=== PATIENT | female | born 1955 | race Caucasian/White ===

== ENCOUNTER 2017-05-30 09:29 | Emergency (ER) | payer OTHER, SELFPAY ==
[2017-05-30 09:32] VITALS: BP 156/84; PULSE 83; RESP 16; TEMP 36.8; O2SAT 96; BMI 23.3
--- NOTE | 2017-05-30 09:58 | RAD_ITS ---
STUDY: X-RAY - RIGHT HUMERUS REASON FOR EXAM: Female, 62 years old. Patient pulled while walking dog. Posterior right shoulder pain TECHNIQUE: 2 view(s) of the humerus. COMPARISON: None. FINDINGS: There is irregularity of the greater tuberosity of the humeral head with questionable nondisplaced fracture. There is cephalad migration of the humeral head which probably impinge on the rotator cuff. The acromioclavicular joint appears to be unremarkable. The humeral shaft appear unremarkable. There is no demonstrated soft tissue abnormality. RAD/Humerus min 2 Views IMPRESSION: Questionable nondisplaced fracture of the greater tuberosity of the humeral head. Shoulder views or CT scan of the shoulder are recommended. Electronically Signed: Pedro Young MD at 10:34 EST Tel , Service support ,
--- NOTE | 2017-05-30 10:06 | CT_ITS ---
STUDY: CT RIGHT SHOULDER REASON FOR EXAM: Female, 62 years old. Patient pulled while walking dog. Posterior right shoulder pain. RADIATION DOSAGE (If Supplied By Facility): CTDIvol = ( 12.34 ) mGy, DLP = ( 244.52 ) mGycm TECHNIQUE: The patient was scanned in a multi detector CT scanner. High resolution transaxial imaging was performed without the administration of intravenous contrast material. Sagittal and coronal images were reconstructed. Individualized dose optimization techniques were used for this CT. COMPARISON: None. FINDINGS: Normal glenohumeral articulation. Normal glenoid rim, neck and visualized scapula. Degenerative changes in the greater tuberosity of the humeral head. There is a nondisplaced fracture of the greater tuberosity. Normal coracoid process. Normal visualized lateral clavicle. Normal acromioclavicular articulation. There is a Type II morphology (curved), with a neutral orientation. There is a small calcification lateral to the humeral head consistent with calcific tendinitis. CT/Extremity Upper without Contra IMPRESSION: Nondisplaced fracture of the greater tuberosity of the humeral head. Calcific tendinitis of the right shoulder. Electronically Signed: Pedro Young MD at 11:05 EST Tel , Service support ,
--- NOTE | 2017-05-30 10:47 | ED.VISSUMM ---
- ER Visit Summary Date of Service: 05/30/17 Chief Complaint: Right shoulder injury History of Present Illness: The patient is a 62 F states last night around 10 PM she went to let the dog out. He was on a leash and pulled her. She fell down landing on her right shoulder and striking her head. She denies loss of consciousness. No nausea no vomiting. No arm or leg weakness or paresthesias. No speech difficulty. Patient notes pain in the right shoulder particularly with abduction. She states that below the shoulder joint her arm feels fine. Physical Examination: Afebrile vital signs are stable Gen: Well-nourished well-developed Head: Normocephalic atraumatic Eyes: Perrl EOMI ENT: TMs clear no rhinorrhea moist mucous membranes Neck: Supple no lymphadenopathy no JVD nontender CVS: Regular rate rhythm no murmurs normal S1-S2 Respiratory: No distress clear to auscultation bilaterally chest nontender Abdomen: Soft nontender nondistended normal bowel sounds no masses Back: Nontender Extremity: Patient is tender to palpation over the greater tuberosity of the right humerus. She has limited abduction. Neurovascularly she is intact distally. Skin: Normal color no rash Neuro: alert orientated ?3 CN II-XII intact normal strength sensation reflexes gait cerebellar Psych: Normal affect normal mood Test Results: X-rays demonstrate a probable nondisplaced greater tuberosity fracture. CT the shoulder was obtained which confirms the suspicion. Emergency Department Course and Treatment: She will be placed in a sling. I will write pain medication. She is seeing [facility] in the past and wishes to follow-up with them. I will place her images on a disc for their review. Impression: 1. Right humerus fracture This note was generated with [employer] dictation software. It may contain incorrect words, spelling, and punctuation that were not noted in review of the chart prior to signing ED Disposition - Plan for ED Patient: Disposition: Home or Assisted Living Chief Complaint: Upper Extremity Injury Instructions: ED Fx Shoulder Prescriptions: Hydrocodone Bitart/Apap 5-325 [[place] 5/325] 1 - 2 tab PO Q6H PRN PRN 4 Days #20 tab PRN Reason: Pain Referrals: Modesto Jeffries MD [Primary Care Provider] - Additional Instructions: Follow-up with [facility] orthopedics as discussed. Please take your x-rays with you.
--- NOTE | 2017-05-30 10:50 | ED.DCSUM_ITS ---
- ER Visit Summary Date of Service: 05/30/17 Chief Complaint: Right shoulder injury History of Present Illness: The patient is a 62 F states last night around 10 PM she went to let the dog out. He was on a leash and pulled her. She fell down landing on her right shoulder and striking her head. She denies loss of consciousness. No nausea no vomiting. No arm or leg weakness or paresthesias. No speech difficulty. Patient notes pain in the right shoulder particularly with abduction. She states that below the shoulder joint her arm feels fine. Physical Examination: Afebrile vital signs are stable Gen: Well-nourished well-developed Head: Normocephalic atraumatic Eyes: Perrl EOMI ENT: TMs clear no rhinorrhea moist mucous membranes Neck: Supple no lymphadenopathy no JVD nontender CVS: Regular rate rhythm no murmurs normal S1-S2 Respiratory: No distress clear to auscultation bilaterally chest nontender Abdomen: Soft nontender nondistended normal bowel sounds no masses Back: Nontender Extremity: Patient is tender to palpation over the greater tuberosity of the right humerus. She has limited abduction. Neurovascularly she is intact distally. Skin: Normal color no rash Neuro: alert orientated ?3 CN II-XII intact normal strength sensation reflexes gait cerebellar Psych: Normal affect normal mood Test Results: X-rays demonstrate a probable nondisplaced greater tuberosity fracture. CT the shoulder was obtained which confirms the suspicion. Emergency Department Course and Treatment: She will be placed in a sling. I will write pain medication. She is seeing [facility] in the past and wishes to follow-up with them. I will place her images on a disc for their review. Impression: 1. Right humerus fracture This note was generated with [employer] dictation software. It may contain incorrect words, spelling, and punctuation that were not noted in review of the chart prior to signing ED Disposition - Plan for ED Patient: Disposition: Home or Assisted Living Chief Complaint: Upper Extremity Injury Instructions: ED Fx Shoulder Prescriptions: Hydrocodone Bitart/Apap 5-325 [[place] 5/325] 1 - 2 tab PO Q6H PRN PRN 4 Days #20 tab PRN Reason: Pain Referrals: Modesto Jeffries MD [Primary Care Provider] - Additional Instructions: Follow-up with [facility] orthopedics as discussed. Please take your x- rays with you.
[2017-05-30 11:38] VITALS: PULSE 85; RESP 14; O2SAT 98
== END 2017-05-30 11:39 | disposition home or self-care (01) ==
PROVIDERS: Emergency Provider Emergency Medicine; Family Provider Family Medicine; PCP Family Medicine
DX: S42.301A Unspecified fracture of shaft of humerus, right arm, initial encounter for closed fracture (principal); W19.XXXA Unspecified fall, initial encounter; Y93.K1 Activity, walking an animal; Y92.9 Unspecified place or not applicable; F32.9 Major depressive disorder, single episode, unspecified; Z79.899 Other long term (current) drug therapy
CPT/HCPCS: 73060; 73200; 99282

== ENCOUNTER → 2017-07-08 15:33 | Outpatient (CLI) | payer OTHER, SELFPAY ==
--- NOTE | 2017-07-08 15:35 | BD_ITS ---
STUDY: DUAL ENERGY X-RAY ABSORPTIOMETRY / DXA REASON FOR EXAM: Female, 62 years old. The patient is postmenopausal. TECHNIQUE: Bone Mineral Density (BMD) measurements of lumbar spine and bilateral hips were obtained. COMPARISON: Comparison is made with prior study dated November 10, 2007. FINDINGS: Lumbar Spine (L1-L4): g/cm2 (0.947) / T-score (-1.9) / Z-score (-0.6) Findings are suggestive of osteopenia with a moderate fracture risk. Left Femur Total: g/cm2 (0.813) / T-score (-1.5) / Z-score (-0.5) Left Femoral Neck: g/cm2 (0.901) / T-score (-1.0) / Z-score (0.3) Right Femur Total: g/cm2 (0.793) / T-score (-1.7) / Z-score (-0.7) Right Femoral Neck: g/cm2 (0.810) / T-score (-1.6) / Z-score (-0.3) The T-Scores on the most recent prior examination were: Lumbar Spine (L1-L4): There has been worsening of bone density since the previous examination. Left Femur Total: which represents a worsening of 10.4%. Right Femur Total: . BD/Dexa Bone Density Study IMPRESSION: The patient is considered osteopenic as outlined below according to World Abelardo Organization (WHO) criteria with a moderate fracture risk. There has been worsening of bone density since the previous examination. Reference Information: The T-score is the number of standard deviations above or below the standard which is normal for young adults at their peak bone mineral density. The World Health Organization (WHO) interprets the T-scores as follows: Above -1 Normal bone density Between -1 and -2.5 Osteopenia Equal to / or below -2.5 Osteoporosis As a practical clinical guideline, osteopenia may be graded as follows: Mild -1 through -1.5 Moderate -1.6 through -2.0 Severe -2.1 through -2.4 The Z-score is the number of standard deviations above or below age-matched controls. A Z-score of less than -1.5 would be considered abnormal. References: 1. NIH Osteoporosis and Related Bone Diseases http://www.osteo.org 2. International Society for Clinical Densitometry http://www.iscd.org 3. National Osteoporosis Foundation http://www.nof.org Electronically Signed: Bernardo Leonard MD at 14:00 EDT Tel [phone], Service support ,
== END ==
PROVIDERS: Family Provider Family Medicine; PCP Family Medicine; Visit Provider Family Medicine
DX: Z78.0 Asymptomatic menopausal state (principal)
CPT/HCPCS: 77080

== ENCOUNTER 2017-07-13 20:05 | Emergency (ER) | payer OTHER, SELFPAY ==
[2017-07-13 20:06] VITALS: BP 149/95; PULSE 87; RESP 16; TEMP 36.8; O2SAT 95; BMI 23.6
--- NOTE | 2017-07-13 20:51 | RAD_ITS ---
STUDY: X-RAY - RIGHT SHOULDER REASON FOR EXAM: Female, 62 years old. Pain, injury TECHNIQUE: 4 view(s) of the shoulder. COMPARISON: 05/30/2017 FINDINGS: There is nondisplaced fracture at the proximal humerus with evidence of healing compared to prior examination. The glenohumeral joint is intact. Normal glenohumeral articulation. Normal acromioclavicular joint. Normal acromion. The soft tissue structures are unremarkable. Normal visualized pulmonary apex. RAD/Shoulder min 2 Views IMPRESSION: Healing nondisplaced fracture, proximal humerus Electronically Signed: Lio Pulliam MD at 21:33 EDT Tel , Service support ,
[2017-07-13] MEDS: HYDROcodone Bitartrate/Apap 5/325 Tablet PO (20:59)
--- NOTE | 2017-07-13 21:10 | RAD_ITS ---
STUDY: X-RAY - RIGHT HAND REASON FOR EXAM: Female, 62 years old. Injury, pain TECHNIQUE: 3 view(s) of the hand. COMPARISON: None. FINDINGS: There is osteoarthritis at the basal joint of the thumb. Normal radiocarpal articulation. Normal distal radioulnar joint. Normal visualized carpal bones. Normal carpal articulations Normal carpometacarpal articulation of the thumb. Normal second through fifth carpometacarpal joints. Normal metacarpi. Normal metacarpophalangeal joints of the second through fifth fingers. Normal proximal and distal interphalangeal joints of the second through fifth fingers. Normal phalanges of the second through fifth fingers. The soft tissue structures are unremarkable. RAD/Hand Min 3 Views IMPRESSION: No fracture Electronically Signed: Lio Pulliam MD at 21:26 EDT Tel , Service support ,
--- NOTE | 2017-07-13 22:00 | ED.DCSUM_ITS ---
- ER Visit Summary Date of Service: 07/13/17 Chief Complaint: Right upper extremity injury History of Present Illness: The patient is a 62 F who has a right shoulder fracture sustained approximately 6 weeks ago. Patient has been in a sling. Tonight she was out with her dog when she got pulled by the lesion fell onto her right shoulder. Complaining of worsening right shoulder pain and shooting pain in her right hand. She did not lose consciousness. Physical Examination: Vital signs unremarkable. Patient sitting upright in bed. She is uncomfortable but no acute distress. Head neck examination reveals a very small abrasion to the nasal bridge. There is no bony tenderness. No focal C-spine tenderness. Heart is regular rate and rhythm. Lung sounds are clear. Abdomen is soft nontender. Right upper extremity examination reveals no tenderness of the clavicle. She has diffuse tenderness around the right humeral head. There is no evidence of dislocation. There is no tenderness of the elbow. She does have diffuse tenderness of the right hand without deformity. Pain is worse over the index and middle finger phalanges and metacarpals. She has good cap refill and sensation distally. Test Results: Right hand x-rays reveal no fracture. Right shoulder x-ray reveals a healing nondisplaced fracture the proximal humerus. Emergency Department Course and Treatment: Patient was given [place] here for pain. On repeat evaluation she is resting much more comfortably. Test results were discussed with patient and at bedside. She will remain in her sling and follow-up with her orthopedist at [facility]. She really has pain medication at home that she can use. Treatment Plan: [] Disposition: Discharge Impression: Right shoulder contusion with healing proximal humerus fracture This note was generated with [employer] dictation software. It may contain incorrect words, spelling, and punctuation that were not noted in review of the chart prior to signing ED Disposition - Plan for ED Patient: Disposition: Home or Assisted Living Chief Complaint: Upper Extremity Injury Instructions: ED Contusion Upper Ext Referrals: Modesto Jeffries MD [Primary Care Provider] -
[2017-07-13 22:07] VITALS: BP 162/80; PULSE 62; RESP 16; O2SAT 95
== END 2017-07-13 22:08 | disposition home or self-care (01) ==
PROVIDERS: Emergency Provider Emergency Medicine; Family Provider Family Medicine; PCP Family Medicine
DX: S40.011A Contusion of right shoulder, initial encounter (principal); W19.XXXA Unspecified fall, initial encounter; S42.201A Unspecified fracture of upper end of right humerus, initial encounter for closed fracture; X58.XXXA Exposure to other specified factors, initial encounter; S00.31XA Abrasion of nose, initial encounter; Y93.9 Activity, unspecified; Y92.9 Unspecified place or not applicable; F41.9 Anxiety disorder, unspecified; F32.9 Major depressive disorder, single episode, unspecified; Z90.710 Acquired absence of both cervix and uterus; Z79.899 Other long term (current) drug therapy; Z72.0 Tobacco use
CPT/HCPCS: 73030; 73130; 99283

== ENCOUNTER 2017-08-11 16:30 | Outpatient (RCR) | payer OTHER, SELFPAY ==
--- NOTE | 2017-07-13 13:35 | HP.PTEVAL ---
Patient's Visit Information MRAI EDEN is a 62 year old F referred to Physical Therapy by DR.RSTACH Evelina with a diagnosis of RIGHT SHOULDER NON-DISPLACED FX OF GREATER TUBEROSITY OF HUMERUS.. Date of Evaluation: 07/13/17 Physical Therapist: Aurelia Valencia - Visit Plan Frequency: 2-3x /Week Duration: 4-6 Weeks Plan: POSTURE CORRECTION/STRENGTHENING, INSTRUCTION IN APPROPRIATE BODY MECHANICS AND ACTIVITY MODIFICATIONS. [place] UE ROM, STRETCHING AND STRENGTHENING STARTING WITH PASSIVE ROM FOR 2 WEEKS THEN BEGIN AROM. HEP INSTRUCTION. - Subjective Subjective: Diagnosis: CLOSED NON-DISPLACED FX OF GREATER TUBEROSITY OF THE RIGHT HUMERUS. 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 Disability: NO. Present symptoms: RIGHT SHOULDER AND UPPER ARM PAIN. NO PAIN, NUMBNESS OR TINGLING BELOW THE ELBOW. Present since: 05/30/17. Pain Scale: WORST 9/10, LEAST 0/10. Currently: 0/10. Commenced as a result of: FALL. Symptoms at onset: RIGHT SHOULDER/ARM. Worse: TRYING TO REACH. Better: RESTING IT. Disturbed sleep: YES. Previous history/Previous treatment: UNREMARKABLE. HISTORY OF NECK ARTHRITIS. Dizziness: NO. Tinnitis: CHRONIC. Nausea: NO. Difficulty Swollowing: NO. Gait: NORMAL. Accidents: FX LEFT WRIST LAST YEAR - ORIF. FROM FALL. Unexplained weight loss: NO. Imaging: YES - ED AND THEN AT [facility]. PATIENT REPORTS SHE BROKE HER ARM IN 3 PLACES. NO MRI. PMH: DEPRESSION. NO CANCER. NO CVA. NOT DIABETIC. NO HEART DZ. Recent major surgery: 2017 ORIF LEFT WRIST. OTHER: PATIENT REPORTS THAT SHE ADMITS SHE HAS BEEN USING HER RIGHT ARM OUT OF THE SLING. PATIENT IS RIGHT HAND DOMINANT. - Objective Sitting Posture: POOR. Other Observations: INDEP GAIT INTO PT WITH NO GROSS DEVIATIONS NOTED. PATIENT IS ABLE TO INDEP'LY DON AND DOFF SLING. Motor deficit: LEFT UE WFL. RIGHT NT. Sensory deficit: INTACT. ROM deficit: PATIENT IS VERY GUARDED AND PAINFUL WITH PROM TESTING TODAY. IN SUPINE, RIGHT SHOULDER PROM INTO FLEX = 65 DEG, ABD 45 DEG, IR = 30 DEG, ER = 10 DEG. ROTATION TESTED WITH 40 DEG ABD. RIGHT ELBOW, FOREARM, WRIST AND HAND AROM IS FULL AND DOES NOT PROVOKE RIGHT SHOULDER PAIN. Cervical Mvmt Loss: Flex: NIL. Pro: NIL. Ext: MOD. Ret: RD. RSB: MOD. LSB: MOD. R Rot: MOD. L Rot: MOD. PATIENT HAS C/O STIFFNESS WITH CERVICAL ROM TESTING ALL PLANES AND REPORTS IT HAS BEEN THIS WAY FOR YEARS. Postural strength: POOR. TREATMENT: INSTRUCTED PATIENT IN CW AND CCW PASSIVE PENDULUM EX X [address] HOME INSTRUCTION TO CONTINUE PENDULEM EX 3 TIMES A DAY ALONG WITH AROM OF ELBOW, FOREARM, WRIST AND HAND. PATIENT DEMO'S GOOD TECHNIQUE WITH AND TOLERANCE TO ALL HOME EX'S. - Goals Goal 1:: DECREASE C/O RIGHT UE PAIN Goal Time Frame: 4-6 Weeks Goal 2:: IMPROVE LIFTING, REACHING, PUSHING, PULLING, ADL, WORK, RECREATIONAL AND SLEEP FUCNTION. Goal Time Frame: 4-6 Weeks Goal 3:: INDEP HEP Goal Time Frame: 4-6 Weeks - Rehabilitation Potential Rehabilitation Potential: Fair - Anticipated Interventions Patient/Client Instruction: Educate patient on: Condition, Plan of Care, Risk Factors, Benefits of Fitness Program For the Purpose of:: To improve self management Therapeutic Exercise to Include: Strength training, Body mechanics, Postural training, Passive ROM, Active ROM, Scapular Strength/Stabilization For the Purpose of:: To decrease pain, To increase ROM, To improve muscle performance and motor function, To improve ability to perform ADL's, To improve ability of physical actions for home/community/work/leisure Manual Therapy Techniques to Include: Passive ROM For the Purpose of:: To increase ROM Cryotherapy (ice pack, ice massage): Yes Thermo therapy (hot pack): Yes For the Purpose of:: To decrease pain, To decrease swelling/inflammation, To increase ROM Thank you for the opportunity to evaluate your patient. For Medicare and Medicare HMO plans, please review the plan of care and approve it. It will need to be FAXED BACK to us at [phone] for Medicare purposes. Please let me know if there are questions or concerns regarding this plan of care. Physician Signature: Date:
--- NOTE | 2017-08-09 17:34 | HP.PTREVAL_ITS ---
Iglesia Bass, , It has been my pleasure to treat MARI EDEN over the last 8 visits for RIGHT SHOULDER NON-DISPLACED FX OF GREATER TUBEROSITY OF HUMERUS.. Please see the progress note below for an update on the physical therapy plan of care! Subjective: PATIENT REPORTS SHE THINKS SHE WANTS TO CANCEL THE REST OF HER THERAPY BECAUSE SHE CAN MOVE HER ARM A LOT MORE NOW. SHE REPORTS IT IS SUMMER AND SHE IS BUSY. 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 SHE ALSO REPORTS IT GETS SORE THE DAY AFTER THERAPY. SHE STATES SHE IS HAPPY WITH HOW BAL AND JOSE TREAT HER AND SHE FEELS THEY WOULD EASE UP IF SHE WANTED THEM TO. SHE ADMITS THAT SHE DOES NOT DO HER EX'S AT HOME EVERYDAY - MAYBE EVERY OTHER DAY. SHE ALSO REPORTS SHE HAS BEEN USING HER ARM TOO AND THEN SHE FEELS GUILTY BECAUSE SHE KNOWS SHE ISN'T SUPPOSED TO BE. 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 SHE REPORTS SHE STILL GETS A CATCH IN HER SHOULDER WHEN STRETCHING IT BUT THE CATCH IS GETTING BETTER. SHE HAS A FOLLOW UP APPOINTMENT WITH HER DOCTOR 08/23/17. SHE REPORTS HE TOLD HER NOT TO LIFT WITH HER ARM YET BECAUSE HE IS AFRAID SHE MIGHT TEAR IT. STATES HE TOLD HER HE MIGHT DO A CAT SCAN NEXT VISIT. Objective/Function: UPON EXAM, PATIENT STILL HAS SIGNIFICANT DECREASED RIGHT SHOULDER PROM AND AROM. SEATED ACTIVE FLEX = 110 DEG, ABD = 70 DEG. SUPIINE PROM: FLEX 125 DEG, ABD 78 DEG, ER/IR 40/45 DEG WITH 45 DEG ABD. SHE HAS PAIN WITH ROM TESTING ALL PLANES. Plan Plan: I STRONGLY RECOMMENDED CONTINUED PT PER POC. SHE IS RELUCTANT BUT AGREED TO CONTINUE PT 1X/WEEK. WE WILL CONTINUE WITH ROM - AND NO RESISTANCE YET UNTIL OK'D BY Goals Goal 1:: DECREASE C/O RIGHT UE PAIN Goal Time Frame: 4-6 Weeks Goal Progress: Progressing Goal 2:: IMPROVE LIFTING, REACHING, PUSHING, PULLING, ADL, WORK, RECREATIONAL AND SLEEP FUCNTION. Goal Time Frame: 4-6 Weeks Goal Progress: Progressing Goal 3:: INDEP HEP Goal Time Frame: 4-6 Weeks Goal Progress: Progressing Anticipated Interventions Patient/Client Instruction: Educate patient on: Condition, Plan of Care, Risk Factors, Benefits of Fitness Program For the Purpose of:: To improve self management Therapeutic Exercise to Include: Strength training, Body mechanics, Postural training, Passive ROM, Active ROM, Scapular Strength/Stabilization For the Purpose of:: To decrease pain, To increase ROM, To improve muscle performance and motor function, To improve ability to perform ADL's, To improve ability of physical actions for home/community/work/leisure Manual Therapy Techniques to Include: Passive ROM For the Purpose of:: To increase ROM Cryotherapy (ice pack, ice massage): Yes Thermo therapy (hot pack): Yes For the Purpose of:: To decrease pain, To decrease swelling/inflammation, To increase ROM Please do not hesitate to contact me at [phone] by phone or Fax: if you have questions or concerns regarding this new plan of care! Sincerely, Aurelia Valencia
--- NOTE | 2017-09-22 17:54 | HP.PT.NRP ---
HP - Discharge Summary (1) - Patient Information MARI EDEN was seen in my office for initial evaluation on 07/13/17. The following Plan of Care was established for this patient: Initial Frequency: 2-3x /Week Initial Duration: 4-6 Weeks - Anticipated Interventions Patient/Client Instruction: Educate patient on: Condition, Plan of Care, Risk Factors, Benefits of Fitness Program For the Purpose of:: To improve self management Therapeutic Exercise to Include: Strength training, Body mechanics, Postural training, Passive ROM, Active ROM, Scapular Strength/Stabilization For the Purpose of:: To decrease pain, To increase ROM, To improve muscle performance and motor function, To improve ability to perform ADL's, To improve ability of physical actions for home/community/work/leisure Manual Therapy Techniques to Include: Passive ROM For the Purpose of:: To increase ROM Cryotherapy (ice pack, ice massage): Yes Thermo therapy (hot pack): Yes For the Purpose of:: To decrease pain, To decrease swelling/inflammation, To increase ROM This patient was last seen in our office . Pertinent comments regarding their Physical therapy will appear below: This patient has not returned to Physical Therapy and is appropriate to return to MD for further follow-up as needed. At this point I will be discontinuing this patient from physical therapy. I would be happy to see this patient again in the future if found appropriate by the physician. Thank you! Aurelia Valencia
== END 2017-08-11 19:00 | disposition home or self-care (01) ==
LOC: PT 16:30
PROVIDERS: Family Provider Family Medicine; PCP Family Medicine; Visit Provider Orthopaedic Surgery Hand Surgery
DX: S42.254D Nondisplaced fracture of greater tuberosity of right humerus, subsequent encounter for fracture with routine healing (principal)
CPT/HCPCS: 97110; 97140; 97162; 97530

== ENCOUNTER 2017-08-30 15:34 | Emergency (ER) | payer OTHER, SELFPAY ==
[2017-08-30 15:35] VITALS: BP 125/79; PULSE 81; RESP 15; TEMP 36.3; O2SAT 97; BMI 24.5
--- NOTE | 2017-08-30 15:37 | RAD_ITS ---
STUDY: X-RAY - RIGHT WRIST REASON FOR EXAM: Female, 62 years old. Trauma TECHNIQUE: 3 view(s) of the wrist were obtained. COMPARISON: None. FINDINGS: Normal visualized distal radius and ulna. Normal radiocarpal articulation. Normal distal radioulnar articulation. Normal carpal bones. Normal carpal articulations. Mild arthrosis of the carpometacarpal articulation of the thumb. Normal second through fifth carpometacarpal articulations. Normal visualized metacarpal bones. The soft tissue structures are unremarkable. RAD/Wrist min 3 Views IMPRESSION: Mild degenerative changes. No evidence for acute fracture Electronically Signed: Darci Porter MD at 17:10 EDT , Service support ,
--- NOTE | 2017-08-30 15:57 | ED.DCSUM_ITS ---
- ER Visit Summary Date of Service: 08/30/17 Chief Complaint: The right wrist secondary to fall yesterday History of Present Illness: The patient is a 62 F who is right-handed presents with injury to her right wrist. She fell onto her outstretched right upper extremity. She localizes the pain over the radius and dorsal surface of the right wrist. Movement exacerbates her pain. She denies paresthesia, anesthesia moderates. Denies prior injury. She denies any pain in her digits, elbow or shoulder. Physical Examination: Vital signs are noted. There is swelling of the wrist. There is pain abrasion over the distal radius radial side. She has pain to palpation over the extensor tendon in the first compartment. She has a positive Kristie test. There is no pain the patient the anatomical snuffbox or axial loading the thumb. Median, radial and ulnar function intact. Radial pulses palpable. There is no pain the patient of the phalanges or metacarpal bones. There is no subungual hematoma noted. Cap refill is normal. Sensation is normal. There is no pain the patient over the lateral medial epicondyle olecranon process. Test Results: Three-view x-ray was ordered per nursing staff per protocol. The x-ray was interpreted by me as negative for fracture. There is no evidence of a scapholunate dissociation. There is no volar fat pad noted. Emergency Department Course and Treatment: Anti-inflammatories since no contra indication thumb spica splint Treatment Plan: Thumb spica splint for wrist sprain extensor tendon first compartment, De Quervain tenosynovitis Disposition: Discharged to home Impression: De Quervain's tenosynovitis right wrist initial encounter This note was generated with [employer] dictation software. It may contain incorrect words, spelling, and punctuation that were not noted in review of the chart prior to signing ED Disposition - Plan for ED Patient: Disposition: Home or Assisted Living Chief Complaint: Upper Extremity Injury Instructions: ED De Quervain Tenosynovitis Prescriptions: Naproxen [Naprosyn] 500 mg PO BID #14 tab Referrals: Modesto Jeffries MD [Primary Care Provider] - 1 Week if not improving
== END 2017-08-30 16:42 | disposition home or self-care (01) ==
LOC: ED 16:33
PROVIDERS: Emergency Provider Emergency Medicine; Family Provider Family Medicine; PCP Family Medicine
DX: M65.4 Radial styloid tenosynovitis [de Quervain] (principal); Z72.0 Tobacco use
CPT/HCPCS: 73110; 99282

== ENCOUNTER → 2018-04-12 16:59 | Outpatient (CLI) | payer OTHER, SELFPAY | PROVIDERS: Family Provider Family Medicine; PCP Family Medicine; Referring Provider Otolaryngology Otolaryngology/Facial Plastic Surgery; Visit Provider Otolaryngology Otolaryngology/Facial Plastic Surgery | DX: J34.89 Other specified disorders of nose and nasal sinuses (principal) | CPT/HCPCS: 87070; 87205 ==

== ENCOUNTER 2018-04-18 07:05 | Inpatient (IN) | payer OTHER, SELFPAY ==
[2018-04-18] VITALS (22 sets, daily range): BP systolic 111–151; BP diastolic 63–85; PULSE 61–85; RESP 14–20; TEMP 36.6–37; O2SAT 97–100; BMI 24.4; BMI 24.5; BMI 24.6
--- NOTE | 2018-04-18 07:31 | EKG12_ITS ---
Test Reason : CP Blood Pressure : / mmHG Vent. Rate : 076 BPM Atrial Rate : 076 BPM P-R Int : 136 ms QRS Dur : 078 ms QT Int : 376 ms P-R-T Axes : 051 -46 050 degrees QTc Int : 423 ms Normal sinus rhythm Possible Left atrial enlargement Left anterior fascicular block Possible Lateral infarct , age undetermined Abnormal ECG Confirmed by CLEM SHEIKH, TRAY ([id number]), publishing editor WESLEY MARIANO ([id number]) on 04/19/2018 5:15:59 PM Referred By: Tray Castillo Confirmed By:TRAY CASTILLO MD
--- NOTE | 2018-04-18 07:34 | RAD_ITS ---
STUDY: X-RAY CHEST REASON FOR EXAM: Female, 62 years old. Chest pain. TECHNIQUE: Single AP portable view of the chest. COMPARISON: May 28, 2015 FINDINGS: Cardiac monitoring leads are present. The lungs are clear and hyperexpanded. There is no demonstrated pleural abnormality. There is borderline cardiomegaly. Normal mediastinum and aydin. Normal visualized pulmonary arteries. There is atherosclerotic tortuosity of the aortic arch and descending thoracic aorta. There is demineralization of the osseous structures. There are mild degenerative changes of thoracic spine. There is deformity of the posterior right-sided rib probably related to old rib fracture. There is no demonstrated abnormality of the visualized soft tissue structures of the upper abdomen. RAD/Chest 1 View (Portable) IMPRESSION: No radiographic evidence of acute cardiopulmonary disease. Electronically Signed: Jennifer Jordan MD at 8:08 EST , Service support ,
[2018-04-18] MEDS: Aspirin 81 MG TAB.CHEW 324 MG PO (07:46)
[2018-04-18] MEDS: 0.9% Normal Saline 1,000 ML 150 ML IV (07:46)
--- NOTE | 2018-04-18 07:50 | ED.VISSUMM ---
- ER Visit Summary Date of Service: 04/18/18 Chief Complaint: Chest pain History of Present Illness: The patient is a [address] Modesto Jeffries. She reports that she developed chest pain yesterday afternoon while going up and down the steps. She reports that she became lightheaded, short of breath, diaphoretic, and nauseated. She did not vomit. She describes this as a pressure. She does report is been constant since this began yesterday. However, it is much worse when she exerts herself. It is 2 out of 10 currently and 6 out of 10 with exertion. She states that it improves with rest. Patient reports that she had an episode of this in the summer when she was mowing the lawn. She has not had a evaluation for this. She reports that her last stress test was a long time ago. Physical Examination: Vitals: Stable. Afebrile. General: Well-nourished and well-developed. Head: Normocephalic atraumatic. Neck: Supple, no lymphadenopathy. No JVD. Nontender. Cardiovascular: Regular rate and rhythm. No murmurs. Respiratory: No respiratory distress. Clear to auscultation bilaterally. Abdominal: Soft, nontender, nondistended, normal bowel sounds. No guarding, rebound, or peritoneal signs. Back: Nontender. Extremities: Nontender, no edema. Skin: Normal color, no rash. Neurologic: Alert and oriented ?3. Cranial nerves II through XII are intact. Normal strength and sensation. Psych: Normal affect. Test Results: EKG is sinus at [address] changes. She does have a Q wave in lead V6 and lead II. There is no old EKG for comparison. CBC is more for a white count of 4.2, H&H 15.5 and 47.8, segmented neutrophils of 15, lymphocytes 62, monocytes of 18. Chem-7 is more for BUN of 23, creatinine 1.16, glucose 114. Troponin is 3.04. Chest x-ray shows chronic changes. Emergency Department Course and Treatment: Patient had an IV placed. She was treated with aspirin p.o. She is resting comfortably. Treatment Plan: The patient was discussed with Dr. Castillo. He has that she be given Brilinta. Hold on heparin and Lovenox at this time. He plans on doing a heart catheterization today. The patient was then discussed with Dr. Prakash. She will be admitted to the hospital for further evaluation and treatment. Disposition: Admitted in improved condition. Impression: 1. Non-ST elevation IA. 2. ARIADNA score of 2. 3. Critical care time 30 minutes. This note was generated with [employer] dictation software. It may contain incorrect words, spelling, and punctuation that were not noted in review of the chart prior to signing ED Disposition - Plan for ED Patient: Chief Complaint: Chest Pain Referrals: Modesto Jeffries MD [Primary Care Provider] -
[2018-04-18 08:04] LABS: Absolute Lymphocyte Count 2.62 X10^3/ul (0.83-4.51); Absolute Neutrophil Count 0.6 X10^3/uL (2.0-7.7); Basophil# 0.05 X10^3/uL; Basophil% 1.2 % (0-1); Eosinophil# 0.17 X10^3/uL; Hematocrit 47.8 % (37-47); Hemoglobin 15.5 g/dl (12.0-15.0); Lymphocyte # 2.62 X10^3/ul (4.0); Lymphocyte % 62.2 % (19-41); Mean Corp Hgb Conc 32.4 g/gl (32-36); Mean Corpuscular Hgb 32.1 pg (27.0-32.0); Mean Platelet Vol. 12.5 fl (6.2-12.0); Monocyte# 0.75 X10^3/uL; Monocyte% 17.8 % (0-10); Neutrophil # 0.62 X10^3/uL (2.7-7.7); Neutrophil % 14.8 % (47-70); Platelet Count 240 K/mm3 (150-450); RBC Distribution Width CV 12.8 % (11.6-14.6); RBC Distribution Width SD 46.5 fl (35.1-43.9); Red Blood Count 4.83 M/mm3 (4.2-5.4); White Blood Count 4.2 K/mm3 (4.4-11.0)
[2018-04-18 08:07] LABS: Differential Indicated SCAN CRITERIA MET; POSITIVE COUNT NO; POSITIVE DIFFERENTIAL YES; POSITIVE MORPHOLOGY NO
--- NOTE | 2018-04-18 08:08 | ED.DCSUM_ITS ---
- ER Visit Summary Date of Service: 04/18/18 Chief Complaint: Chest pain History of Present Illness: The patient is a [address] Modesto Jeffries. She reports that she developed chest pain yesterday afternoon while going up and down the steps. She reports that she became lightheaded, short of breath, d iaphoretic, and nauseated. She did not vomit. She describes this as a pressure. She does report is been constant since this began yesterday. However, it is much worse when she exerts herself. It is 2 out of 10 currently and 6 out of 10 with exertion. She states that it improves with rest. Patient reports that she had an episode of this in the summer when she was mowing the lawn. She has not had a evaluation for this. She reports that her last stress test was a long time ago. Physical Examination: Vitals: Stable. Afebrile. General: Well-nourished and well-developed. Head: Normocephalic atraumatic. Neck: Supple, no lymphadenopathy. No JVD. Nontender. Cardiovascular: Regular rate and rhythm. No murmurs. Respiratory: No respiratory distress. Clear to auscultation bilaterally. Abdominal: Soft, nontender, nondistended, normal bowel sounds. No guarding, rebound, or peritoneal signs. Back: Nontender. Extremities: Nontender, no edema. Skin: Normal color, no rash. Neurologic: Alert and oriented ?3. Cranial nerves II through XII are intact. Normal strength and sensation. Psych: Normal affect. Test Results: EKG is sinus at [address] changes. She does have a Q wave in lead V6 and lead II. There is no old EKG for comparison. CBC is more for a white count of 4.2, H&H 15.5 and 47.8, segmented neutrophils of 15, lymphocytes 62, monocytes of 18. Chem-7 is more for BUN of 23, creatinine 1.16, glucose 114. Troponin is 3.04. Chest x-ray shows chronic changes. Emergency Department Course and Treatment: Patient had an IV placed. She was treated with aspirin p.o. She is resting comfortably. Treatment Plan: The patient was discussed with Dr. Castillo. He has that she be given Brilinta. Hold on heparin and Lovenox at this time. He plans on doing a heart catheterization today. The patient was then discussed with Dr. Prakash. She will be admitted to the hospital for further evaluation and treatment. Disposition: Admitted in improved condition. Impression: 1. Non-ST elevation CT. 2. ARIADNA score of 2. 3. Critical care time 30 minutes. This note was generated with [employer] dictation software. It may contain incorrect words, spelling, and punctuation that were not noted in review of the chart prior to signing ED Disposition - Plan for ED Patient: Chief Complaint: Chest Pain Referrals: Modesto Jeffries MD [Primary Care Provider] -
[2018-04-18 08:15] LABS: Anion Gap 8 (5-15); BUN 23 mg/dL (7-18); BUN/Creat Ratio 19.8 RATIO (10-20); Calcium,Total 9.3 mg/dL (8.5-10.1); Chloride 103 mmol/L (98-107); Creatinine, Serum 1.16 mg/dL (0.55-1.02); EST Glomerular Filtration Rate 50 mL/min (>60); Est Glom Filt Rate - Afr Amer 61 mL/min (>60); Estimated Creatinine Clearance 43.42 ml/min; Glucose 114 mg/dL (74-106); Potassium 3.8 mmol/L (3.5-5.1); Sodium Level 138 mmol/L (136-145)
--- NOTE | 2018-04-18 09:08 | NURSING ---
DR CRISTIANE BARCENAS
--- NOTE | 2018-04-18 09:08 | NURSING ---
PCU NSTEMI CRISTIANE
--- NOTE | 2018-04-18 09:23 | CASEMGMT ---
According to [employer] website, the following are in-network tertiary facilities: [facility], [place], [facility], [facility], [facility], [facility], and . Rochelle CHRISTINE CM
--- NOTE | 2018-04-18 09:26 | PCM.CONS.C ---
Reason for Consult Date of Consultation: 04/18/18 Reason for Consultation: Chest tightness History of Present Illness: The patient is a 62 year old F who sees Dr. Modesto Jeffries. She reports that she developed chest pain yesterday afternoon while going up and down the steps. She reports that she became lightheaded, short of breath, diaphoretic, and nauseated. She did not vomit. She describes this as a pressure. She does report is been constant since this began yesterday. However, it is much worse when she exerts herself. It is 2 out of 10 currently and 6 out of 10 with exertion. She states that it improves with rest. She presented to the emergency room was evaluated and EKG was done which demonstrated nonspecific changes. However her troponin was noted to be abnormal. Cardiology was called for further evaluation and management. She does states that she had an episode of chest tightness last summer while she was mowing the lawn however she did not seek any medical attention. Past Medical History Allergies/Adverse Reactions: Allergies Iodinated Contrast- Oral and IV Dye [Iodinated Contrast Media - IV Dye] Adverse Reaction (Verified 04/18/18 07:06) Vomiting Home Medications: Ambulatory Orders Medication Instructions Recorded Sertraline HCl [Zoloft] 100 mg PO BID 02/09/16 busPIRone [Buspar] 10 mg PO BID 05/30/17 Sulfamethoxazole/Trimethoprim 1 tab PO BID 04/18/18 [Bactrim Ds Tablet] Lives: Spouse/ Significant Other Smoking Status: Current every day smoker Alcohol: Heavy Drugs: None Review of Systems - Review of Systems General: Denies: Fever, Night Sweats, Fatigue HEENT: Denies: Vision Change Cardiovascular: Reports: Chest Discomfort, Chest Pressure, Chest Tightness, Shortness of Breath, Shortness of Breath with Exertion, Dizziness. Denies: Orthopnea, PND, Peripheral Edema, Palpitations, Lightheadedness, Near Syncope, Syncope Respiratory: Denies: Cough, Sputum Production, Hemoptysis Gastrointestinal: Denies: Indigestion, Hematemesis, Hematochezia, Melena Genitourinary: Denies: Dysuria, Hematuria Muscoloskeletal: Denies: Myalgias Skin: Denies: Rash Neurological: Reports: Dizziness Psychiatric: Denies: Anxiety Endocrine: Denies: Unexplained Weight Loss Hematologic/ Lymphatic: Denies: Anemia Subjectve: Pleasant lady in no apparent distress Objective: Vital Signs Temp Pulse Resp BP Pulse Ox 98.6 F 72 17 111/71 97 04/18/18 08:30 04/18/18 08:30 04/18/18 08:30 04/18/18 08:30 04/18/18 08:30 Oxygen Flow Rate (L/min) 2 Oxygen Delivery Method Room Air Weight: 142 lb 6.698 oz Body Mass Index (BMI) 24.4 General: Awake, Alert, Oriented x 3 HEENT: PERRL, EOMI, Sclera Non Icteric Neck: Supple, Good ROM, No Lymph Node Enlargement Lungs: Clear to auscultation Cardiovascular: Regular Rhythm, Normal S1, Normal S2, No Murmurs, No Rubs, No Gallops Vascular: No Carotid Bruits, Normal Femoral Pulses, Normal Radial Pulses, Normal Dorsalis Pedal Pulse, Normal Posterior Tibial Pulses Abdomen: Bowel Sounds Present, Soft, Non Tender, No HSM, No Organomegaly Extremities: No Cyanosis, No Clubbing, No edema Neurological: No Focal Motor or Sensory Deficit Psych/Mental Status: Appropriate 04/18/18 07:00: WBC 4.2 L, RBC 4.83, Hgb 15.5 H, Hct 47.8 H, MCV 99.0, MCH 32.1 H, MCHC 32.4, RDW 12.8, RDW Differential 46.5 H, Plt Count 240, MPV 12.5 H, Immature Gran % (Auto) 0.000, Neut % (Auto) 14.8 L, Lymph % (Auto) 62.2 H, Bertie % (Auto) 17.8 H, Eos % (Auto) 4.0, Baso % (Auto) 1.2 H, Absolute Neuts (auto) 0.6 L, Total Counted Not Reportable 04/18/18 07:00: Sodium 138, Potassium 3.8, Chloride 103, Carbon Dioxide 27.0, Anion Gap 8, BUN 23 H, Creatinine 1.16 H, Est GFR (MDRD) Af Amer 61, Est GFR (MDRD) Non-Af 50 L, BUN/Creatinine Ratio 19.8, Glucose 114 H, Calcium 9.3, Troponin I 3.040 H* Rhythm: EKG: Normal sinus rhythm with nonspecific ST-T wave changes Assessment/Plan 1. Non-ST elevation myocardial infarction She presents with chest discomfort and is noted to have a non-ST elevation myocardial infarction. She does have risk factors with significant tobacco use. Her lipid level is unknown at this particular time. Recommendation will be to start aspirin Load with clopidogrel or ticagrelor Discussed cardiac catheterization within the next few hours. The risk benefits and alternatives have been explained to her she understands and agrees to proceed. This was also discussed with the ER physicians. Thank you for allowing me to participate in the care of your patient. Please don't hesitate to call if any issues arise
--- NOTE | 2018-04-18 09:28 | NURSING ---
DR NJ IN ROOM. TAKING PATIENT TO AUTOMATION APPLICATION ENGINEER
--- NOTE | 2018-04-18 09:30 | CON.PCM_ITS ---
Reason for Consult Date of Consultation: 04/18/18 Reason for Consultation: Chest tightness History of Present Illness: The patient is a 62 year old F who sees Dr. Modesto Jeffries. She reports that she developed chest pain yesterday afternoon while going up and down the steps. She reports that she became lightheaded, short of breath, diaphoretic, and nauseated. She did not vomit. She describes this as a pressure. She does report is been constant since this began yesterday. However, it is much worse when she exerts herself. It is 2 out of 10 currently and 6 out of 10 with exertion. She states that it improves with rest. She presented to the emergency room was evaluated and EKG was done which demonstrated nonspecific changes. However her troponin was noted to be abnormal. Cardiology was called for further evaluation and management. She does states that she had an episode of chest tightness last summer while she was mowing the lawn however she did not seek any medical attention. Past Medical History Allergies/Adverse Reactions: Allergies Iodinated Contrast- Oral and IV Dye [Iodinated Contrast Media - IV Dye] Adverse Reaction (Verified 04/18/18 07:06) Vomiting Home Medications: Ambulatory Orders Medication Instructions Recorded Sertraline HCl [Zoloft] 100 mg PO BID 02/09/16 busPIRone [Buspar] 10 mg PO BID 05/30/17 Sulfamethoxazole/Trimethoprim 1 tab PO BID 04/18/18 [Bactrim Ds Tablet] Lives: Spouse/ Significant Other Smoking Status: Current every day smoker Alcohol: Heavy Drugs: None Review of Systems - Review of Systems General: Denies: Fever, Night Sweats, Fatigue HEENT: Denies: Vision Change Cardiovascular: Reports: Chest Discomfort, Chest Pressure, Chest Tightness, Shortness of Breath, Shortness of Breath with Exertion, Dizziness. Denies: Orthopnea, PND, Peripheral Edema, Palpitations, Lightheadedness, Near Syncope, Syncope Respiratory: Denies: Cough, Sputum Production, Hemoptysis Gastrointestinal: Denies: Indigestion, Hematemesis, Hematochezia, Melena Genitourinary: Denies: Dysuria, Hematuria Muscoloskeletal: Denies: Myalgias Skin: Denies: Rash Neurological: Reports: Dizziness Psychiatric: Denies: Anxiety Endocrine: Denies: Unexplained Weight Loss Hematologic/ Lymphatic: Denies: Anemia Subjectve: Pleasant lady in no apparent distress Objective: Vital Signs Temp Pulse Resp BP Pulse Ox 98.6 F 72 17 111/71 97 04/18/18 08:30 04/18/18 08:30 04/18/18 08:30 04/18/18 08:30 04/18/18 08:30 Oxygen Flow Rate (L/min) 2 Oxygen Delivery Method Room Air Weight: 142 lb 6.698 oz Body Mass Index (BMI) 24.4 General: Awake, Alert, Oriented x 3 HEENT: PERRL, EOMI, Sclera Non Icteric Neck: Supple, Good ROM, No Lymph Node Enlargement Lungs: Clear to auscultation Cardiovascular: Regular Rhythm, Normal S1, Normal S2, No Murmurs, No Rubs, No Gallops Vascular: No Carotid Bruits, Normal Femoral Pulses, Normal Radial Pulses, Normal Dorsalis Pedal Pulse, Normal Posterior Tibial Pulses Abdomen: Bowel Sounds Present, Soft, Non Tender, No HSM, No Organomegaly Extremities: No Cyanosis, No Clubbing, No edema Neurological: No Focal Motor or Sensory Deficit Psych/Mental Status: Appropriate 04/18/18 07:00: WBC 4.2 L, RBC 4.83, Hgb 15.5 H, Hct 47.8 H, MCV 99.0, MCH 32.1 H, MCHC 32.4, RDW 12.8, RDW Differential 46.5 H, Plt Count 240, MPV 12.5 H, Immature Gran % (Auto) 0.000, Neut % (Auto) 14.8 L, Lymph % (Auto) 62.2 H, Dickenson % (Auto) 17.8 H, Eos % (Auto) 4.0, Baso % (Auto) 1.2 H, Absolute Neuts (auto) 0.6 L, Total Counted Not Reportable 04/18/18 07:00: Sodium 138, Potassium 3.8, Chloride 103, Carbon Dioxide 27.0, Anion Gap 8, BUN 23 H, Creatinine 1.16 H, Est GFR (MDRD) Af Amer 61, Est GFR (MDRD) Non-Af 50 L, BUN/Creatinine Ratio 19.8, Glucose 114 H, Calcium 9.3, Troponin I 3.040 H* Rhythm: EKG: Normal sinus rhythm with nonspecific ST-T wave changes Assessment/Plan 1. Non-ST elevation myocardial infarction * She presents with chest discomfort and is noted to have a non-ST elevation myocardial infarction. She does have risk factors with significant tobacco use. Her lipid level is unknown at this particular time. * Recommendation will be to start aspirin * Load with clopidogrel or ticagrelor * Discussed cardiac catheterization within the next few hours. The risk benefits and alternatives have been explained to her she understands and agrees to proceed. * This was also discussed with the ER physicians. * * Thank you for allowing me to participate in the care of your patient. Please don't hesitate to call if any issues arise
[2018-04-18] MEDS: TICAGRELOR 90 MG TABLET 180 MG PO (09:37)
--- NOTE | 2018-04-18 11:31 | CL.D_ITS ---
Patient Name: MARI EDEN Study Date: 04/18/2018 Performing: Eladio Castillo MD Ht: 64 inches 162.56 cm : 1955 Wt: 134 lbs 60.78 kg Age: 62 Gender: female BSA: 1.65 PROCEDURE(S) PERFORMED IB64-YKL/COR/LV CLINICAL PROFILE AND INDICATIONS Indications: ACS <= 24 hrs Heart Failure: None Stress/Imaging Stress/Image Study Performed: No CONCLUSIONS Normal coronary arteries Cardiomyopathy: Takotsubo RECOMMENDATIONS Medical therapy DESCRIPTION OF PROCEDURE The patient arrived to the procedure lab. The risks and benefits of the procedure as well as a full d escription of our services here and current unavailability of surgical backup were fully explained to the patient and/or their significant other prior to the catheterization. The Timeout was completed, verifying the correct patient and procedure. The patient's procedural site was prepped and draped in the usual fashion. Local anesthetic was given subcutaneously to right radial region with Lidocaine 2% . Using a modified Seldinger technique, arterial access was obtained via the right radial artery, a 6 Fr sheath was inserted. Left Coronary Artery selective angiography was performed in multiple views u sing a 5 Fr. 4.0 Grace catheter. Right Coronary Artery selective angiography was then performed in mu ltiple views using a 5 Fr. 3DRC (Jet) catheter. Left Ventriculography was performed in ARCEO proje ction using a 5 Fr. Pigtail catheter. LV to AO pullback pressures were then recorded.The arterial sheath was pulled and a TR Band was applied for hemostasis w/ 11ml air CORONARY ANGIOGRAPHY DOMINANCE: Right Dominant LEFT HEART ASSESSMENT Left Ventricular Ejection Fraction: by LV Gram 45 % Apical Akinesis Consistent with Takotsubo cardiomyopathy. LVEDP: 5 mmHg LEFT MAIN: Angiographically normal LEFT ANTERIOR DECENDING ARTERY: Angiographically normal CIRCUMFLEX ARTERY: Angiographically normal RIGHT CORONARY ARTERY: Angiographically normal COMPLICATIONS No Complications PROCEDURE MEDICATIONS Fentanyl 50 mcg IV Versed 1 mg IV Versed 1 mg IV Oxygen: 2 L/min via nasal cannula Benadryl 25 mg IV @ 04/18/2018 10:31:49 Heparin diluted in 23cc Heparinized saline. Patient given 10cc IA of this solution. 04/18/2018 11:02: 18 Solu-medrol 125 mg IV 04/18/2018 10:31:49 Verapamil 2.5mg, Ntg 100mcgs, 2000 units of Heparin diluted in 23cc Heparinized saline. Patient give n 10cc IA of this solution. 04/18/2018 11:02:18 SUMMARY OF HEMODYNAMIC DATA Time AIR REST ECG 10:33:05 AO 102/60 (74) SA 11:04:56 LV 118/-2, 5 11:11:19 LV 124/0, 7 11:11:25 LV 115/2, 21 11:13:02 LVp 117/0, 16 11:13:07 AOp 103/60 (78) 11:13:13 11:29:12 Signed By Eladio Castillo MD On 04/18/2018 11:30:04 Eladio Castillo MD
--- NOTE | 2018-04-18 11:50 | EKG12_ITS ---
Test Reason : Blood Pressure : / mmHG Vent. Rate : 068 BPM Atrial Rate : 068 BPM P-R Int : 120 ms QRS Dur : 074 ms QT Int : 442 ms P-R-T Axes : 050 -36 059 degrees QTc Int : 469 ms Normal sinus rhythm Left axis deviation Nonspecific T wave abnormality Abnormal ECG Confirmed by AMBROCIO SHEIKH, WIN ([id number]), society editor WESLEY MARIANO ([id number]) on 04/21/2018 4:12:53 PM Referred By: Eladio Castillo Confirmed By:WIN ALBRECHT MD
--- NOTE | 2018-04-18 12:38 | PCM.HP.STD ---
Problem List (1) Atypical chest pain Status: Acute (2) Non-STEMI (non-ST elevated myocardial infarction) Status: Acute History of Present Illness Date of Admission: 04/18/18 Chief Complaint: Atypical chest pain since yesterday The patient is a 62 year old F with no significant past medical history came to ED after she had chest pressure since yesterday evening while going up and down the stairs. She denies associated shortness of breath but was mildly diaphoretic, nauseated. Chest pressure radiated to left jaw. In ED, EKG showed nonspecific ST-T changes but troponin was elevated. Troponin 3.04 and 2.24. Continuous Process Machine Operator was called from the ER and patient was taken to Care Mgr directly. Past Medical History Allergies Iodinated Contrast- Oral and IV Dye [Iodinated Contrast Media - IV Dye] Adverse Reaction (Verified 04/18/18 07:06) Vomiting Home Medications: Ambulatory Orders Medication Instructions Recorded Sertraline HCl [Zoloft] 100 mg PO BID 02/09/16 busPIRone [Buspar] 10 mg PO BID 05/30/17 Calcium Carbonate/Vitamin D3 1 each PO DAILY 04/18/18 [Calcium 600 + Vit D Tablet] Folic Acid 0.4 mg PO DAILY@0800 04/18/18 Mv-Mn/Folic Acid/Calcium/Vit K 1 each PO DAILY 04/18/18 [Women's 50 Plus Daily Formula] Sulfamethoxazole/Trimethoprim 1 tab PO BID 04/18/18 [Bactrim Ds Tablet] Lives: Spouse/ Significant Other Smoking Status: Current every day smoker Alcohol: Heavy Drugs: None - *Family History Maternal History Items: Heart Disease - In 50s. Coronary artery disease Paternal History Items: Heart Disease Review of Systems Constitutional: Denies: Chills, Fever, Weight Change HEENT: Denies: Head Aches, Sinus Congestion, Sinus Drainage Cardiovascular: Reports: Chest Pressure, Chest Tightness, Edema - Sometimes. Denies: Palpitations Respiratory: Denies: Cough, Shortness of breath at rest, Sputum production Gastrointestinal: Denies: Abdominal Pain, Nausea, Vomiting Genitourinary: Denies: Dysuria Musculoskeletal: Denies: Joint Pain, Joint Tenderness Skin: Denies: Rash, Wounds Neurological: Denies: Numbness, Tingling, Focal weakness Psychiatric: Denies: Anxiety, Depression, Homicidal Ideations, Suicidal Ideations Hematologic/ Lymphatic: Denies: Easy Bruising, Easy Bleeding VTE Information - Inpt Only VTE Present on Admission: No VTE Pharm Prophylaxis ordered?: Yes Patient Problems: Active and Suspected Problems Atypical chest pain (Acute) Non-STEMI (non-ST elevated myocardial infarction) (Acute) - Physical Exam General: Alert, Oriented x3, Cooperative HEENT: Atraumatic, PERRLA, EOMI, Normocephalic Neck: Supple, No JVD, Negative Carotid Bruits Lungs: Clear to auscultation, Normal air movement, No rhonchi, No wheeze, No rales Cardiovascular: Regular rate, Regular Rhythm, Normal S1, Normal S2, No murmurs Abdomen: Bowel Sounds Present, Soft, Non Tender, Non-Distended Extremities: No edema, Capillary Refill Less than 3 Seconds Skin: No rashes, No breakdown Musculoskeletal: No Tenderness to Palpation of Joints or Extremities, Arthritic Changes Lymphatic: No Cervical, Supraclavicular, or Inguinal Adenopathy Neurological: Cranial nerves II-XII grossly intact, Deep Tendon Reflexes 2+/4 and Symmetrical, Neuro grossly intact, Motor Exam 5/5 strength throughout Psych/Mental Status: Normal Affect, Appropriate Vital Signs Temp Pulse Resp BP Pulse Ox 98 F 62 15 121/73 H 98 04/18/18 12:24 04/18/18 12:24 04/18/18 12:24 04/18/18 12:24 04/18/18 12:24 Oxygen Flow Rate (L/min) 2 Oxygen Delivery Method Room Air Weight: 143 lb 1.28 oz Body Mass Index (BMI) 24.5 Laboratory Tests Past 24 Hrs 04/18/18 04/18/18 04/18/18 07:00 07:00 07:00 WBC 4.2 L RBC 4.83 Hgb 15.5 H Hct 47.8 H MCV 99.0 MCH 32.1 H MCHC 32.4 RDW 12.8 RDW Differential 46.5 H Plt Count 240 MPV 12.5 H Immature Gran % (Auto) 0.000 Neut % (Auto) 14.8 L Lymph % (Auto) 62.2 H [place] % (Auto) 17.8 H Eos % (Auto) 4.0 Baso % (Auto) 1.2 H Absolute Neuts (auto) 0.6 L Absolute Lymphs (auto) 2.62 Total Counted Not Reportable Differential Comment COMMENT Sodium 138 Potassium 3.8 Chloride 103 Carbon Dioxide 27.0 Anion Gap 8 BUN 23 H Creatinine 1.16 H Estim Creat Clear Calc 43.42 Est GFR (MDRD) Af Amer 61 Est GFR (MDRD) Non-Af 50 L BUN/Creatinine Ratio 19.8 Glucose 114 H Calcium 9.3 Troponin I 3.040 H* Triglycerides Pending Cholesterol Pending LDL Cholesterol Pending VLDL Cholesterol Pending HDL Cholesterol Pending TSH Pending Assessment/Plan All Active Problems Atypical chest pain (Acute) Non-STEMI (non-ST elevated myocardial infarction) (Acute) The patient is a 62 year old F with no significant past medical history came to ED after she had chest pressure since yesterday evening while going up and down the stairs. She denies associated shortness of breath but was mildly diaphoretic, nauseated. Chest pressure radiated to left jaw. In ED, EKG showed nonspecific ST-T changes but troponin was elevated. Troponin 3.04 and 2.24. Continuous Process Machine Operator was called from the ER and patient was taken to Care Mgr directly. 1. Non-STEMI: Patient underwent cardiac cath was found to have Takotsubo cardiomyopathy. Normal coronary arteries. EF 45%. Apical akinesis. Fasting profile shows total cholesterol 246, LDL 130, HDL 86, VLDL 30. TSH 2.57. On aspirin, low-dose lisinopril and metoprolol 25 twice daily. 2. Nicotine use, cigarette smoking: On nicotine patch. Smoking cessation advised. 3. DVT prophylaxis: On heparin 500 subcutaneous twice daily Diagnosis, management plan and follow-up discussed with the patient and her present in the room This note was generated with [employer] dictation software. Every effort was made to ensure accuracy, however computerized bee breeder mistakes may persist. Code Visit Inpatient E&M: 17483 Init Hosp L3
[2018-04-18 12:51] LABS: Cholesterol 246 mg/dL (200); High Density Lipoprotein 86 mg/dL; Thyroid Stim Hormone (TSH) 2.57 uIU/mL (0.358-3.74); Triglycerides 149 mg/dL; Very Low Density Lipoprotein 30 mg/dL (5-40)
[2018-04-18 16:51] LABS: Bacteria 0 SEEN /hpf (None Seen); Mucous, Urine 0 SEEN /hpf (<or=2+); White Blood Cells 0 SEEN /hpf (0-5)
[2018-04-18 16:52] LABS: Color, Urine Yellow (Yellow); Glucose, Dipstick 250 mg/dl (Normal); Ketone-Dipstick 5 mg/dl (Negative); Leukocyte Esterase-Dipstick Negative /ul (Negative); Nitrite-Dipstick Negative (Negative); Occult Blood-Urine 10 /ul (Negative); Protein-Dipstick Negative (Negative); Specific Gravity, Urine 1.015 (1.002-1.030); Urine Bilirubin Dipstick Negative (Negative); Urine Clarity Clear (Clear); Urine Urobilinogen Normal (Normal); Urine pH 6.5 (5.0 - 8.0)
[2018-04-18 16:59] LABS: Squamous Epithelial Cells - UA 0-5 SEEN /hpf (5-10)
[2018-04-18 17:00] LABS: Red Blood Cells-Urine 0-5 SEEN /hpf (0-5)
[2018-04-18 17:01] LABS: Transitional Epithelial - Ur 0-5 SEEN /hpf (0-5)
[2018-04-18] MEDS: Heparin Injection (Vial) 5,000 UNIT/ML VIAL 5000 UNIT SC (21:03)
[2018-04-18] MEDS: Metoprolol Tartrate 25 MG Tablet PO (21:07)
[2018-04-19 03:07] VITALS: PULSE 65
[2018-04-19 04:00] VITALS: BP 122/76; PULSE 62; RESP 16; TEMP 36.6; O2SAT 95
[2018-04-19 07:16] VITALS: PULSE 61
--- NOTE | 2018-04-19 07:30 | PCM.PN.CARD ---
Subjectve: Patient seen and evaluated Objective: Vital Signs Temp Pulse Resp BP Pulse Ox 97.9 F 62 16 122/76 H 95 04/19/18 04:00 04/19/18 04:00 04/19/18 04:00 04/19/18 04:00 04/19/18 04:00 Oxygen Flow Rate (L/min) 2 Oxygen Delivery Method Room Air Weight: 143 lb 1.28 oz Body Mass Index (BMI) 24.5 Intake and Output for Last 24 Hours 04/17/18 04/18/18 04/19/18 23:59 23:59 23:59 Intake Total 1083 / 1083 60 / 60 Balance 1083 / 1083 60 / 60 General: Awake, Alert, Oriented x 3 HEENT: PERRL, EOMI, Sclera Non Icteric Neck: Supple, Good ROM, No Lymph Node Enlargement Lungs: Clear to auscultation Cardiovascular: Regular Rhythm, Normal S1, Normal S2, No Murmurs, No Rubs, No Gallops Vascular: No Carotid Bruits, Normal Femoral Pulses, Normal Radial Pulses, Normal Dorsalis Pedal Pulse, Normal Posterior Tibial Pulses Abdomen: Bowel Sounds Present, Soft, Non Tender, No HSM, No Organomegaly Extremities: No Cyanosis, No Clubbing, No edema Neurological: No Focal Motor or Sensory Deficit 04/18/18 07:00: WBC 4.2 L, RBC 4.83, Hgb 15.5 H, Hct 47.8 H, MCV 99.0, MCH 32.1 H, MCHC 32.4, RDW 12.8, RDW Differential 46.5 H, Plt Count 240, MPV 12.5 H, Immature Gran % (Auto) 0.000, Neut % (Auto) 14.8 L, Lymph % (Auto) 62.2 H, [place] % (Auto) 17.8 H, Eos % (Auto) 4.0, Baso % (Auto) 1.2 H, Absolute Neuts (auto) 0.6 L, Total Counted Not Reportable 04/18/18 07:00: Sodium 138, Potassium 3.8, Chloride 103, Carbon Dioxide 27.0, Anion Gap 8, BUN 23 H, Creatinine 1.16 H, Est GFR (MDRD) Af Amer 61, Est GFR (MDRD) Non-Af 50 L, BUN/Creatinine Ratio 19.8, Glucose 114 H, Calcium 9.3, Troponin I 3.040 H* 04/18/18 07:00: Triglycerides 149, Cholesterol 246 H, LDL Cholesterol 130, VLDL Cholesterol 30, HDL Cholesterol 86 04/18/18 13:05: Troponin I 2.240 H* 04/18/18 16:45: Urine Color Yellow, Urine Clarity Clear, Urine pH 6.5, Ur Specific [place] 1.015, Urine Protein Negative, Urine Glucose (UA) 250 H, Urine Ketones 5 H, Urine Occult Blood 10 H, Urine Nitrite Negative, Urine Bilirubin Negative, Urine Urobilinogen Normal, Ur Leukocyte Esterase Negative, Urine RBC 0-5 SEEN, Urine WBC 0 SEEN Rhythm: EKG: ECHO: Stress Test: Cardiac Cath: PCI: CT Surgery: Holter monitor: EPS: PPM: CXR: Chest CT Scan: Medical Necessity - Tobacco Use Smoking Status: Current every day smoker Assessment/Plan 1. Takutsobo cardiomyopathy She presents with chest discomfort and is noted to have a non-ST elevation myocardial infarction. She does have risk factors with significant tobacco use. Her lipid level is unknown at this particular time. She underwent a cardiac catheterization yesterday which demonstrated essentially normal coronary arteries with evidence of apical ballooning syndrome. No apparent precipitating stress factors noted other than some lingering concerns about the of her daughter. We will start beta-hany as well as BISI inhibitor Due to the concerns of the akinetic apex I would recommend Eliquis 2.5 mg twice a day until follow-up echo in 2 months or so. The above has been discussed with the patient's family Stable to be discharged later today Thank you for allowing me to participate in the care of your patient. Please don't hesitate to call if any issues arise
--- NOTE | 2018-04-19 07:32 | ECHOD_ITS ---
Reason For Study: S/P AK Procedure This was a 2D Doppler, Color Flow transthoracic echocardiogram. No IV access for Definity or Bubble Study. Exam performed portable in patient room. Left Ventricle Normal LV size. Left ventricular systolic function is lower limits of normal. The estimated ejection fraction is 50 %. No evidence for diastolic dysfunction. [place] : Akinetic. Right Ventricle Normal RV size. Normal systolic function. Atria Normal left atrium. Normal right atrium. Mitral Valve Mild diffuse mitral valve thickening. Mild (1+) eccentric mitral valve insufficiency. Tricuspid Valve Normal tricuspid valve. Mild (1+) tricuspid valve insufficiency. Pulmonary artery systolic pressure is 38 mmHg. Aortic Valve Normal aortic valve. Trisinus/trileaflet aortic valve. Pulmonic Valve Normal pulmonic valve. Great Vessels Normal aortic root. The pulmonary artery is normal size. Normal inferior vena cava. Pericardium/Pleural No pericardial effusion. MMode/2D Measurements & Calculations LVIDd: 4.0 cm IVSd: 1.2 cm Ao root diam: 3.2 cm LVIDs: 2.3 cm LVPWd: 1.2 cm LA dimension: 3.8 cm RVDd: 3.3 cm FS: 43.6 % LAV(MOD-bp): 56.0 ml LVAd ap4: 29.3 cm2 SV(MOD-sp4): 47.2 ml LAV(MOD-bp) Indexed: 34.0 ml/m2 EDV(MOD-sp4): 82.9 ml LAV(MOD-sp2): 54.5 ml EDV(sp4-el): 85.6 ml LAV(MOD-sp4): 54.6 ml LVAs ap4: 17.7 cm2 ESV(MOD-sp4): 35.7 ml ESV(sp4-el): 35.1 ml EF(MOD-sp4): 56.9 % EF(sp4-el): 59.0 % SV(sp4-el): 50.4 ml LA A4 area: 18.6 cm2 RA A4 area: 14.0 cm2 Time Measurements MV dec time: 0.19 sec Doppler Measurements & Calculations MV E max debby: 96.0 cm/sec MV V2 max: 111.3 cm/sec MV P1/2t max debby: 110.4 cm/sec MV A max debby: 73.3 cm/sec MV max P.0 mmHg MV P1/2t: 73.8 msec MV E/A: 1.3 MV V2 mean: 51.1 cm/sec MV mean P.3 mmHg MV dec slope: 438.3 cm/sec2 MV V2 VTI: 34.1 cm MVA(P1/2t): 3.0 cm2 Ao V2 max: 156.5 cm/sec LV V1 max: 107.8 cm/sec MR max debby: 510.8 cm/sec Ao max P.8 mmHg LV V1 max P.6 mmHg MR max P.4 mmHg Ao V2 mean: 106.3 cm/sec LV V1 mean P.6 mmHg MR mean debby: 391.7 cm/sec Ao mean P.1 mmHg LV V1 mean: 75.3 cm/sec MR mean P.8 mmHg Ao V2 VTI: 33.2 cm LV V1 VTI: 28.5 cm MR VTI: 180.9 cm PA V2 max: 71.0 cm/sec TR max debby: 291.3 cm/sec TR max P.0 mmHg Interpretation Summary Normal LV size. Left ventricular systolic function is lower limits of normal. The estimated ejection fraction is 50 %. No evidence for diastolic dysfunction. [place] : Akinetic. Mild (1+) tricuspid valve insufficiency. Above consistent with takutsobo cardiomyopathy Ordering Physician: Eladio Castillo Referring Physician: Eladio Castillo Performed By: Refugio Quiroz RCS
--- NOTE | 2018-04-19 07:33 | PN.CARD_ITS ---
Subjectve: Patient seen and evaluated Objective: Vital Signs Temp Pulse Resp BP Pulse Ox 97.9 F 62 16 122/76 H 95 04/19/18 04:00 04/19/18 04:00 04/19/18 04:00 04/19/18 04:00 04/19/18 04:00 Oxygen Flow Rate (L/min) 2 Oxygen Delivery Method Room Air Weight: 143 lb 1.28 oz Body Mass Index (BMI) 24.5 Intake and Output for Last 24 Hours 04/17/18 04/18/18 04/19/18 23:59 23:59 23:59 Intake Total 1083 / 1083 60 / 60 Balance 1083 / 1083 60 / 60 General: Awake, Alert, Oriented x 3 HEENT: PERRL, EOMI, Sclera Non Icteric Neck: Supple, Good ROM, No Lymph Node Enlargement Lungs: Clear to auscultation Cardiovascular: Regular Rhythm, Normal S1, Normal S2, No Murmurs, No Rubs, No Gallops Vascular: No Carotid Bruits, Normal Femoral Pulses, Normal Radial Pulses, Normal Dorsalis Pedal Pulse, Normal Posterior Tibial Pulses Abdomen: Bowel Sounds Present, Soft, Non Tender, No HSM, No Organomegaly Extremities: No Cyanosis, No Clubbing, No edema Neurological: No Focal Motor or Sensory Deficit 04/18/18 07:00: WBC 4.2 L, RBC 4.83, Hgb 15.5 H, Hct 47.8 H, MCV 99.0, MCH 32.1 H, MCHC 32.4, RDW 12.8, RDW Differential 46.5 H, Plt Count 240, MPV 12.5 H, Immature Gran % (Auto) 0.000, Neut % (Auto) 14.8 L, Lymph % (Auto) 62.2 H, [place] % (Auto) 17.8 H, Eos % (Auto) 4.0, Baso % (Auto) 1.2 H, Absolute Neuts (auto) 0.6 L, Total Counted Not Reportable 04/18/18 07:00: Sodium 138, Potassium 3.8, Chloride 103, Carbon Dioxide 27.0, Anion Gap 8, BUN 23 H, Creatinine 1.16 H, Est GFR (MDRD) Af Amer 61, Est GFR (MDRD) Non-Af 50 L, BUN/Creatinine Ratio 19.8, Glucose 114 H, Calcium 9.3, Troponin I 3.040 H* 04/18/18 07:00: Triglycerides 149, Cholesterol 246 H, LDL Cholesterol 130, VLDL Cholesterol 30, HDL Cholesterol 86 04/18/18 13:05: Troponin I 2.240 H* 04/18/18 16:45: Urine Color Yellow, Urine Clarity Clear, Urine pH 6.5, Ur Specific [place] 1.015, Urine Protein Negative, Urine Glucose (UA) 250 H, Urine Ketones 5 H, Urine Occult Blood 10 H, Urine Nitrite Negative, Urine Bilirubin Negative, Urine Urobilinogen Normal, Ur Leukocyte Esterase Negative, Urine RBC 0-5 SEEN, Urine WBC 0 SEEN Rhythm: EKG: ECHO: Stress Test: Cardiac Cath: PCI: CT Surgery: Holter monitor: EPS: PPM: CXR: Chest CT Scan: Medical Necessity - Tobacco Use Smoking Status: Current every day smoker Assessment/Plan 1. Takutsobo cardiomyopathy * She presents with chest discomfort and is noted to have a non-ST elevation myocardial infarction. She does have risk factors with significant tobacco use. Her lipid level is unknown at this particular time. * She underwent a cardiac catheterization yesterday which demonstrated essentially normal coronary arteries with evidence of apical ballooning syndrome. No apparent precipitating stress factors noted other than some lingering concerns about the of her daughter. We will start beta-hany as well as BISI inhibitor Due to the concerns of the akinetic apex I would recommend Eliquis 2.5 mg twice a day until follow-up echo in 2 months or so. The above has been discussed with the patient's family Stable to be discharged later today * Thank you for allowing me to participate in the care of your patient. Please don't hesitate to call if any issues arise
--- NOTE | 2018-04-19 07:41 | PCM.DC ---
- Discharge Diagnoses Current Active Problems: Current Active and Chronic Problems Atypical chest pain (Acute) Non-STEMI (non-ST elevated myocardial infarction) (Acute) You will use the following diet at home:: Cardiac Discharge Activity: Return to Normal Activity, May Not Drive - for 1 week Weight Bearing Status: Weight bearing as tolerated Call your doctor if you observe: Fever of 101 or Higher, Inability to urinate, Shortness of breath, Dizziness, Swelling in the ankles, Chest pain, Increased palpitations (irregular heartbeat), Calf discomfort Additional Instructions: Advised follow-up 2D echo in 2 months, to be ordered by PCP/seating upholsterer Allergies/Adverse Reactions: Allergies Iodinated Contrast- Oral and IV Dye [Iodinated Contrast Media - IV Dye] Adverse Reaction (Verified 04/18/18 07:06) Vomiting Medications to take at Discharge Sertraline HCl [Zoloft] 100 mg PO BID 02/09/16 busPIRone [Buspar] 10 mg PO BID 05/30/17 Calcium Carbonate/Vitamin D3 [Calcium 600 + Vit D Tablet] 1 each PO DAILY 04/18/18 Folic Acid 0.4 mg PO DAILY@0800 04/18/18 Mv-Mn/Folic Acid/Calcium/Vit K [Women's 50 Plus Daily Formula] 1 each PO DAILY 04/18/18 Apixaban [Eliquis] 2.5 mg PO BID #60 tablet 04/19/18 Lisinopril [Zestril] 2.5 mg PO DAILY #30 tablet 04/19/18 Metoprolol Tartrate [Lopressor (beta hany)] 25 mg PO BID #60 tablet 04/19/18 The following prescriptions were given: Lisinopril [Zestril] 2.5 mg PO DAILY #30 tablet Apixaban [Eliquis] 2.5 mg PO BID #60 tablet Metoprolol Tartrate [Lopressor (beta hany)] 25 mg PO BID #60 tablet Primary Care Physician: Modesto Jeffries MD [Primary Care Provider] - Please follow up with your Primary Care Physician in: in 1-2 week Test Results: Test results from this visit will be discussed in further detail at your follow-up appointment, if applicable. Please Follow Up With: Eladio Castillo MD When: in 4-6 weeks
--- NOTE | 2018-04-19 07:42 | DS.PCM_ITS ---
Discharge Date and Diagnosis Date of Admission: 04/18/18 Date of Discharge: 04/19/18 - Primary Discharge Diagnosis Active and Suspected Problems Atypical chest pain (Acute) Non-STEMI (non-ST elevated myocardial infarction) (Acute) Hospital Course and Treatment Imaging Results: 04/19/18 07:32 Echo Complete [ECHO] Routine Summary of Care Provided: [] The patient is a 62 year old F with no significant past medical history was admitted to PCU after she had chest pressure since yesterday evening while going up and down the stairs. She denies associated shortness of breath but was mildly diaphoretic, nauseated. Chest pressure radiated to left jaw. In ED, EKG showed nonspecific ST-T changes but troponin was elevated. Troponin 3.04 and 2.24. Senior Data Mining Analyst was called from the ER and patient was taken to Project Management Specialist directly. 1. Non-STEMI: Patient underwent cardiac cath was found to have Takotsubo cardiomyopathy/apical ballooning syndrome. Normal coronary arteries. EF 45%. Apical akinesis. Fasting profile shows total cholesterol 246, LDL 130, HDL 86, VLDL 30. TSH 2.57. On aspirin, low-dose lisinopril and metoprolol 25 twice daily. Patient also started on low-dose Eliquis 2.5 mg twice daily for apical akinesis, for the prophylaxis for ventricular thrombosis. Repeat echo after 2-month. Follow with Dr. varela. 2. Nicotine use, cigarette smoking: On nicotine patch. Smoking cessation advised. 3. DVT prophylaxis: On heparin 500 subcutaneous twice daily Discharge medication reconciliation done. Discharge follow-up instructions completed. Discharge process discussed with the patient and her near the bedside. Prescription sent to the pharmacy. Discharge medicines discussed with the patient. Total time spent, exact 35 minutes on discharge meds reconciliation, examination, review of imaging and blood test and discussion with the patient on follow-up instructions. This note was generated with [employer] dictation software. Every effort was made to ensure accuracy, however computerized home health rn mistakes may persist. All the patient was admitted with non-STEMI as inpatient she had sooner recovery than expected and discharged. Subjective: Seen and examined. Patient does not have chest pressure/shortness of breath. Comfortable. Right radial cardiac cath access site; no hematoma - Physical Exam General: Alert, Oriented x3, Cooperative HEENT: Atraumatic, PERRLA, EOMI, Normocephalic Neck: Supple, No JVD, Negative Carotid Bruits Lungs: Clear to auscultation, Normal air movement, No rhonchi, No wheeze, No rales Cardiovascular: Regular rate, Regular Rhythm, Normal S1, Normal S2, No murmurs Abdomen: Bowel Sounds Present, Soft, Non Tender, Non-Distended Extremities: No edema, Capillary Refill Less than 3 Seconds Skin: No rashes, No breakdown Musculoskeletal: No Tenderness to Palpation of Joints or Extremities Neurological: Cranial nerves II-XII grossly intact Psych/Mental Status: Normal Affect, Appropriate Vital Signs Temp Pulse Resp BP Pulse Ox 97.9 F 62 16 122/76 H 95 04/19/18 04:00 04/19/18 04:00 04/19/18 04:00 04/19/18 04:00 04/19/18 04:00 Oxygen Flow Rate (L/min) 2 Oxygen Delivery Method Room Air Weight: 143 lb 1.28 oz Body Mass Index (BMI) 24.5 Intake and Output for Last 24 Hours 04/17/18 04/18/18 04/19/18 23:59 23:59 23:59 Intake Total 1083 / 1083 60 / 60 Balance 1083 / 1083 60 / 60 Laboratory Tests Past 24 Hrs 04/18/18 04/18/18 04/18/18 07:00 07:00 07:00 WBC 4.2 L RBC 4.83 Hgb 15.5 H Hct 47.8 H MCV 99.0 MCH 32.1 H MCHC 32.4 RDW 12.8 RDW Differential 46.5 H Plt Count 240 MPV 12.5 H Immature Gran % (Auto) 0.000 Neut % (Auto) 14.8 L Lymph % (Auto) 62.2 H [place] % (Auto) 17.8 H Eos % (Auto) 4.0 Baso % (Auto) 1.2 H Absolute Neuts (auto) 0.6 L Absolute Lymphs (auto) 2.62 Total Counted Not Reportable Differential Comment COMMENT Sodium 138 Potassium 3.8 Chloride 103 Carbon Dioxide 27.0 Anion Gap 8 BUN 23 H Creatinine 1.16 H Estim Creat Clear Calc 43.42 Est GFR (MDRD) Af Amer 61 Est GFR (MDRD) Non-Af 50 L BUN/Creatinine Ratio 19.8 Glucose 114 H Calcium 9.3 Troponin I 3.040 H* Triglycerides 149 Cholesterol 246 H LDL Cholesterol 130 VLDL Cholesterol 30 HDL Cholesterol 86 TSH 2.57 Urine Color Urine Clarity Urine pH Ur Specific [place] Urine Protein Urine Glucose (UA) Urine Ketones Urine Occult Blood Urine Nitrite Urine Bilirubin Urine Urobilinogen Ur Leukocyte Esterase Urine RBC Urine WBC Ur Squamous Epith Cells Ur Transition Epith Cell Urine Bacteria Urine Mucus 04/18/18 04/18/18 13:05 16:45 WBC RBC Hgb Hct MCV MCH MCHC RDW RDW Differential Plt Count MPV Immature Gran % (Auto) Neut % (Auto) Lymph % (Auto) [place] % (Auto) Eos % (Auto) Baso % (Auto) Absolute Neuts (auto) Absolute Lymphs (auto) Total Counted Differential Comment Sodium Potassium Chloride Carbon Dioxide Anion Gap BUN Creatinine Estim Creat Clear Calc Est GFR (MDRD) Af Amer Est GFR (MDRD) Non-Af BUN/Creatinine Ratio Glucose Calcium Troponin I 2.240 H* Triglycerides Cholesterol LDL Cholesterol VLDL Cholesterol HDL Cholesterol TSH Urine Color Yellow Urine Clarity Clear Urine pH 6.5 Ur Specific [place] 1.015 Urine Protein Negative Urine Glucose (UA) 250 H Urine Ketones 5 H Urine Occult Blood 10 H Urine Nitrite Negative Urine Bilirubin Negative Urine Urobilinogen Normal Ur Leukocyte Esterase Negative Urine RBC 0-5 SEEN Urine WBC 0 SEEN Ur Squamous Epith Cells 0-5 SEEN Ur Transition Epith Cell 0-5 SEEN Urine Bacteria 0 SEEN Urine Mucus 0 SEEN Discharge Activity: Return to Normal Activity, May Not Drive - for 1 week Home Medications: Medications to take at Discharge Sertraline HCl [Zoloft] 100 mg PO BID 02/09/16 busPIRone [Buspar] 10 mg PO BID 05/30/17 Calcium Carbonate/Vitamin D3 [Calcium 600 + Vit D Tablet] 1 each PO DAILY 04/18/18 Folic Acid 0.4 mg PO DAILY@0800 04/18/18 Mv-Mn/Folic Acid/Calcium/Vit K [Women's 50 Plus Daily Formula] 1 each PO DAILY 04/18/18 Apixaban [Eliquis] 2.5 mg PO BID #60 tablet 04/19/18 Lisinopril [Zestril] 2.5 mg PO DAILY #30 tablet 04/19/18 Metoprolol Tartrate [Lopressor (beta kaylin)] 25 mg PO BID #60 tablet 04/19/18 Following Prescrptions Were Given to Patient: Lisinopril [Zestril] 2.5 mg PO DAILY #30 tablet Apixaban [Eliquis] 2.5 mg PO BID #60 tablet Metoprolol Tartrate [Lopressor (beta kaylin)] 25 mg PO BID #60 tablet Primary Care Physician: Modesto Jeffries MD [Primary Care Provider] - Please follow up with your Primary Care Physician in: in 1-2 week Please Follow Up With: Eladio Varela MD When: in 4-6 weeks Medical Necessity - Tobacco Use Smoking Status: Current every day smoker Meaningful Use Info Meaningful Use Diagnoses (Choose all that apply): AMI - AMI Aspirin given w/in 24hrs of arrival?: Yes ASA at discharge?: Yes Statins at discharge?: No Reason statins not ordered:: Drug Interaction - FLP wnl. Not indicated. Discussed with air traffic coordinator [place]/ARB at discharge?: Yes Beta [place]lin at discharge?: Yes Done w/ Acute GA measure.: Yes Code Visit Inpatient E&M: 12083 Disch Hosp
[2018-04-19 08:09] VITALS: BP 116/73; PULSE 60; RESP 15; TEMP 36.9; O2SAT 97
--- NOTE | 2018-04-19 09:00 | CASEMGMT ---
EMMETT POLO assessment: Face to Face with patient for initial transition planning/care coordination assessment. RN MELANI introduced self and role at [facility], pt voices understanding and consents to assessment at this time. Pt is sitting up in bed in no distress at this time. Pt is A/O x4 at this time and answers all questions appropriately at this time. Pt's is at bedside during assessment. Care providers, pharmacy, and demographics verified at this time. PCP: Nesha Specialists: BLAINE Adams Preferred Pharmacy: [facility] Dk Insurance: [employer] Prescription Benefit: [employer]na Living Will/HPOA: Pt states does not have LW/HPOA and declines info at this time. LNOK: Isaías Maximino, Living Arrangements: Pt states lives with in 1 story home and states no concerns at home at this time. Pt states is independent with ADL's. Transportation: Pt states drives self and states no transportation concerns at this time. DME/HHC: Pt states does not currently have any DME and states no need for any at this time. Pt states no hx of HHC or SNF in the past. Pt states no concerns with going home at time of discharge. 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 Pt states smokes a pack/day and drinks several vodka drinks daily. Pt declines smoking cessation and declines to speak with SW for ETOH abuse at this time. Pt state no further questions/concerns/needs at this time. Pt will be sent home on Eliquis and med e-scribed to [facility] previously. Call to [facility] at this time and per tech, med is covered but co-pay is $132.86. Tech states that [employer] does prefer 90day scripts. This EMMETT POLO informed pt of co-pay and provided with with [email or web address] $10 co-pay card with instructions at this time. Pt/ voice understanding. Pt/ also updated on [employer] and 90 day script preference for f/u appt with Dr. Castillo, voice understanding. CM to follow for any further discharge planning/needs. Advised pt/ to ask for CM if any further questions/concerns/needs arise, voices understanding. Plan: [place] EMMTET POLO
[2018-04-19] MEDS: Lisinopril 2.5 MG Tablet PO (10:13)
[2018-04-19] MEDS: APIXABAN 2.5 MG TABLET PO (10:14)
[2018-04-19 10:15] VITALS: PULSE 60
[2018-04-19] MEDS: Metoprolol Tartrate 25 MG Tablet PO (10:15)
--- NOTE | 2018-04-19 10:18 | PHA.DC.MC ---
Pharmacy Service has performed discharge medication reconciliation and counseling for this patient. The patient's discharge medication list was reviewed for discrepancies and discrepancies were resolved. The patient was counseled on the following discharge medications and changes in medications for homegoing were reviewed. Apixaban [Eliquis] 2.5 mg PO BID #60 tablet 04/19/18 Lisinopril [Zestril] 2.5 mg PO DAILY #30 tablet 04/19/18 Metoprolol Tartrate [Lopressor (beta hany)] 25 mg PO BID #60 tablet 04/19/18 The Reason for Use, instructions for use, and potential side effects were reviewed for all new medications. The patient's questions regarding all of their medications were answered. The patient demonstrated some understanding but would benefit from further education and reinforcement. Home Medications Sertraline HCl [Zoloft] 100 mg PO BID 02/09/16 busPIRone [Buspar] 10 mg PO BID 05/30/17 Calcium Carbonate/Vitamin D3 [Calcium 600 + Vit D Tablet] 1 each PO DAILY 04/18/18 Folic Acid 0.4 mg PO DAILY@0800 04/18/18 Mv-Mn/Folic Acid/Calcium/Vit K [Women's 50 Plus Daily Formula] 1 each PO DAILY 04/18/18 Apixaban [Eliquis] 2.5 mg PO BID #60 tablet 04/19/18 Lisinopril [Zestril] 2.5 mg PO DAILY #30 tablet 04/19/18 Metoprolol Tartrate [Lopressor (beta hany)] 25 mg PO BID #60 tablet 04/19/18
== END 2018-04-19 10:32 | disposition home or self-care (01) | DRG 281 ==
LOC: ED 10:09 → PCU 12:01
PROVIDERS: Admitting Provider Internal Medicine; Emergency Provider Emergency Medicine; Family Provider Family Medicine; PCP Family Medicine; Referring Provider Internal Medicine Cardiovascular Disease; Visit Provider Internal Medicine
DX: I21.4 Non-ST elevation (NSTEMI) myocardial infarction (principal); I51.81 Takotsubo syndrome; F17.210 Nicotine dependence, cigarettes, uncomplicated
CPT/HCPCS: 36415; 71045; 80048; 80061; 81001; 84443; 84484; 85025; 87086; 93005; 93306; 93458; 99152; 99153; 99284; J7030; Q9967; A4216; C1769; C1894

== ENCOUNTER 2018-04-25 09:27 | Emergency (ER) | payer OTHER, SELFPAY ==
[2018-04-18 12:04] VITALS: BMI 24.5
[2018-04-25 09:29] VITALS: BP 117/68; PULSE 74; RESP 14; TEMP 35.9; O2SAT 99; BMI 24.2
--- NOTE | 2018-04-25 09:44 | ED.DCSUM_ITS ---
- ER Visit Summary Date of Service: 04/25/18 Chief Complaint: Small allergic reaction History of Present Illness: The patient is a 62 F, heart rate 118 who thinks she may have an allergic reaction. She was started on lisinopril, Eliquis and metoprolol 1 week ago. She had a heart catheterization done by Dr. Castillo at that time. She states that 3 days ago she developed a rash on her arms and trunk. She feels like her face is swollen and her skin is burning. No fevers. No trouble breathing. She took nothing for this at home. She has no history of this in the past. Physical Examination: Vital signs reviewed. HEENT exam reveals mild swelling around the eyes. She has no oral lesions. No tongue swelling. Uvula is midline without swelling. Heart is regular rate and rhythm. Lungs are clear bilaterally. Abdomen soft and nontender. There is a mild rash of the right arm. Her neurologic exam is normal. Test Results: None performed Emergency Department Course and Treatment: It is definitely possible that the patient has allergic reaction to 1 of these medications. However, I do not feel it is prudent that she stop them at this point. I will treat her with short course of steroids. She will follow-up with Dr. Castillo if her symptoms persist. Treatment Plan: [] Disposition: Discharge Impression: Allergic reaction medication This note was generated with [employer] dictation software. It may contain incorrect words, spelling, and punctuation that were not noted in review of the chart prior to signing ED Disposition - Plan for ED Patient: Chief Complaint: Allergic Reaction Referrals: Modesto Jeffries MD [Primary Care Provider] -
--- NOTE | 2018-04-25 09:44 | ED.DEP ---
ED Disposition - Plan for ED Patient: Disposition: Home or Assisted Living Chief Complaint: Allergic Reaction Instructions: ED Drug React Allergic Prescriptions: Prednisone [Deltasone] 40 mg PO DAILY #10 tab Referrals: Modesto Jeffries MD [Primary Care Provider] -
--- NOTE | 2018-04-25 09:54 | NURSING ---
PCU ACUTE HYPOXIC RESP FAILURE PAINTSIL
--- OUTSIDE RECORDS SUMMARY | 2018-06-27 19:49 | XMS RPT_ITS ---
:1955 Author Organization [employer] Address [address] [place] [address] Phone Care Team Providers Name Role Phone Shelia SHEIKH, Iglesia Lala Unavailable Reason for Visit Reason For Visit Description Start Date Follow-up by complaint Preliminary reason for visit data, not yet signed by the author as of right shoulder pain Preliminary reason for visit data, not yet signed by the author as of Chief Complaint Chief Complaint Description Start Date right shoulder pain Preliminary chief complaint data, not yet signed by the author as of Instructions Instruction Description Start Date CompletedPlease follow-up with Primary Care Physician or Jewel Waxer for treatment or adjustment of medication regarding elevated blood pressure. Plan of Care Type Date Detail Appointment 03:30 PM Iglesia Bass MD, [address] [facility], [address], [place], [address], Patient education \cps-sql1\CPS_PtEducation\htn. pdf Medications Medication Instructions Start Stop Generic Name NDC Provider Date Date BUSPIRONE HCL 10mg twice a day / BUSPIRONE HCL 34397048585 Iglesia Lala TABS 26 TABS Shelia SHEIKH ZOLOFT 100 MG One daily / SERTRALINE 22487086915 Iglesia Lala TABS 30 HCL Shelia SHEIKH MULTIVITAL MULTIPLE [id number] Amanda Kelly TABS 30 VITAMINS-MINE PERMIT COORDINATOR RALS CALCIUM TABS / CALCIUM TABS [id number] Amanda Kelly 30 PERMIT COORDINATOR Conditions or Problems Problem Name Problem Onset Status Entry Provider Comment Standard Annotate Code Date Date Description Closed 152097152 Active Iglesia Lala Closed nondisplaced (SNOMED 05/31 05/31 Stachowicz fracture fracture of CT) proximal greater humerus, tuberosity of greater right tuberosity humerus, initial encounter Ganglion cyst 033284823 Active Iglesia Lala Ganglion of of volar ([facility]ED 11/26 11/[facility] left wrist Carpal tunnel G56.02 Active Iglesia Lala 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, upper limb ) left upper limb Closed 43201650 Active Iglesia Lala Closed Traumatic; fracture of (SNOMED 04/14 04/14 [employer] fracture of comminuted distal end of CT) distal end of left radius radius with routine healing Primary 08025914 Active Barrington Chadwick Degenerative osteoarthriti (SNOMED 05/20 05/20 Reji SHEIKH joint disease s of left CT) of hand hand Mucous cyst 88969788 Active Barrington Chadwick Ganglion of of joint (SNOMED 05/20 05/[address]) Allergies, Adverse Reactions, Alerts Allergy Name Reaction Start Date Severity Status Provider Description SHELLFISH Critical Active Amanda Kelly PERMIT COORDINATOR IODINE Critical Active Amanda Kelly PERMIT COORDINATOR Social History No information available. Vital Signs Date Name Value Unit Description BMI (Body Mass 22.57 kg/m2 Body Mass Index Index) [Ratio] Preliminary vital sign data, not yet signed by the author as of BP Diastolic 91 mm[Hg] blood pressure, diastolic Preliminary vital sign data, not yet signed by the author as of BP Systolic 156 mm[Hg] blood pressure, systolic Preliminary vital sign data, not yet signed by the author as of Heart Rate 88 /min pulse rate E&M Preliminary vital sign data, not yet signed by the author as of Height 64 [in_us] height E&M Preliminary vital sign data, not yet signed by the author as of Height 163 cm height in centimeters E&M Preliminary vital sign data, not yet signed by the author as of Weight Measured 131 [lb_av] weight E&M Preliminary vital sign data, not yet signed by the author as of Weight Measured 60 kg weight in kilograms E&M Preliminary vital sign data, not yet signed by the author as of Results Date Name Value Unit Range Flag Description Office Visit: Follow-up by complaint, Rm: 2 MEDS REVIEW Done Documentation of current medications (procedure) Preliminary observation data, not yet signed by the author as of XRAY HX of the left xray history shoulder on 06/07/2017 at [facility] Preliminary observation data, not yet signed by the author as of Preliminary observation data, not yet signed by the author as of Clinical Summary: HMSPatientID P account number Procedures Code Procedure Name Date Entry Date CPT-82862 XR SHOULDER 4 VWS-RT G8731 Pain assessment documented as negative - follow-up not required G8427 Current medications documented 4004F-8P Tobacco screening or cessation counseling not performed - unknown reason G8420 BMI documented within normal parameters - no follow-up plan is required 5015F Fracture management ongoing care communicated [facility]-[id number] Patient Encounter Medications Administered No information available. Immunizations No information available. Advance Directives There may be information available, but it has not been provided by the sender. Assessments There may be information available, but it has not been provided by the sender. Review of Systems There may be information available, but it has not been provided by the sender. Family History There may be information available, but it has not been provided by the sender. History of Past Illness There may be information available, but it has not been provided by the sender. History of Present Illness There may be information available, but it has not been provided by the sender.
--- OUTSIDE RECORDS SUMMARY | 2018-06-27 19:50 | XMS RPT_ITS ---
:1955 Author Organization [employer] Address [address] [place] [address] Phone Care Team Providers Name Role Phone [...] CompletedPlease follow-up with Primary Care Physician or Radio Time Buyer for treatment or adjustment of medication regarding elevated blood pressure. Plan of Care Type Date Detail Appointment 03:15 PM Iglesia Bass MD, [address] [facility], [address], [place], [address], Patient education \cps-sql1\CPS_PtEducation\htn. pdf Medications Medication Instructions Start Stop Generic Name NDC Provider Date Date BUSPIRONE HCL 10mg twice a day / BUSPIRONE HCL 96041056683 Iglesia Lala TABS 26 TABS Shelia SHEIKH ZOLOFT 100 MG One daily / SERTRALINE 55296799723 Iglesia Lala TABS 30 HCL Shelia SHEIKH MULTIVITAL MULTIPLE 18416205210 Amanda Kelly TABS 30 VITAMINS-MINE PROGRAM DIRECTOR RALS CALCIUM TABS / CALCIUM TABS 70910188810 Amanda Kelly 30 PROGRAM DIRECTOR Conditions or Problems Problem Name Problem Onset Status Entry Provider Comment Standard Annotate Code Date Date Description Closed 261896986 Active Iglesia Lala Closed nondisplaced (SNOMED 05/31 05/31 Stachowicz fracture fracture of CT) proximal greater humerus, tuberosity of greater right tuberosity humerus, initial encounter Ganglion cyst 638519555 Active Iglesia Lala Ganglion of of volar (SNOMED 11/26 [facility] left wrist Carpal tunnel G56.02 Active Iglesia Lala 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, upper limb ) left upper limb Closed 61923169 Active Iglesia Lala Closed Traumatic; fracture of (SNOMED 04/14 04/14 [employer] fracture of comminuted distal end of CT) distal end of left radius radius with routine healing Primary 50128496 Active Barrington Chadwick Degenerative osteoarthriti (SNOMED 05/20 05/20 Reji SHEIKH joint disease s of left CT) of hand hand Mucous cyst 03131737 Active Barrington Chadwick Ganglion of of joint (SNOMED 05/20 05/[address]) Allergies, Adverse Reactions, Alerts Allergy Name Reaction Start Date Severity Status Provider Description SHELLFISH Critical Active Amanda Kelly PROGRAM DIRECTOR IODINE Critical Active Amanda Kelly PROGRAM DIRECTOR Social History No information available. Vital Signs Date Name Value Unit Description BMI (Body Mass 22.57 kg/m2 Body Mass Index Index) [Ratio] Preliminary vital sign data, not yet signed by the author as of BP Diastolic 89 mm[Hg] blood pressure, diastolic Preliminary vital sign data, not yet signed by the author as of BP Diastolic 77 mm[Hg] blood pressure, diastolic, second observation Preliminary vital sign data, not yet signed by the author as of BP Systolic 162 mm[Hg] blood pressure, systolic Preliminary vital sign data, not yet signed by the author as of BP Systolic 159 mm[Hg] blood pressure, systolic, second observation Preliminary vital sign data, not yet signed by the author as of Heart Rate 68 /min pulse rate E&M Preliminary vital sign [...] Description Office Visit: Follow-up by complaint, Rm: 2, right shoulder MEDS REVIEW Done Documentation of current medications (procedure) Preliminary observation data, not yet signed by the author as of Preliminary observation data, not yet signed by the author as of XRAY HX of the shoulder on xray history 06/16/2017 at [facility] [place] Preliminary observation data, not yet signed by the author as of Clinical Summary: HMSPatientID GOP account number Procedures Code Procedure Name Date Entry Date CPT-56026 XR SHOULDER 4 VWS-RT CPT-19492 Physical Therapy G8731 Pain assessment documented as negative - follow-up not required G8427 Current medications documented 4004F-8P Tobacco screening or cessation counseling not performed - unknown reason G8420 BMI documented within normal parameters - no follow-up plan is required G8950 Blood pressure outside of normal parameters - follow-up documented 5015F Fracture management ongoing care communicated [facility]-[id number] Patient Encounter Medications Administered No information available. [...]
--- OUTSIDE RECORDS SUMMARY | 2018-06-27 19:50 | XMS RPT_ITS ---
:1955 Author Organization [email or web address] Address [address] [place] [address] Phone Care Team Providers Name Role Phone [...] as of Instructions Instruction Description Start Date Completed Plan of Care Type Date Detail Appointment 07:30 AM Iglesia Bass MD, [address], [address], Patient education \cps-sql1\CPS_PtEducation\htn. pdf Medications Medication Instructions Start Stop Generic Name ND Provider Date Date VITAMIN D3 1 tablet daily / CHOLECALCIFEROL 20219800095 Iglesia Lala [address] Shelia NEELY MD ZOLOFT 100 MG One tablet / SERTRALINE HCL 53152908617 Iglesia Lala TABS twice daily 30 Shelia SHEIKH CALCIUM TABS 1 tablet daily / CALCIUM TABS Iglesia Z 30 Shelia SHEIKH MULTIVITAL 1 tablet daily / MULTIPLE 42186233992 Iglesia Z ORAL TABLET 30 VITAMINS-MINERALS Shelia SHEIKH BUSPIRONE HCL 10mg twice a / BUSPIRONE HCL 80412957145 Iglesia Z TABS day 26 TABS Shelia SHEIKH Conditions or Problems Problem Name Problem Onset Status Entry Provider Comment Standard Annotate Code Date Date Description Rotator cuff 875483313 Active Iglesia Lala Rotator cuff impingement (SNOMED 08/23 08/[address]lia [address] of [address]) syndrome right shoulder Closed 274350067 Active Iglesia Lala Closed nondisplaced (SNOMED 05/31 05/31 [place] fracture fracture of CT) proximal greater humerus, tuberosity of greater right tuberosity humerus, initial encounter Ganglion cyst 281108925 Active Iglesia Lala Ganglion of of volar (SNOMED 11/26 11/26 [place] wrist aspect of CT) left wrist Carpal tunnel G56.02 Active Iglesia Lala Carpal tunnel syndrome left (ICD-10-CM Stachotommy syndrome, 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 Closed 74508796 Active Iglesia Lala Closed Traumatic; fracture of (SNOMED 04/14 04/14 Shelia fracture of comminuted distal end of CT) distal end of left radius radius with routine healing Primary 20624042 Active Barrington Chadwick Degenerative osteoarthriti (SNOMED 05/20 05/20 Reji SHEIKH joint disease s of left CT) of hand hand Mucous cyst 23122945 Active Barrington Chadwick Ganglion of of joint (SNOMED 05/20 05/[address]) Allergies, Adverse Reactions, Alerts Allergy Name Reaction Start Date Severity Status Provider Description SHELLFISH Critical Active Amanda Kelly ROW BOSS HOEING IODINE Critical Active Amanda Kelly ROW BOSS HOEING Social History No information available. Vital Signs Date Name Value Unit Description BMI (Body Mass 22.57 kg/m2 Body Mass Index Index) [Ratio] Preliminary vital sign data, not yet signed by the author as of BP Diastolic 84 mm[Hg] blood pressure, diastolic Preliminary vital sign data, not yet signed by the author as of BP Diastolic 77 mm[Hg] blood pressure, diastolic, second observation Preliminary vital sign data, not yet signed by the author as of BP Systolic 150 mm[Hg] blood pressure, systolic Preliminary vital sign data, not yet signed by the author as of BP Systolic 153 mm[Hg] blood pressure, systolic, second observation Preliminary vital sign data, not yet signed by the author as of Heart Rate 76 /min pulse rate E&M Preliminary vital sign [...] Description Office Visit: Follow-up by complaint, Rm: 5 MEDS REVIEW Done Documentation of current medications (procedure) Preliminary observation data, not yet signed by the author as of XRAY HX of the right xray history shoulder on 08/23/2017 at [facility] Preliminary observation data, not yet signed by the author as of Preliminary observation data, not yet signed by the author as of Clinical Summary: HMSPatientID SOP account number Procedures Code Procedure Name Date Entry Date G8730 Pain assessment documented as positive - follow-up documented G8427 Current medications documented 4004F-8P Tobacco screening or cessation counseling not performed - unknown reason G8420 BMI documented within normal parameters - no follow-up plan is required G8952 Blood pressure outside of normal parameters - follow-up not documented [facility]-[id number] Patient Encounter Medications Administered No information available. [...]
--- OUTSIDE RECORDS SUMMARY | 2018-06-27 19:50 | XMS RPT_ITS ---
:1955 Author Organization [employer] Address [address] [place] [address] Phone Care Team Providers Name Role Phone [...] Plan of Care Type Date Detail Appointment 08:00 AM Iglesia Bass MD, [address], [address], Medications Medication Instructions Start Stop Generic Name NDC Provider Date Date VITAMIN D3 1 tablet daily / CHOLECALCIFEROL 68199516155 Iglesia Lala [address] Shelia NEELY MD ZOLOFT 100 MG One tablet / SERTRALINE HCL 26212877961 Iglesia Lala TABS twice daily 30 Shelia SHEIKH CALCIUM TABS 1 tablet daily / CALCIUM TABS Iglesia Z 30 Shelia SHEIKH MULTIVITAL 1 tablet daily / MULTIPLE 46044569223 Iglesia Z TABS 30 VITAMINS-MINERALS Shelia SHEIKH BUSPIRONE HCL 10mg twice a / BUSPIRONE HCL 82529696346 Iglesia Lala TABS day 26 TABS Shelia SHEIKH Conditions or Problems Problem Name Problem Onset Status Entry Provider Comment Standard Annotate Code Date Date Description Closed 320386923 Active Iglesia Lala Closed nondisplaced (SNOMED 05/31 05/31 Stachowicz fracture fracture of CT) proximal greater humerus, tuberosity of greater right tuberosity humerus, initial encounter Ganglion cyst 420260413 Active Iglesia Lala Ganglion of of volar (SNOMED 11/26 11/26 [place]icz wrist aspect of CT) left wrist Carpal tunnel G56.02 Active Iglesia Lala 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, upper limb ) left upper limb Closed 76830296 Active Iglesia Lala Closed Traumatic; fracture of (SNOMED 04/14 04/14 [employer] fracture of comminuted distal end of CT) distal end of left radius radius with routine healing Primary 44779738 Active Barrington Chadwick Degenerative osteoarthriti (SNOMED 05/20 05/20 Reji SHEIKH joint disease s of left CT) of hand hand Mucous cyst 05331871 Active Barrington Chadwick Ganglion of of joint (SNOMED 05/20 05/[address]) Allergies, Adverse Reactions, Alerts Allergy Name Reaction Start Date Severity Status Provider Description SHELLFISH Critical Active Amanda Kelly AIRFIELD MANAGER IODINE Critical Active Amanda Kelly AIRFIELD MANAGER Social History Concept Description Observation Name Observation Value Units Start Date 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 Preliminary social history data, not yet signed by the author as of Vital Signs Date Name Value Unit Description BMI (Body Mass 22.57 kg/m2 Body Mass Index Index) [Ratio] Preliminary vital sign data, not yet signed by the author as of BP Diastolic 110 mm[Hg] blood pressure, diastolic Preliminary vital sign data, not yet signed by the author as of BP Diastolic 93 mm[Hg] blood pressure, diastolic, second observation Preliminary vital sign data, not yet signed by the author as of BP Systolic 176 mm[Hg] blood pressure, systolic Preliminary vital sign data, not yet signed by the author as of BP Systolic 177 mm[Hg] blood pressure, systolic, second observation Preliminary vital sign data, not yet signed by the author as of Heart Rate 73 /min pulse rate E&M Preliminary vital sign [...] Range Flag Description Office Visit: Follow-up by Iftikhar antunez: MEDS REVIEW Done Documentation of current medications (procedure) Preliminary observation data, not yet signed by the author as of Preliminary observation data, not yet signed by the author as of Clinical Summary: HMSPatientID SOP account number Procedures Code Procedure Name Date Entry Date CPT-27715 XR SHOULDER 4 VWS-RT CPT-42111 Physical Therapy G8731 Pain assessment documented as negative - follow-up not required G8427 Current medications documented 4004F-8P Tobacco screening or cessation counseling not performed - unknown reason G8420 BMI documented within normal parameters - no follow-up plan is required G8952 Blood pressure outside of normal parameters - follow-up not documented 5015F Fracture management ongoing care communicated [facility]-[id number] Patient Encounter Medications Administered No information available. [...]
--- OUTSIDE RECORDS SUMMARY | 2018-06-27 19:50 | XMS RPT_ITS ---
:1955 Author Organization [facility] Address [address] [place] [address] Phone Care Team Providers Name Role Phone Shelia SHEIKH, Iglesia Lala Unavailable Reason for Visit Reason For Visit Description Start Date Follow-up by complaint Preliminary reason for visit data, not yet signed by the author as of right shoulder injury Preliminary reason for visit data, not yet signed by the author as of Chief Complaint Chief Complaint Description Start Date right shoulder injury Preliminary chief complaint data, not yet signed by the author as of Instructions Instruction Description Start Date Completed Plan of Care Type Date Detail Appointment 07:45 AM Iglesia Bass MD, [address] [address], [place], [address], Medications Medication Instructions Start Stop Generic Name NDC Provider Date Date VITAMIN D3 1 tablet daily / CHOLECALCIFEROL 27806518956 Iglesia Lala 3000 UN[address] 25 Shelia NEELY MD ZOLOFT 100 MG One tablet / SERTRALINE HCL [id number] Iglesia Lala TABS twice daily 30 Shelia SHEIKH CALCIUM TABS 1 tablet daily / CALCIUM TABS Iglesia Z 30 Shelia SHEIKH MULTIVITAL 1 tablet daily / MULTIPLE [id number] Iglesia Z ORAL TABLET 30 VITAMINS-MINERALS Shelia SHEIKH BUSPIRONE HCL 10mg twice a / BUSPIRONE HCL [id number] Iglesia Lala TABS day 26 TABS Shelia SHEIKH Conditions or Problems Problem Name Problem Onset Status Entry Provider Comment Standard Annotate Code Date Date Description Rotator cuff 985574217 Active Iglesia Z [facility]ator [facility] MD syndrome right shoulder Closed 583194621 Active Iglesia Z [facility] MD proximal greater humerus, tuberosity of greater right tuberosity humerus, initial encounter Ganglion cyst 510728799 Active Iglesia Z Ganglion [facility] volar [facility] MD left wrist Carpal tunnel G56.02 Active Iglesia Z 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, 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 Closed 80060297 Active Iglesia Z Closed Traumatic; [facility] comminuted distal end of CT) distal end of left radius radius with routine healing Primary 23919777 Active Barrington Chadwick Degenerative osteoarthriti (SNOMED 05/20 05/20 Reji SHEIKH joint disease s of left CT) of hand hand Mucous cyst 62819018 Active Barrington Chadwick Ganglion of of joint (SNOMED 05/20 05/[address]) Allergies, Adverse Reactions, Alerts Allergy Name Reaction Start Date Severity Status Provider Description SHELLFISH Critical Active Amanda Mendoza LPN IODINE Critical Active Amanda Mendoza LPN Social History Concept Description Observation Name Observation Value Units Start Date 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 Preliminary social history data, not yet signed by the author as of Vital Signs Date Name Value Unit Description BMI (Body Mass 22.57 kg/m2 Body Mass Index Index) [Ratio] Preliminary vital sign data, not yet signed by the author as of BP Diastolic 88 mm[Hg] blood pressure, diastolic Preliminary vital sign data, not yet signed by the author as of BP Diastolic 82 mm[Hg] blood pressure, diastolic, second observation Preliminary vital sign data, not yet signed by the author as of BP Systolic 146 mm[Hg] blood pressure, systolic Preliminary vital sign data, not yet signed by the author as of BP Systolic 139 mm[Hg] blood pressure, systolic, second observation Preliminary vital sign data, not yet signed by the author as of Heart Rate 79 /min pulse rate E&M Preliminary vital sign [...] Procedures Code Procedure Name Date Entry Date [id number] Physical Therapy G8731 Pain assessment documented as negative - follow-up not required G8427 Current medications documented [id number] Tobacco screening or cessation counseling not performed - unknown reason G8420 BMI documented within normal parameters - no follow-up plan is required G8783 Blood pressure within normal parameters - no follow-up required [id number] Patient Encounter Medications Administered No information available. [...]
--- OUTSIDE RECORDS SUMMARY | 2018-06-27 19:50 | XMS RPT_ITS ---
:1955 Author Organization [place] Support Name Relationship Address Phone KAREY, GALE Unavailable [address] + [place] [address] [employer] Unavailable [address] + [place] [address] KAREY, GALE Unavailable [address] + [place] [address] [employer] Unavailable [address] + [place] [address] KAREY, GALE Unavailable [address] + [place] [address] [employer] Unavailable [address] + [place] [address] KAREY, GALE Unavailable [address] + [place] [address] [employer] Unavailable [address] + [place] [address] KAREY, GALE Unavailable [address] + [place] [address] [employer] Unavailable [address] + [place] [address] KAREY, GALE Unavailable [address] + [place] [address] [employer] Unavailable [address] + [place] [address] KAREY, GALE Unavailable [address] + [place] [address] [employer] Unavailable [address] + [place] [address] KAREY, GALE Unavailable [address] + [place] [address] [employer] Unavailable [address] + [place] [address] [employer] [facility] [employer] Unavailable [phone] [place] [address] KAREY, GALE Unavailable [address] + [place] [address] [employer] Unavailable [phone] [place] [address] KAREY, GALE Unavailable [address] + [place] [address] [employer] Unavailable [phone] [place] [address] KAREY, L Unavailable [address] + [place] [address] [employer] Unavailable [phone] [place] [address] KAREY, L Unavailable [address] + [place] [address] Care Team Providers Name Role Phone Darci Arenas Admitting Unavailable Darci Arenas Attending Unavailable Nesha, [place] A Primary Care Unavailable Rashawn Adams Attending Unavailable Rashawn Adams Referring Unavailable [facility], [place] Primary Care Unavailable [facility], [place] Primary Care Unavailable Anna, Eladio Referring Unavailable Anna, Eladio Consulting Unavailable Dwain, Reji Admitting Unavailable Dwain, Reji Attending Unavailable Dwain, Reji Admitting Unavailable Dwain, Reji Attending Unavailable Anna, [place] Referring Unavailable [facility], [place] Primary Care Unavailable Anna, [place] Consulting Unavailable Dwain, Reji Consulting Unavailable Dwain, Reji Admitting Unavailable Anna, Eladio Attending Unavailable Anna, [place] Referring Unavailable Nesha, [place] Primary Care Unavailable Anna, [place] Consulting Unavailable Dwain, Reji Consulting Unavailable Guillermina Kerr Attending Unavailable [facility], [place] Primary Care Unavailable Preston Vail Attending Unavailable [facility], [place] Primary Care Unavailable JAYDEN JAMA Consulting Unavailable Iglesia Bass Referring Unavailable Iglesia Bass [facility]ending [facility] Unavailable [facility], [place] Primary Care Unavailable [facility], [place] Primary Care Unavailable Coreen Jones Attending Unavailable Nesha, [place] Primary Care Unavailable Elísa Ocampo Attending Unavailable Reji Prakash Admitting Unavailable Reji Prakash Attending Unavailable Eladio Varela Referring Unavailable [place] Jeffries Primary Care Unavailable Eladio Varela Consulting Unavailable Reji Prakash Consulting Unavailable [place] Jeffries Primary Care Unavailable Chu Marie Attending Unavailable PROBLEMS PROBLEMS DATE TYPE CONDITION / CODE ATTENDING STATUS SOURCE 09/23/2017 Unknown S42.254D - Stachowicz, Active [place] Nondisplaced Iglesia Z [facility] fracture of Hospital greater tuberosity Repository of right humerus, subsequent encounter for fracture with routine healing / S42.254D(ICD-10) 07/08/2017 Unknown Z78.0 - [place] Jeffries Active [place] Asymptomatic Community menopausal state / Hospital Z78.0(ICD-10) Repository 05/30/2017 Unknown S42.301A - Preston Vail Active [place] Unspecified [facility] fracture of shaft Hospital of humerus, right Repository arm, initial encounter for closed fracture / S42.301A(ICD-10) PROCEDURES PROCEDURES No Procedure Records FoundRESULTS RESULTS EMERGENCY DEPARTMENT Observed: 04/25/2018 Status: F Source: [place] SUMMARY 9:44 AM [facility] Medical Records Department [address] [place] [address] Emergency Department Summary 04/25/18 0942 MR#: [id number] Acct: [id number] Name: MARI EDEN Rep #: [id number] : 1955 62 From: Chu Marie MD PCP: [place] Jeffries MD Status: PRE ER - ER Visit Summary Date of Service: 04/25/18 Chief Complaint: Small allergic reaction History of Present Illness: The patient is a 62 F, heart rate 118 who thinks she may have an allergic reaction. She was started on lisinopril, Eliquis and metoprolol 1 week ago. She had a heart catheterization done by Dr. Varela at that time. She states that 3 days ago she developed a rash on her arms and trunk. She feels like her face is swollen and her skin is burning. No fevers. No trouble breathing. She took nothing for this at home. She has no history of this in the past. Physical Examination: Vital signs reviewed. HEENT exam reveals mild swelling around the eyes. She has no oral lesions. No tongue swelling. Uvula is midline without swelling. Heart is regular rate and rhythm. Lungs are clear bilaterally. Abdomen soft and nontender. There is a mild rash of the right arm. Her neurologic exam is normal. Test Results: None performed Emergency Department Course and Treatment: It is definitely possible that the patient has allergic reaction to 1 of these medications. However, I do not feel it is prudent that she stop them at this point. I will treat her with short course of steroids. She will follow-up with Dr. Varela if her symptoms persist. Treatment Plan: [] Disposition: Discharge Impression: Allergic reaction medication This note was generated with TaleSpringation software. It may contain incorrect words, spelling, and punctuation that were not noted in review of the chart prior to signing ED Disposition - Plan for ED Patient: Chief Complaint: Allergic Reaction Referrals: [place] Jeffries MD [Primary Care Provider] - What to do if you have Problems For any increased pain, shortness of breath, bleeding, nausea or vomiting, chest pain, or any unexpected problems, contact your Primary Care Provider. Call [facility] ([phone]) or report to the closest Emergency Room. Call 911 if necessary. 04/25/18943 <Electronically signed by Chu Marie MD> Date Chu Marie MD Cosigner Signature (If Indicated): Date CC: [place] Jeffries MD DISCHARGE INSTRUCTION Observed: 04/25/2018 Status: F Source: [place] 9:44 AM [facility] [place] Medical Records Department [address] [place] [address] Discharge Instruction 04/25/18943 MR#: [id number] Acct: [id number] Name: MARI EDEN Rep #: [id number] : 1955 62 From: Chu Marie MD PCP: [place] Jeffries MD Status: PRE ER ED Disposition - Plan for ED Patient: Disposition: Home or Assisted Living Chief Complaint: Allergic Reaction Instructions: ED Drug React Allergic Prescriptions: Prednisone [Deltasone] 40 mg PO DAILY #10 tab Referrals: [place] Jeffries MD [Primary Care Provider] - What to do if you have Problems For any increased pain, shortness of breath, bleeding, nausea or vomiting, chest pain, or any unexpected problems, contact your Primary Care Provider. Call [facility] ([phone]) or report to the closest Emergency Room. Call 911 if necessary. 04/25/18 0944 <Electronically signed by Chu Marie MD> Date Chu Marie MD Cosigner Signature (If Indicated): Date CC: [place] Jeffries MD EMERGENCY DEPARTMENT Observed: 04/22/2018 Status: F Source: [place] SUMMARY 12:13 AM [facility] Medical Records Department [address] [place] [address] Emergency Department Summary 04/18/18 0750 MR#: [id number] Acct: [id number] Name: MARI EDEN Rep #: [id number] : 1955 62 From: Prakash Mars MD PCP: [place] Jeffries MD Status: DIS IN - ER Visit Summary Date of Service: 04/18/18 Chief Complaint: Chest pain History of Present Illness: The patient is a [address] [place] Jeffries. She reports that she developed chest pain yesterday afternoon while going up and down the steps. She reports that she became lightheaded, short of breath, diaphoretic, and nauseated. She did not vomit. She describes this as a pressure. She does report is been constant since this began yesterday. However, it is much worse when she exerts herself. It is 2 out of 10 currently and 6 out of 10 with exertion. She states that it improves with rest. Patient reports that she had an episode of this in the summer when she was mowing the lawn. She has not had a evaluation for this. She reports that her last stress test was a long time ago. Physical Examination: Vitals: Stable. Afebrile. General: Well-nourished and well-developed. Head: Normocephalic atraumatic. Neck: Supple, no lymphadenopathy. No JVD. Nontender. Cardiovascular: Regular rate and rhythm. No murmurs. Respiratory: No respiratory distress. Clear to auscultation bilaterally. Abdominal: Soft, nontender, nondistended, normal bowel sounds. No guarding, rebound, or peritoneal signs. Back: Nontender. Extremities: Nontender, no edema. Skin: Normal color, no rash. Neurologic: Alert and oriented 3. Cranial nerves II through XII are intact. Normal strength and sensation. Psych: Normal affect. Test Results: EKG is sinus at [address] changes. She does have a Q wave in lead V6 and lead II. There is no old EKG for comparison. CBC is more for a white count of 4.2, H AND H 15.5 and 47.8, segmented neutrophils of 15, lymphocytes 62, monocytes of 18. Chem-7 is more for BUN of 23, creatinine 1.16, glucose 114. Troponin is 3.04. Chest x-ray shows chronic changes. Emergency Department Course and Treatment: Patient had an IV placed. She was treated with aspirin p.o. She is resting comfortably. Treatment Plan: The patient was discussed with Dr. Varela. He has that she be given Brilinta. Hold on heparin and Lovenox at this time. He plans on doing a heart catheterization today. The patient was then discussed with Dr. Prakash. She will be admitted to the hospital for further evaluation and treatment. Disposition: Admitted in improved condition. Impression: 1. Non-ST elevation DC. 2. ARIADNA score of 2. 3. Critical care time 30 minutes. This note was generated with TaleSpringation software. It may contain incorrect words, spelling, and punctuation that were not noted in review of the chart prior to signing ED Disposition - Plan for ED Patient: Chief Complaint: Chest Pain Referrals: [place] Jeffries MD [Primary Care Provider] - What to do if you have Problems For any increased pain, shortness of breath, bleeding, nausea or vomiting, chest pain, or any unexpected problems, contact your Primary Care Provider. Call [facility] ([phone]) or report to the closest Emergency Room. Call 911 if necessary. 04/22/18 0013 <Electronically signed by Prakash Mars MD> Date Prakash Mars MD Cosigner Signature (If Indicated): Date CC: [place] Jeffries MD 12 LEAD ELECTROCARDIOGRAM Observed: 04/21/2018 Status: F Source: [place] 4:13 PM [facility] Cardiovascular Services [address] [place] [id number] 12 Lead EKG 04/18/18 1332 MR#: [id number] Acct: [id number] Name: MARI EDEN Rep #: [id number] : 1955 62 From: Guido Albrecht MD Attending Dr: Reji Prakash MD Status: DIS IN Ordering Dr: Reji Prakash MD Date: 04/18/18 Location: [facility] Sex: F C Admitted: 04/18/18 Test Reason : Blood Pressure : / mmHG Vent. Rate : 068 BPM Atrial Rate : 068 BPM P-R Int : 120 ms QRS Dur : 074 ms QT Int : 442 ms P-R-T Axes : 050 -36 059 degrees QTc Int : 469 ms Normal sinus rhythm Left axis deviation Nonspecific T wave abnormality Abnormal ECG Confirmed by AMBROCIO SHEIKH, GUIDO ([id number]), publishing editor WESLEY MARIANO ([id number]) on 04/21/2018 4:12:53 PM Referred By: Eladio Varela Confirmed By:GUIDO ALBRECHT MD 04/21/18 9632 Date Guido Albrecht MD CC: Eladio Varela MD; Reji Prakash MD; [place] Jeffries MD Signed 12 LEAD ELECTROCARDIOGRAM Observed: 04/19/2018 Status: F Source: [place] 5:16 PM [facility] Cardiovascular Services [address] [place] [address] 12 Lead EKG 04/18/18 0711 MR#: [id number] Acct: [id number] Name: MARI EDEN Rep #: [id number] : 1955 62 From: Eladio Varela MD Attending Dr: Reji Prakash MD Status: DIS IN Ordering Dr: Prakash Mars MD Date: 04/18/18 Location: [facility] Sex: F C Admitted: 04/18/18 Test Reason : CP Blood Pressure : / mmHG Vent. Rate : 076 BPM Atrial Rate : 076 BPM P-R Int : 136 ms QRS Dur : 078 ms QT Int : 376 ms P-R-T Axes : 051 -46 050 degrees QTc Int : 423 ms Normal sinus rhythm Possible Left atrial enlargement Left anterior fascicular block Possible Lateral infarct , age undetermined Abnormal ECG Confirmed by ANNA SHEIKH, ELADIO ([id number]), publishing editor WESLEY MARIANO ([id number]) on 04/19/2018 5:15:59 PM Referred By: Eladio Varela Confirmed By:ELADIO VARELA MD 04/19/18 1716 Date Eladio Varela MD CC: Eladio Varela MD; Reji Prakash MD; Prakash Mars MD; [place] Jeffries MD Signed DISCHARGE SUMMARY Observed: 04/19/2018 Status: F Source: [place] 4:13 PM [facility] Medical Records Department [address] [place] [address] Discharge Summary 04/19/18 0742 MR#: [id number] Acct: [id number] Name: MARI EDEN Rep #: [id number] : 1955 62 From: eRji Prakash MD PCP: [place] Jeffries MD Status: DIS IN Y Location: [place] [address]-1 Discharge Date and Diagnosis Date of Admission: 04/18/18 Date of Discharge: 04/19/18 - Primary Discharge Diagnosis Active and Suspected Problems Atypical chest pain (Acute) Non-STEMI (non-ST elevated myocardial infarction) (Acute) Hospital Course and Treatment Imaging Results: 04/19/18 07:32 Echo Complete [ECHO] Routine Summary of Care Provided: [] The patient is a 62 year old F with no significant past medical history was admitted to PCU after she had chest pressure since yesterday evening while going up and down the stairs. She denies associated shortness of breath but was mildly diaphoretic, nauseated. Chest pressure radiated to left jaw. In ED, EKG showed nonspecific ST-T changes but troponin was elevated. Troponin 3.04 and 2.24. Entry Level Project Coordinator was called from the ER and patient was taken to Manager Cable directly. 1. Non-STEMI: Patient underwent cardiac cath was found to have Takotsubo cardiomyopathy/apical ballooning syndrome. Normal coronary arteries. EF 45%. Apical akinesis. Fasting profile shows total cholesterol 246, LDL 130, HDL 86, VLDL 30. TSH 2.57. On aspirin, low-dose lisinopril and metoprolol 25 twice daily. Patient also started on low-dose Eliquis 2.5 mg twice daily for apical akinesis, for the prophylaxis for ventricular thrombosis. Repeat echo after 2-month. Follow with Dr. varela. 2. Nicotine use, cigarette smoking: On nicotine patch. Smoking cessation advised. 3. DVT prophylaxis: On heparin 500 subcutaneous twice daily Discharge medication reconciliation done. Discharge follow- up instructions completed. Discharge process discussed with the patient and her near the bedside. Prescription sent to the pharmacy. Discharge medicines discussed with the patient. Total time spent, exact 35 minutes on discharge meds reconciliation, examination, review of imaging and blood test and discussion with the patient on follow-up instructions. This note was generated with TaleSpringation software. Every effort was made to ensure accuracy, however computerized mapping supervisor mistakes may persist. All the patient was admitted with non-STEMI as inpatient she had sooner recovery than expected and discharged. Subjective: Seen and examined. Patient does not have chest pressure/shortness of breath. Comfortable. Right radial cardiac cath access site; no hematoma - Physical Exam General: Alert, Oriented x3, Cooperative HEENT: Atraumatic, PERRLA, EOMI, Normocephalic Neck: Supple, No JVD, Negative Carotid Bruits Lungs: Clear to auscultation, Normal air movement, No rhonchi, No wheeze, No rales Cardiovascular: Regular rate, Regular Rhythm, Normal S1, Normal S2, No murmurs Abdomen: Bowel Sounds Present, Soft, Non Tender, Non-Distended Extremities: No edema, Capillary Refill Less than 3 Seconds Skin: No rashes, No breakdown Musculoskeletal: No Tenderness to Palpation of Joints or Extremities Neurological: Cranial nerves II-XII grossly intact Psych/Mental Status: Normal Affect, Appropriate Vital Signs Temp Pulse Resp BP Pulse Ox 97.9 F 62 16 122/76 H 95 04/19/18 04:00 04/19/18 04:00 04/19/18 04:00 04/19/18 04:00 04/19/18 04:00 Oxygen Flow Rate (L/min) 2 Oxygen Delivery Method Room Air Weight: 143 lb 1.28 oz Body Mass Index (BMI) 24.5 Intake and Output for Last 24 Hours Intake Total 1083 / 1083 60 / 60 Balance 1083 / 1083 60 / 60 Laboratory Tests Past 24 Hrs WBC 4.2 L RBC 4.83 Hgb 15.5 H Hct 47.8 H MCV 99.0 MCH 32.1 H MCHC 32.4 RDW 12.8 WBC RBC Hgb Hct MCV MCH MCHC RDW RDW Differential Plt Count MPV Immature Gran % (Auto) Neut % (Auto) Lymph % (Auto) Discharge Activity: Return to Normal Activity, May Not Drive - for 1 week Home Medications: Medications to take at Discharge Sertraline HCl [Zoloft] 100 mg PO BID 02/09/16 busPIRone [Buspar] 10 mg PO BID 05/30/17 Calcium Carbonate/Vitamin D3 [Calcium 600 + Vit D Tablet] 1 each PO DAILY 04/18/18 Folic Acid 0.4 mg PO DAILY@0800 04/18/18 Mv-Mn/Folic Acid/Calcium/Vit K [Women's 50 Plus Daily Formula] 1 each PO DAILY 04/18/18 Apixaban [Eliquis] 2.5 mg PO BID #60 tablet 04/19/18 Lisinopril [Zestril] 2.5 mg PO DAILY #30 tablet 04/19/18 Metoprolol Tartrate [Lopressor (beta kaylin)] 25 mg PO BID #60 tablet 04/19/18 Following Prescrptions Were Given to Patient: Lisinopril [Zestril] 2.5 mg PO DAILY #30 tablet Apixaban [Eliquis] 2.5 mg PO BID #60 tablet Metoprolol Tartrate [Lopressor (beta kaylin)] 25 mg PO BID #60 tablet Primary Care Physician: [place] Jeffries MD [Primary Care Provider] - Please follow up with your Primary Care Physician in: in 1- 2 week Please Follow Up With: Eladio Varela MD When: in 4-6 weeks Medical Necessity - Tobacco Use Smoking Status: Current every day smoker Meaningful Use Info Meaningful Use Diagnoses (Choose all that apply): AMI - AMI Aspirin given w/in 24hrs of arrival?: Yes ASA at discharge?: Yes Statins at discharge?: No Reason statins not ordered:: Drug Interaction - FLP wnl. Not indicated. Discussed with purchase price analyst Aldair/ARB at discharge?: Yes Beta Kaylin at discharge?: Yes Done w/ Acute DC measure.: Yes Code Visit Inpatient E AND M: [id number] Disch Hosp 04/19/18 1613 <Electronically signed by Reji Prakash MD> Date Reji Prakash MD Cosigner Signature (if applicable): Date CC: Reji Prakash MD; [place] Jeffries MD Signed ECHOCARDIOGRAM COMPLETE Observed: 04/19/2018 Status: F Source: [place] 12:44 PM [facility] Cardiovascular Services [address] [place] [address] Echo Complete 04/19/18 0906 MR#: [id number] Acct: [id number] Name: MARI EDEN Rep #: [id number] : 1955 62 From: Eladio Varela MD Attending Dr: Reji Prakash MD Status: DIS IN Ordering Dr: Eladio Varela MD Date: 04/19/18 Location: [facility] Sex: F C Admitted: 04/18/18 Reason For Study: S/P DC Procedure This was a 2D Doppler, Color Flow transthoracic echocardiogram. No IV access for Definity or Bubble Study. Exam performed portable in patient room. Left Ventricle Normal LV size. Left ventricular systolic function is lower limits of normal. The estimated ejection fraction is 50 %. No evidence for diastolic dysfunction. Tuttle : Akinetic. Right Ventricle Normal RV size. Normal systolic function. Atria Normal left atrium. Normal right atrium. Mitral Valve Mild diffuse mitral valve thickening. Mild (1+) eccentric mitral valve insufficiency. Tricuspid Valve Normal tricuspid valve. Mild (1+) tricuspid valve insufficiency. Pulmonary artery systolic pressure is 38 mmHg. Aortic Valve Normal aortic valve. Trisinus/trileaflet aortic valve. Pulmonic Valve Normal pulmonic valve. Great Vessels Normal aortic root. The pulmonary artery is normal size. Normal inferior vena cava. Pericardium/Pleural No pericardial effusion. MMode/2D Measurements AND Calculations LVIDd: 4.0 cm IVSd: 1.2 cm Ao root diam: 3.2 cm LVIDs: 2.3 cm LVPWd: 1.2 cm LA dimension: 3.8 cm RVDd: 3.3 cm FS: 43.6 % LAV(MOD-bp): 56.0 ml LVAd ap4: 29.3 cm2 SV(MOD-sp4): 47.2 ml LAV(MOD-bp) Indexed: 34.0 ml/m2 EDV(MOD-sp4): 82.9 ml LAV(MOD-sp2): 54.5 ml EDV(sp4-el): 85.6 ml LAV(MOD-sp4): 54.6 ml LVAs ap4: 17.7 cm2 ESV(MOD-sp4): 35.7 ml ESV(sp4-el): 35.1 ml EF(MOD-sp4): 56.9 % EF(sp4-el): 59.0 % SV(sp4-el): 50.4 ml LA A4 area: 18.6 cm2 RA A4 area: 14.0 cm2 Time Measurements MV dec time: 0.19 sec Doppler Measurements AND Calculations MV E max debby: 96.0 cm/sec MV V2 max: 111.3 cm/sec MV P1/2t max debby: 110.4 cm/sec MV A max debby: 73.3 cm/sec MV max P.0 mmHg MV P1/2t: 73.8 msec MV E/A: 1.3 MV V2 mean: 51.1 cm/sec MV mean P.3 mmHg MV dec slope: 438.3 cm/sec2 MV V2 VTI: 34.1 cm MVA(P1/2t): 3.0 cm2 Ao V2 max: 156.5 cm/sec LV V1 max: 107.8 cm/sec MR max debby: 510.8 cm/sec Ao max P.8 mmHg LV V1 max P.6 mmHg MR max P.4 mmHg Ao V2 mean: 106.3 cm/sec LV V1 mean P.6 mmHg MR mean debby: 391.7 cm/sec Ao mean P.1 mmHg LV V1 mean: 75.3 cm/sec MR mean P.8 mmHg Ao V2 VTI: 33.2 cm LV V1 VTI: 28.5 cm MR VTI: 180.9 cm PA V2 max: 71.0 cm/sec TR max debby: 291.3 cm/sec TR max P.0 mmHg Interpretation Summary Normal LV size. Left ventricular systolic function is lower limits of normal. The estimated ejection fraction is 50 %. No evidence for diastolic dysfunction. Tuttle : Akinetic. Mild (1+) tricuspid valve insufficiency. Above consistent with takutsobo cardiomyopathy Ordering Physician: Eladio Varela Referring Physician: Eladio Varela Performed By: Refugio Quiroz RCS 04/19/18 124 Date Eladio Varela MD CC: Eladio Varela MD; Reji Prakash MD; [place] Jeffries MD Date Dictated: 04/19/18905 Date Transcribed: 04/19/181242 Swimming Pool Maintenance: Signed CONSULTATION Observed: 04/19/2018 Status: F Source: [place] 10:07 AM [facility] Medical Records Department [address] [place] [address] Consultation 04/18/18925 MR#: [id number] Acct: [id number] Name: MARI EDEN Rep #: [id number] : 1955 62 From: Eladio Varela MD PCP: [place] Jeffries MD Status: ADM IN Y Location: [place] [address] Reason for Consult Date of Consultation: 04/18/18 Reason for Consultation: Chest tightness History of Present Illness: The patient is a 62 year old F who sees Dr. Modesto Jeffries. She reports that she developed chest pain yesterday afternoon while going up and down the steps. She reports that she became lightheaded, short of breath, diaphoretic, and nauseated. She did not vomit. She describes this as a pressure. She does report is been constant since this began yesterday. However, it is much worse when she exerts herself. It is 2 out of 10 currently and 6 out of 10 with exertion. She states that it improves with rest. She presented to the emergency room was evaluated and EKG was done which demonstrated nonspecific changes. However her troponin was noted to be abnormal. Cardiology was called for further evaluation and management. She does states that she had an episode of chest tightness last summer while she was mowing the lawn however she did not seek any medical attention. Past Medical History Allergies/Adverse Reactions: Allergies Iodinated Contrast- Oral and IV Dye [Iodinated Contrast Media - IV Dye] Adverse Reaction (Verified 04/18/18 07:06) Vomiting Home Medications: Ambulatory Orders Medication Instructions Recorded Lives: Spouse/ Significant Other Smoking Status: Current every day smoker Alcohol: Heavy Drugs: None Review of Systems - Review of Systems General: Denies: Fever, Night Sweats, Fatigue HEENT: Denies: Vision Change Cardiovascular: Reports: Chest Discomfort, Chest Pressure, Chest Tightness, Shortness of Breath, Shortness of Breath with Exertion, Dizziness. Denies: Orthopnea, PND, Peripheral Edema, Palpitations, Lightheadedness, Near Syncope, Syncope Respiratory: Denies: Cough, Sputum Production, Hemoptysis Gastrointestinal: Denies: Indigestion, Hematemesis, Hematochezia, Melena Genitourinary: Denies: Dysuria, Hematuria Muscoloskeletal: Denies: Myalgias Skin: Denies: Rash Neurological: Reports: Dizziness Psychiatric: Denies: Anxiety Endocrine: Denies: Unexplained Weight Loss Hematologic/ Lymphatic: Denies: Anemia Subjectve: Pleasant lady in no apparent distress Objective: Vital Signs Temp Pulse Resp BP Pulse Ox 98.6 F 72 17 111/71 97 04/18/18 08:30 04/18/18 08:30 04/18/18 08:30 04/18/18 08:30 04/18/18 08:30 Oxygen Flow Rate (L/min) 2 Oxygen Delivery Method Room Air Weight: 142 lb 6.698 oz Body Mass Index (BMI) 24.4 General: Awake, Alert, Oriented x 3 HEENT: PERRL, EOMI, Sclera Non Icteric Neck: Supple, Good ROM, No Lymph Node Enlargement Lungs: Clear to auscultation Cardiovascular: Regular Rhythm, Normal S1, Normal S2, No Murmurs, No Rubs, No Gallops Vascular: No Carotid Bruits, Normal Femoral Pulses, Normal Radial Pulses, Normal Dorsalis Pedal Pulse, Normal Posterior Tibial Pulses Abdomen: Bowel Sounds Present, Soft, Non Tender, No HSM, No Organomegaly Extremities: No Cyanosis, No Clubbing, No edema Neurological: No Focal Motor or Sensory Deficit Psych/Mental Status: Appropriate 04/18/18 07:00: WBC 4.2 L, RBC 4.83, Hgb 15.5 H, Hct 47.8 H, MCV 99.0, MCH 32.1 H, MCHC 32.4, RDW 12.8, RDW Differential 46.5 H, Plt Count 240, MPV 12.5 H, Immature Gran % (Auto) 0.000, Neut % (Auto) 14.8 L, Lymph % (Auto) 62.2 H, [place] % (Auto) 17.8 H, Eos % (Auto) 4.0, Baso % (Auto) 1.2 H, Absolute Neuts (auto) 0.6 L, Total Counted Not Reportable 04/18/18 07:00: Sodium 138, Potassium 3.8, Chloride 103, Carbon Dioxide 27.0, Anion Gap 8, BUN 23 H, Creatinine 1.16 H, Est GFR (MDRD) Af Amer 61, Est GFR (MDRD) Non-Af 50 L, BUN/Creatinine Ratio 19.8, Glucose 114 H, Calcium 9.3, Troponin I 3.040 H* Rhythm: EKG: Normal sinus rhythm with nonspecific ST-T wave changes Assessment/Plan 1. Non-ST elevation myocardial infarction * She presents with chest discomfort and is noted to have a non-ST elevation myocardial infarction. She does have risk factors with significant tobacco use. Her lipid level is unknown at this particular time. * Recommendation will be to start aspirin * Load with clopidogrel or ticagrelor * Discussed cardiac catheterization within the next few hours. The risk benefits and alternatives have been explained to her she understands and agrees to proceed. * This was also discussed with the ER physicians. * * Thank you for allowing me to participate in the care of your patient. Please don't hesitate to call if any issues arise 04/19/18 1007 <Electronically signed by Eladio Varela MD> Date Eladio Varela MD Cosigner Signature (if applicable): Date CC: Eladio Varela MD; Modesto Jeffries MD Signed DISCHARGE INSTRUCTION Observed: 04/19/2018 Status: F Source: [place] 9:57 AM [facility] Medical Records Department [address] [place] [address] Instructions for Home/Discharge Instructions 04/19/18 0741 MR#: [id number] Acct: [id number] Name: MARI EDEN Rep #: [id number] : 1955 62 From: Reji Prakash MD PCP: Modesto Jeffries MD Status: ADM IN - Discharge Diagnoses Current Active Problems: Current Active and Chronic Problems Atypical chest pain (Acute) Non-STEMI (non-ST elevated myocardial infarction) (Acute) You will use the following diet at home:: Cardiac Discharge Activity: Return to Normal Activity, May Not Drive - for 1 week Weight Bearing Status: Weight bearing as tolerated Call your doctor if you observe: Fever of 101 or Higher, Inability to urinate, Shortness of breath, Dizziness, Swelling in the ankles, Chest pain, Increased palpitations (irregular heartbeat), Calf discomfort Additional Instructions: Advised follow-up 2D echo in 2 months, to be ordered by PCP/purchase price analyst Allergies/Adverse Reactions: Allergies Iodinated Contrast- Oral and IV Dye [Iodinated Contrast Media - IV Dye] Adverse Reaction (Verified 04/18/18 07:06) Vomiting Medications to take at Discharge Sertraline HCl [Zoloft] 100 mg PO BID 02/09/16 busPIRone [Buspar] 10 mg PO BID 05/30/17 Calcium Carbonate/Vitamin D3 [Calcium 600 + Vit D Tablet] 1 each PO DAILY 04/18/18 Folic Acid 0.4 mg PO DAILY@0800 04/18/18 Mv-Mn/Folic Acid/Calcium/Vit K [Women's 50 Plus Daily Formula] 1 each PO DAILY 04/18/18 Apixaban [Eliquis] 2.5 mg PO BID #60 tablet 04/19/18 Lisinopril [Zestril] 2.5 mg PO DAILY #30 tablet 04/19/18 Metoprolol Tartrate [Lopressor (beta kaylin)] 25 mg PO BID #60 tablet 04/19/18 The following prescriptions were given: Lisinopril [Zestril] 2.5 mg PO DAILY #30 tablet Apixaban [Eliquis] 2.5 mg PO BID #60 tablet Metoprolol Tartrate [Lopressor (beta kaylin)] 25 mg PO BID #60 tablet Primary Care Physician: Modesto Jeffries MD [Primary Care Provider] - Please follow up with your Primary Care Physician in: in 1- 2 week Test Results: Test results from this visit will be discussed in further detail at your follow-up appointment, if applicable. Please Follow Up With: Eladio Varela MD When: in 4-6 weeks 04/19/18 0957 <Electronically signed by Reji Prakash MD> Date Reji Prakash MD CC: Eladio Varela MD; Modesto Jeffries MD Signed URINALYSIS, COMPLETE Collected: 04/18/2018 Status: F Source: [place] 4:45 PM [facility] Order Comment: How was Urine Obtained? HANDLING TECH TO SPECIFY TYPE CODE TESTS RESULT OUT OF REFERENCE UNITS RANGE LAB L400.3000 Yellow COLOR Normal Yellow LAB L400.3050 Clear CLARITY Normal Clear LAB L400.3200 Normal mg/dl GLUCOSE, UR High 250 LAB L400.3300 Negative mg/dL BILIRUBIN Normal URINE Negative LAB L400.3400 Negative mg/dl KETONE UR High 5 LAB L400.3465 1.002-1.030 SP.GR. Normal DIPSTX 1.015 LAB L400.3550 5.0 - 8.0 pH UR Normal 6.5 LAB L400.3600 Negative mg/dl PROT DIPSTX Normal Negative LAB L400.3700 Normal mg/dl UROBILI Normal Normal LAB L400.3750 Negative NITRITE UR Normal Negative LAB L400.3780 Negative /ul OCCULT High BLOOD-UR 10 LAB L400.3800 Negative /ul LEUK Normal ESTERASE Negative LAB L400.4050 0-5 /hpf WBC Normal 0 SEEN LAB L400.4100 0-5 /hpf RBC-UA Normal 0-5 SEEN LAB L400.4150 5-10 /hpf SQUAM EPI Normal 0-5 SEEN LAB L400.4300 None Seen /hpf BACTERIA Normal 0 SEEN LAB L400.4350 <or=2+ /hpf MUCUS, Normal URINE 0 SEEN LAB L400.4200 0-5 /hpf Normal TRANSITIONAL EP 0-5 SEEN Performed By: #### L400.0001 #### [facility] [address] [place], [address] Observed: 04/18/2018 Status: F Source: [place] CULTURE, URINE 4:45 PM [facility] Comments: if U/A positive Urine Culture Culture exhibits no growth. Performed By: #### M100.0650 #### [facility] [address] [place], [place], [address] HISTORY AND PHYSICAL Observed: 04/18/2018 Status: F Source: [place] EXAM 3:24 PM [facility] Medical Records Department [address] [place] [address] History and Physical 04/18/18 1238 MR#: [id number] Acct: [id number] Name: MARI EDEN Rep #: [id number] : 1955 62 From: Reji Prakash MD PCP: Modesto Jeffries MD Status: ADM IN Y Location: [place] [address] Problem List (1) Atypical chest pain Status: Acute (2) Non-STEMI (non-ST elevated myocardial infarction) Status: Acute History of Present Illness Date of Admission: 04/18/18 Chief Complaint: Atypical chest pain since yesterday The patient is a 62 year old F with no significant past medical history came to ED after she had chest pressure since yesterday evening while going up and down the stairs. She denies associated shortness of breath but was mildly diaphoretic, nauseated. Chest pressure radiated to left jaw. In ED, EKG showed nonspecific ST-T changes but troponin was elevated. Troponin 3.04 and 2.24. Entry Level Project Coordinator was called from the ER and patient was taken to Manager Cable directly. Past Medical History Allergies Iodinated Contrast- Oral and IV Dye [Iodinated Contrast Media - IV Dye] Adverse Reaction (Verified 04/18/18 07:06) Vomiting Home Medications: Ambulatory Orders Medication Instructions Recorded Lives: Spouse/ Significant Other Smoking Status: Current every day smoker Alcohol: Heavy Drugs: None - *Family History Maternal History Items: Heart Disease - In 50s. Coronary artery disease Paternal History Items: Heart Disease Review of Systems Constitutional: Denies: Chills, Fever, Weight Change HEENT: Denies: Head Aches, Sinus Congestion, Sinus Drainage Cardiovascular: Reports: Chest Pressure, Chest Tightness, Edema - Sometimes. Denies: Palpitations Respiratory: Denies: Cough, Shortness of breath at rest, Sputum production Gastrointestinal: Denies: Abdominal Pain, Nausea, Vomiting Genitourinary: Denies: Dysuria Musculoskeletal: Denies: Joint Pain, Joint Tenderness Skin: Denies: Rash, Wounds Neurological: Denies: Numbness, Tingling, Focal weakness Psychiatric: Denies: Anxiety, Depression, Homicidal Ideations, Suicidal Ideations Hematologic/ Lymphatic: Denies: Easy Bruising, Easy Bleeding VTE Information - Inpt Only VTE Present on Admission: No VTE Pharm Prophylaxis ordered?: Yes Patient Problems: Active and Suspected Problems Atypical chest pain (Acute) Non-STEMI (non-ST elevated myocardial infarction) (Acute) - Physical Exam General: Alert, Oriented x3, Cooperative HEENT: Atraumatic, PERRLA, EOMI, Normocephalic Neck: Supple, No JVD, Negative Carotid Bruits Lungs: Clear to auscultation, Normal air movement, No rhonchi, No wheeze, No rales Cardiovascular: Regular rate, Regular Rhythm, Normal S1, Normal S2, No murmurs Abdomen: Bowel Sounds Present, Soft, Non Tender, Non-Distended Extremities: No edema, Capillary Refill Less than 3 Seconds Skin: No rashes, No breakdown Musculoskeletal: No Tenderness to Palpation of Joints or Extremities, Arthritic Changes Lymphatic: No Cervical, Supraclavicular, or Inguinal Adenopathy Neurological: Cranial nerves II-XII grossly intact, Deep Tendon Reflexes 2+/4 and Symmetrical, Neuro grossly intact, Motor Exam 5/5 strength throughout Psych/Mental Status: Normal Affect, Appropriate Vital Signs Temp Pulse Resp BP Pulse Ox 98 F 62 15 121/73 H 98 04/18/18 12:24 04/18/18 12:24 04/18/18 12:24 04/18/18 12:24 04/18/18 12:24 Oxygen Flow Rate (L/min) 2 Oxygen Delivery Method Room Air Weight: 143 lb 1.28 oz Body Mass Index (BMI) 24.5 Laboratory Tests Past 24 Hrs Assessment/Plan All Active Problems Atypical chest pain (Acute) Non-STEMI (non-ST elevated myocardial infarction) (Acute) The patient is a 62 year old F with no significant past medical history came to ED after she had chest pressure since yesterday evening while going up and down the stairs. She denies associated shortness of breath but was mildly diaphoretic, nauseated. Chest pressure radiated to left jaw. In ED, EKG showed nonspecific ST-T changes but troponin was elevated. Troponin 3.04 and 2.24. Entry Level Project Coordinator was called from the ER and patient was taken to Manager Cable directly. 1. Non-STEMI: Patient underwent cardiac cath was found to have Takotsubo cardiomyopathy. Normal coronary arteries. EF 45%. Apical akinesis. Fasting profile shows total cholesterol 246, LDL 130, HDL 86, VLDL 30. TSH 2.57. On aspirin, low-dose lisinopril and metoprolol 25 twice daily. 2. Nicotine use, cigarette smoking: On nicotine patch. Smoking cessation advised. 3. DVT prophylaxis: On heparin 500 subcutaneous twice daily Diagnosis, management plan and follow-up discussed with the patient and her present in the room This note was generated with [employer] dictation software. Every effort was made to ensure accuracy, however computerized mapping supervisor mistakes may persist. Code Visit Inpatient Trino AND M: [id number] Init Hosp L3 04/18/18 1524 <Electronically signed by Reji Prakash MD> Date Reji Prakash MD Cosigner Signature: Date (if applicable) CC: Reji Prakash MD; Modesto Jeffries MD Signed TROPONIN-I Collected: 04/18/2018 Status: F Source: [place] 1:05 PM [facility] Order Comment: 'TROP' Serial specimen #1, #2 or #3: 2 TYPE CODE TESTS RESULT OUT OF RANGE REFERENCE UNITS LAB L501.4010 <0.045 ng/mL High alert 2.240 TROPONIN-I Result Comment: Critical Result(s) Called at: 13:35:58 04/18/2018 by: Sachi Lamas TROPONIN-I EXPECTED VALUES <0.045 Negative 0.045 - 0.590 Consistent with Cardiac Damage > OR = 0.600 Critical Value Not every elevated troponin is indicative of DC. These values should be used with clinical judgement in examining the patient's clinical picture for diagnosis. To establish a diagnosis of DC versus myocardial injury, there must be a demonstrated rise and/or fall in the troponin values, in addition to ischemic symptoms, EKG changes, new regional wall motion abnormality, and/or angiographical evidence. PLEASE NOTE: REFERENCE RANGES EDITED 17 Performed By: #### L501.4010 #### [facility] [address] [place], [address] CHEST 1 VIEW Observed: 04/18/2018 Status: F Source: [place] (PORTABLE) 7:32 AM [facility] Imaging Services [address] [place] [address] Chest 1 View (Portable) MR#: [id number] Acct: [id number] Name: MARI EDEN Rep #: [id number] : 1955 F 62 From: Jennifer Mariano MD PCP: Modesto Jeffries MD Status: REG ER Study: Chest 1 View (Portable) Date of Exam: 04/18/18 Exam# [id number] Ordering Dr: Prakash Mars MD STUDY: X-RAY CHEST REASON FOR EXAM: Female, 62 years old. Chest pain. TECHNIQUE: Single AP portable view of the chest. COMPARISON: May 28, 2015 FINDINGS: Cardiac monitoring leads are present. The lungs are clear and hyperexpanded. There is no demonstrated pleural abnormality. There is borderline cardiomegaly. Normal mediastinum and aydin. Normal visualized pulmonary arteries. There is atherosclerotic tortuosity of the aortic arch and descending thoracic aorta. There is demineralization of the osseous structures. There are mild degenerative changes of thoracic spine. There is deformity of the posterior right-sided rib probably related to old rib fracture. There is no demonstrated abnormality of the visualized soft tissue structures of the upper abdomen. RAD/Chest 1 View (Portable) IMPRESSION: No radiographic evidence of acute cardiopulmonary disease. Electronically Signed: Jennifer Mariano MD at 8:08 EST , Service support , CC: Prakash Mars MD; Modesto Jeffries MD Swimming Pool Maintenance: Signed CBC W/DIFF, AUTOMATED Collected: 04/18/2018 Status: F Source: [place] 7:00 AM [facility] TYPE CODE TESTS RESULT OUT OF RANGE REFERENCE UNITS LAB L100.1000 4.4-11.0 K/mm3 Low WBC 4.2 LAB L100.1200 4.2-5.4 M/mm3 Normal RBC 4.83 LAB L100.1300 12.0-15.0 g/dl High HGB 15.5 LAB L100.1400 37-47 % High HCT 47.8 LAB L100.1500 81-99 fL Normal MCV 99.0 LAB L100.1600 27.0-32.0 pg High MCH 32.1 LAB L100.1700 32-36 g/gl Normal MCHC 32.4 LAB L100.1810 11.6-14.6 % Normal RDW CV 12.8 LAB L100.1820 35.1-43.9 fl High RDW SD 46.5 LAB L100.1900 150-450 K/mm3 Normal PLT 240 LAB L100.2000 6.2-12.0 fl High MPV 12.5 LAB L100.2100 47-70 % Low NEUT% 14.8 LAB L100.2200 19-41 % High LY% 62.2 LAB L100.2300 0-10 % High MONO% 17.8 LAB L100.2400 0-5 % Normal EO% 4.0 LAB L100.2500 0-1 % High BASO% 1.2 LAB L100.2550 0.0-0.9 % Normal IM GRAN % 0.000 Result Comment: IG% - Immature Granulocytes (promyelocytes, myelocytes and metamyelocytes) > 1% indicates that a LEFT SHIFT is Present. LAB L100.2620 2.0-7.7 X10 3/uL Low Absolute Neut 0.6 LAB L100.2720 0.83-4.51 X10 3/ul Normal Absolute Lymph 2.62 LAB L100.4500 Normal SMEAR COMMENT COMMENT Result Comment: SLIDE SCANNED - NEUTROPENIA. Performed By: #### L100.0100 #### [facility] [address] [place], [place], [address] BASIC METABOLIC Collected: 04/18/2018 Status: F Source: [place] [facility] 7:00 AM [facility] TYPE CODE TESTS RESULT OUT OF RANGE REFERENCE UNITS LAB L501.0100 74-106 mg/dL High GLU 114 Result Comment: Fasting Glucose result from 100 to 125 mg/dL suggests IMPAIRED HOMEOSTASIS per A.D.A. criteria. Please note revised GLUCOSE reference range effective 2017. LAB L501.1000 7-18 mg/dL High BUN 23 LAB L501.1100 0.55-1.02 mg/dL High CREAT,SERUM 1.16 Result Comment: The validity of the calculated GFR AND GFRAA in patients over 70 years has not been determined. Clinical correlation is essential. LAB L501.1110 >60 mL/min Low EST GFR 50 Result Comment: Non- GFR Calc LAB L501.1115 >60 mL/min Normal EST GFR - AA 61 Result Comment: GFR Calc LAB L501.1255 ml/min Normal Estimated CRCL 43.42 LAB L501.1300 10-20 RATIO Normal BUN/CRE 19.8 LAB L501.2200 8.5-10 mg/dL Normal .1 CA 9.3 LAB L501.5300 136-14 mmol/L Normal 5 NA 138 LAB L501.5600 3.5-5. mmol/L Normal 1 K 3.8 LAB L501.5900 98-107 mmol/L Normal CL 103 LAB L501.6100 21.0-3 mmol/L Normal 2.0 CO2 27.0 LAB L501.6200 5-15 Normal GAP 8 Performed By: #### L500.2500, L501.4010 #### [facility] [address] [place], [place], [address] TROPONIN-I Collected: 04/18/2018 Status: F Source: [place] 7:00 AM [facility] TYPE CODE TESTS RESULT OUT OF RANGE REFERENCE UNITS LAB L501.4010 <0.045 ng/mL High alert 3.040 TROPONIN-I Result Comment: Critical Result(s) Called at: 08:15:16 04/18/2018 by: [employer] TROPONIN-I EXPECTED VALUES <0.045 Negative 0.045 - 0.590 Consistent with Cardiac Damage > OR = 0.600 Critical Value Not every elevated troponin is indicative of DC. These values should be used with clinical judgement in examining the patient's clinical picture for diagnosis. To establish a diagnosis of DC versus myocardial injury, there must be a demonstrated rise and/or fall in the troponin values, in addition to ischemic symptoms, EKG changes, new regional wall motion abnormality, and/or angiographical evidence. PLEASE NOTE: REFERENCE RANGES EDITED 17 Performed By: #### L500.2500, L501.4010 #### [facility] [address] [place], [address] LIPID PROFILE Collected: 04/18/2018 Status: F Source: [place] 7:00 AM [facility] TYPE CODE TESTS RESULT OUT OF RANGE REFERENCE UNITS LAB L501.4900 200 mg/dL High CHOL 246 Result Comment: <200 mg/dL Desirable 200-240 mg/dL Borderline >240 mg/dL High Risk LAB L501.5000 mg/dL Normal TRIG 149 Result Comment: The drugs N-Acetylcysteine and Metamizole may falsely depress this assay. Serum Triglycerides Reference Interval Normal <150 mg/dL Borderline high 150 - 199 mg/dL High 200 - 499 mg/dL Very High > or = 500 mg/dL LAB L501.6400 mg/dL Normal HDL 86 Result Comment: The drugs N-Acetylcysteine and Metamizole may falsely depress this assay. Reference Range HDL <40 mg/dL Low HDL Cholesterol HDL >or= 60 mg/dL High HDL Cholesterol LAB L501.6500 0-130 mg/dL Normal LDL 130 LAB L501.6600 5-40 mg/dL Normal VLDL 30 Performed By: #### L500.4100, L501.9520 #### [facility] [address] [facility] [place], [address] THYROID STIM HORMONE Collected: 04/18/2018 Status: F Source: [place] (TSH) 7:00 AM [facility] TYPE CODE TESTS RESULT OUT OF RANGE REFERENCE UNITS LAB L501.9520 0.358-3.74 uIU/mL Normal TSH 2.57 Performed By: #### L500.4100, L501.9520 #### [facility] [address] [facility] [place], [address] Observed: 04/12/2018 Status: F Source: [place]K CULTURE, NOSE 4:00 PM [facility] Gram Stain Gram Stain No organisms seen Nasoph. Cult Possible skin contamination, further Identification and sensitivity will be performed only by physician's request. No Haemophilus, Streptococcus pneumoniae, beta-hemolytic Streptococcus or Staphylococcus aureus isolated. ORGANISM 1: Coag Negative Staph Amount Growth Rare Performed By: #### M100.0900 #### [facility] [address] [place], [address] PROGRESS Observed: 12/09/2017 Status: COMPLETED Source: [place] 5:11 PM [facility] REPOSITORY HNO ID: [id number] Author: Elias Silva Service: (none) Author Type: Physician Type: Progress Notes Filed: 12/09/2017 5:28 PM Note Text: Patient presents with: Sinusitis HPI: Right nostril has been feeling crusty and sore for 2 weeks. She wonders if it is related to her new work location. Positive symptoms: starting to get right maxillary pressure for a few days, AM green discharge, Negative symptoms: Post nasal drainage, Sore throat, Earache, Rhinorrhea, Fever, Chills, OTC: vasoline, saline? nasal spray MEDICATIONS: Current Outpatient Prescriptions: sertraline (ZOLOFT) 100 mg tablet CALCIUM CARBONATE/VITAMIN D3 (CALCIUM + D ORAL) Take by mouth. multivitamin tablet Take 1 tablet by mouth once daily. FOLIC ACID 1 MG TAB Take one(1) tablet daily. benzonatate (TESSALON PERLE) 100 mg capsule Take 1-2 capsules by mouth three times daily as needed. albuterol HFA (PROAIR HFA) 90 mcg/actuation inhaler Inhale 2 Puffs as instructed every 4 hours as needed. ofloxacin (FLOXIN) 0.3 % otic solution Use 5 Drops in both ears once daily. albuterol HFA (VENTOLIN HFA) 90 mcg/actuation inhaler Inhale 2 Puffs as instructed every 4 hours as needed for Wheezing/Shortness of Breath. codeine-guaiFENesin (ROBITUSSIN AC) 10-100 mg/5 mL syrup Take 5-10 mL by mouth four times daily as needed for Cough. May cause drowsiness. ZOLOFT 25 MG TAB Take one(1) tablet daily. No current facility-administered medications for this visit. ALLERGIES: ALLERGIES Allergen Reactions - Adhesive Tape (Xenia* Itching AND rash - Clams Diarrhea also vomiting VITALS: BP 130/90 Pulse 76 Temp 36.8 ?C (98.2 ?F) (Left Tympanic) Resp 18 Wt 63.5 kg (140 lb) BMI 24.03 kg/m? PHYSICAL EXAM: GEN: Pleasant, in no acute distress. HEENT: PERRL, EOMI, conjunctiva clear Ears: canals clear, TMs without erythema, bulge, or effusion Nose: Raw distal right nasal septum, no discharge or turbinate edema Sinuses: non-tender frontal sinus, pressure over maxillary sinus Throat: moist mucous membranes, no erythema, no exudate Neck: supple, no thyromegaly, no lymphadenopathy HEART: regular rate and rhythm, no murmurs LUNGS: clear to auscultation, no wheezes or crackles, no increased WOB ASSESSMENT/PLAN: 1. Sore in nostril - ICD9: 478.19, ICD10: J34.89 - Will begin treatment with - MUPIROCIN 2 % TOPICAL OINTMENT Elias Silva MD CNOV Observed: 12/09/2017 Status: COMPLETED Source: [place] 5:00 PM [facility] REPOSITORY Office Visit (WSTR) MARI EDEN ([id number]) 1955 F Date Time Provider Department 12/09/17 5:00 PM ELIAS SILVA [facility] During your visit today, we recorded the following information about you: Temperature Pulse Respiration Blood pressure 98.2 degrees 76/minute 18/minute 130/90 Weight 63.5 kg Elias Silva MD 12/09/2017 5:28 PM Signed Patient presents with: Sinusitis HPI: Right nostril has been feeling crusty and sore for 2 weeks. She wonders if it is related to her new work location. Positive symptoms: starting to get right maxillary pressure for a few days, AM green discharge, Negative symptoms: Post nasal drainage, Sore throat, Earache, Rhinorrhea, Fever, Chills, OTC: vasoline, saline? nasal spray MEDICATIONS: Current Outpatient Prescriptions: sertraline (ZOLOFT) 100 mg tablet CALCIUM CARBONATE/VITAMIN D3 (CALCIUM + D ORAL) Take by mouth. multivitamin tablet Take 1 tablet by mouth once daily. FOLIC ACID 1 MG TAB Take one(1) tablet daily. benzonatate (TESSALON PERLE) 100 mg capsule Take 1-2 capsules by mouth three times daily as needed. albuterol HFA (PROAIR HFA) 90 mcg/actuation inhaler Inhale 2 Puffs as instructed every 4 hours as needed. ofloxacin (FLOXIN) 0.3 % otic solution Use 5 Drops in both ears once daily. albuterol HFA (VENTOLIN HFA) 90 mcg/actuation inhaler Inhale 2 Puffs as instructed every 4 hours as needed for Wheezing/Shortness of Breath. codeine-guaiFENesin (ROBITUSSIN AC) 10-100 mg/5 mL syrup Take 5-10 mL by mouth four times daily as needed for Cough. May cause drowsiness. ZOLOFT 25 MG TAB Take one(1) tablet daily. No current facility-administered medications for this visit. ALLERGIES: ALLERGIES Allergen Reactions - Adhesive Tape (Xenia* Itching AND rash - Clams Diarrhea also vomiting VITALS: BP 130/90 Pulse 76 Temp 36.8 ?C (98.2 ?F) (Left Tympanic) Resp 18 Wt 63.5 kg (140 lb) BMI 24.03 kg/m? PHYSICAL EXAM: GEN: Pleasant, in no acute distress. HEENT: PERRL, EOMI, conjunctiva clear Ears: canals clear, TMs without erythema, bulge, or effusion Nose: Raw distal right nasal septum, no discharge or turbinate edema Sinuses: non-tender frontal sinus, pressure over maxillary sinus Throat: moist mucous membranes, no erythema, no exudate Neck: supple, no thyromegaly, no lymphadenopathy HEART: regular rate and rhythm, no murmurs LUNGS: clear to auscultation, no wheezes or crackles, no increased WOB ASSESSMENT/PLAN: 1. Sore in nostril - ICD9: 478.19, ICD10: J34.89 - Will begin treatment with - MUPIROCIN 2 % TOPICAL OINTMENT Elias Silva MD Referring Provider: SELF [200] Allergies As of Date: 12/09/2017 Noted Allergy Reaction ADHESIVE TAPE (ROSINS) 03/12/2009 9 - Itching Comments: AND rash CLAMS 07/28/2005 6 - Diarrhea Comments: also vomiting Date Reviewed: 12/09/2017 Reviewed by: Catalina Emery Ma - Fully Assessed Reason for Visit: Sinusitis [127] Primary Visit Diagnosis:Sore in nostril [J34.89] Order(s):mupirocin (BACTROBAN) 2 % ointmentApply 1 application to affected area twice daily for 7 days. Location: nostrilDisp: 1 TubeRfl: 0 Prescriptions as of 12/09/2017 Sig: SERTRALINE 100 MG TABLET CALCIUM + D ORAL Take by mouth. MULTIVITAMIN TABLET Take 1 tablet by mouth once d* FOLIC ACID 1 MG TABLET Take one(1) tablet daily. MUPIROCIN 2 % TOPICAL OINTMENT Apply 1 application to affect* BENZONATATE 100 MG CAPSULE Take 1-2 capsules by mouth th* ALBUTEROL SULFATE HFA 90 MCG/* Inhale 2 Puffs as instructed * OFLOXACIN 0.3 % EAR DROPS Use 5 Drops in both ears once* ALBUTEROL SULFATE HFA 90 MCG/* Inhale 2 Puffs as instructed * CODEINE 10 MG-GUAIFENESIN 100* Take 5-10 mL by mouth four ti* ZOLOFT 25 MG TABLET Take one(1) tablet daily. 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 Prescriptions ordered this encounter Disp Refills Start End MUPIROCIN 2 % TOPICAL OINTMENT 1 Tu* 0 12/09/2017 12/16/2017 Route: TOPICAL Sig: Apply 1 application to affected area twice daily for 7 days. Location: nostril Encounter Status:Closed by ELIAS SILVA MD on 12/09/17 EMERGENCY DEPARTMENT Observed: 08/30/2017 Status: F Source: [place] SUMMARY 3:57 PM [facility] [place] [facility] Medical Records Department [address] [place] [address] Emergency Department Summary 08/30/17 1552 MR#: [id number] Acct: [id number] Name: MARI EDEN Rep #: [id number] : 1955 62 From: Elías Ocampo MD PCP: Modesto Jeffries Status: PRE ER - ER Visit Summary Date of Service: 08/30/17 Chief Complaint: The right wrist secondary to fall yesterday History of Present Illness: The patient is a 62 F who is right- handed presents with injury to her right wrist. She fell onto her outstretched right upper extremity. She localizes the pain over the radius and dorsal surface of the right wrist. Movement exacerbates her pain. She denies paresthesia, anesthesia moderates. Denies prior injury. She denies any pain in her digits, elbow or shoulder. Physical Examination: Vital signs are noted. There is swelling of the wrist. There is pain abrasion over the distal radius radial side. She has pain to palpation over the extensor tendon in the first compartment. She has a positive Kristie test. There is no pain the patient the anatomical snuffbox or axial loading the thumb. Median, radial and ulnar function intact. Radial pulses palpable. There is no pain the patient of the phalanges or metacarpal bones. There is no subungual hematoma noted. Cap refill is normal. Sensation is normal. There is no pain the patient over the lateral medial epicondyle olecranon process. Test Results: Three-view x-ray was ordered per nursing staff per protocol. The x-ray was interpreted by me as negative for fracture. There is no evidence of a scapholunate dissociation. There is no volar fat pad noted. Emergency Department Course and Treatment: Anti-inflammatories since no contra indication thumb spica splint Treatment Plan: Thumb spica splint for wrist sprain extensor tendon first compartment, De Quervain tenosynovitis Disposition: Discharged to home Impression: De Quervain's tenosynovitis right wrist initial encounter This note was generated with [employer]asc[employer] dictation software. It may contain incorrect words, spelling, and punctuation that were not noted in review of the chart prior to signing ED Disposition - Plan for ED Patient: Disposition: Home or Assisted Living Chief Complaint: Upper Extremity Injury Instructions: ED De Quervain Tenosynovitis Prescriptions: Naproxen [Naprosyn] 500 mg PO BID #14 tab Referrals: Modesto Jeffries MD [Primary Care Provider] - 1 Week if not improving What to do if you have Problems For any increased pain, shortness of breath, bleeding, nausea or vomiting, chest pain, or any unexpected problems, contact your Primary Care Provider. Call [facility] ([phone]) or report to the closest Emergency Room. Call 911 if necessary. 08/30/17 4196 <Electronically signed by Elías Ocampo MD> Date Elías Ocampo MD Cosigner Signature (If Indicated): Date CC: Modesto Jeffries WRIST MIN 3 VIEWS Observed: 08/30/2017 Status: F Source: [place] 3:38 PM [facility] [place] [facility] Imaging Services [address] [facility] [place] [address] Wrist min 3 Views MR#: [id number] Acct: [id number] Name: SHERRY EDENDian Tompkins Rep #: [id number] : 1955 F 62 From: Darci Porter MD PCP: Modesto Jeffries Status: DEP ER Study: Wrist min 3 Views Date of Exam: 08/30/17 Exam# [id number] Ordering Dr: Elías Ocampo MD STUDY: X-RAY - RIGHT WRIST REASON FOR EXAM: Female, 62 years old. Trauma TECHNIQUE: 3 view(s) of the wrist were obtained. COMPARISON: None. FINDINGS: Normal visualized distal radius and ulna. Normal radiocarpal articulation. Normal distal radioulnar articulation. Normal carpal bones. Normal carpal articulations. Mild arthrosis of the carpometacarpal articulation of the thumb. Normal second through fifth carpometacarpal articulations. Normal visualized metacarpal bones. The soft tissue structures are unremarkable. RAD/Wrist min 3 Views IMPRESSION: Mild degenerative changes. No evidence for acute fracture Electronically Signed: Darci Porter MD at 17:10 EDT , Service support , CC: Modesto Jeffries; Elías Ocampo MD Swimming Pool Maintenance: Signed RE-EVALUATION - PT (1) Observed: 08/09/2017 Status: F Source: [place] 5:34 PM [facility] [place] [facility] Physical [facility] [address] [place] [address]. [address] [place] [address] Fax REEVALUATION / MEDICARE RECERTIFICATION PHYSICAL THERAPY MR#: [id number] Acct: [id number] Name: MARI EDEN Rep #: [id number] : 1955 62 From: Aurelia Valencia PT, Cert. MDT Referring Dr.: Iglesia Bass MD Status: REG RCR Insurance: [employer] SELF PAY INSURANCE Iglesia Bass, , It has been my pleasure to treat MARI EDEN over the last 8 visits for RIGHT SHOULDER NON-DISPLACED FX OF GREATER TUBEROSITY OF HUMERUS.. Please see the progress note below for an update on the physical therapy plan of care! Subjective: PATIENT REPORTS SHE THINKS SHE WANTS TO CANCEL THE REST OF HER THERAPY BECAUSE SHE CAN MOVE HER ARM A LOT MORE NOW. SHE REPORTS IT IS SUMMER AND SHE IS BUSY. 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 SHE ALSO REPORTS IT GETS SORE THE DAY AFTER THERAPY. SHE STATES SHE IS HAPPY WITH HOW BAL AND JOSE TREAT HER AND SHE FEELS THEY WOULD EASE UP IF SHE WANTED THEM TO. SHE ADMITS THAT SHE DOES NOT DO HER EX'S AT HOME EVERYDAY - MAYBE EVERY OTHER DAY. SHE ALSO REPORTS SHE HAS BEEN USING HER ARM TOO AND THEN SHE FEELS GUILTY BECAUSE SHE KNOWS SHE ISN'T SUPPOSED TO BE. 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 SHE REPORTS SHE STILL GETS A CATCH IN HER SHOULDER WHEN STRETCHING IT BUT THE CATCH IS GETTING BETTER. SHE HAS A FOLLOW UP APPOINTMENT WITH HER DOCTOR 08/23/17. SHE REPORTS HE TOLD HER NOT TO LIFT WITH HER ARM YET BECAUSE HE IS AFRAID SHE MIGHT TEAR IT. STATES HE TOLD HER HE MIGHT DO A CAT SCAN NEXT VISIT. Objective/Function: UPON EXAM, PATIENT STILL HAS SIGNIFICANT DECREASED RIGHT SHOULDER PROM AND AROM. SEATED ACTIVE FLEX = 110 DEG, ABD = 70 DEG. SUPIINE PROM: FLEX 125 DEG, ABD 78 DEG, ER/IR 40/45 DEG WITH 45 DEG ABD. SHE HAS PAIN WITH ROM TESTING ALL PLANES. Plan Plan: I STRONGLY RECOMMENDED CONTINUED PT PER POC. SHE IS RELUCTANT BUT AGREED TO CONTINUE PT 1X/WEEK. WE WILL CONTINUE WITH ROM - AND NO RESISTANCE YET UNTIL OK'D BY . Goals Goal 1:: DECREASE C/O RIGHT UE PAIN Goal Time Frame: 4-6 Weeks Goal Progress: Progressing Goal 2:: IMPROVE LIFTING, REACHING, PUSHING, PULLING, ADL, WORK, RECREATIONAL AND SLEEP FUCNTION. Goal Time Frame: 4-6 Weeks Goal Progress: Progressing Goal 3:: INDEP HEP Goal Time Frame: 4-6 Weeks Goal Progress: Progressing Anticipated Interventions Patient/Client Instruction: Educate patient on: Condition, Plan of Care, Risk Factors, Benefits of Fitness Program For the Purpose of:: To improve self management Therapeutic Exercise to Include: Strength training, Body mechanics, Postural training, Passive ROM, Active ROM, Scapular Strength/Stabilization For the Purpose of:: To decrease pain, To increase ROM, To improve muscle performance and motor function, To improve ability to perform ADL's, To improve ability of physical actions for home/community/work/leisure Manual Therapy Techniques to Include: Passive ROM For the Purpose of:: To increase ROM Cryotherapy (ice pack, ice massage): Yes Thermo therapy (hot pack): Yes For the Purpose of:: To decrease pain, To decrease swelling/inflammation, To increase ROM Please do not hesitate to contact me at [phone] by phone or if you have questions or concerns regarding this new plan of care! Sincerely, Aurelia Valencia <Electronically signed by Aurelia Valencia PT, Cert. MDT> 08/09/17 1734 CC: Iglesia Bass MD; Modesto Jeffries ROQUE Signed For Medicare only, by signing this I certify the plan of care. Physicians Signature Date EMERGENCY DEPARTMENT Observed: 07/14/2017 Status: F Source: [place] SUMMARY 3:07 AM [facility] [place] [facility] Medical Records Department [address] [facility] [place] [address] Emergency Department Summary 07/13/17 2200 MR#: [id number] Acct: [id number] Name: MARI EDEN Rep #: [id number] : 1955 62 From: Coreen Jones MD PCP: Modesto Jeffries Status: DEP ER - ER Visit Summary Date of Service: 07/13/17 Chief Complaint: Right upper extremity injury History of Present Illness: The patient is a 62 F who has a right shoulder fracture sustained approximately 6 weeks ago. Patient has been in a sling. Tonight she was out with her dog when she got pulled by the lesion fell onto her right shoulder. Complaining of worsening right shoulder pain and shooting pain in her right hand. She did not lose consciousness. Physical Examination: Vital signs unremarkable. Patient sitting upright in bed. She is uncomfortable but no acute distress. Head neck examination reveals a very small abrasion to the nasal bridge. There is no bony tenderness. No focal C-spine tenderness. Heart is regular rate and rhythm. Lung sounds are clear. Abdomen is soft nontender. Right upper extremity examination reveals no tenderness of the clavicle. She has diffuse tenderness around the right humeral head. There is no evidence of dislocation. There is no tenderness of the elbow. She does have diffuse tenderness of the right hand without deformity. Pain is worse over the index and middle finger phalanges and metacarpals. She has good cap refill and sensation distally. Test Results: Right hand x-rays reveal no fracture. Right shoulder x-ray reveals a healing nondisplaced fracture the proximal humerus. Emergency Department Course and Treatment: Patient was given [place] here for pain. On repeat evaluation she is resting much more comfortably. Test results were discussed with patient and at bedside. She will remain in her sling and follow- up with her orthopedist at [facility]. She really has pain medication at home that she can use. Treatment Plan: [] Disposition: Discharge Impression: Right shoulder contusion with healing proximal humerus fracture This note was generated with TaleSpringation software. It may contain incorrect words, spelling, and punctuation that were not noted in review of the chart prior to signing ED Disposition - Plan for ED Patient: Disposition: Home or Assisted Living Chief Complaint: Upper Extremity Injury Instructions: ED Contusion Upper Ext Referrals: Modesto Jeffries MD [Primary Care Provider] - What to do if you have Problems For any increased pain, shortness of breath, bleeding, nausea or vomiting, chest pain, or any unexpected problems, contact your Primary Care Provider. Call [facility] ([phone]) or report to the closest Emergency Room. Call 911 if necessary. 07/14/17 0307 <Electronically signed by Coreen Jones MD> Date Coreen Jones MD Cosigner Signature (If Indicated): Date CC: Modesto Jeffries DISCHARGE INSTRUCTION Observed: 07/13/2017 Status: F Source: [place] 10:01 PM [facility] [place] [facility] Medical Records Department [address] [place] [address] Discharge Instruction 07/13/170 MR#: [id number] Acct: [id number] Name: MARI EDEN Rep #: [id number] : 1955 62 From: Coreen Jones MD PCP: Modesto Jeffries Status: REG ER ED Disposition - Plan for ED Patient: Disposition: Home or Assisted Living Chief Complaint: Upper Extremity Injury Instructions: ED Contusion Upper Ext Referrals: Modesto Jeffries MD [Primary Care Provider] - What to do if you have Problems For any increased pain, shortness of breath, bleeding, nausea or vomiting, chest pain, or any unexpected problems, contact your Primary Care Provider. Call [facility] ([phone]) or report to the closest Emergency Room. Call 911 if necessary. 07/13/17 2201 <Electronically signed by Coreen Jones MD> Date Coreen Jones MD Cosigner Signature (If Indicated): Date CC: Modesto Jeffries HAND MIN 3 VIEWS Observed: 07/13/2017 Status: F Source: [place] 8:52 PM [facility] [place] [facility] Imaging Services [address] [place] [address] Hand Min 3 Views MR#: [id number] Acct: [id number] Name: MARI EDEN Rep #: [id number] : 1955 F 62 From: Lio Pullaim MD PCP: Modesto Jeffries Status: REG ER Study: Hand Min 3 Views Date of Exam: 07/13/17 Exam# [id number] Ordering Dr: Coreen Jones MD STUDY: X-RAY - RIGHT HAND REASON FOR EXAM: Female, 62 years old. Injury, pain TECHNIQUE: 3 view(s) of the hand. COMPARISON: None. FINDINGS: There is osteoarthritis at the basal joint of the thumb. Normal radiocarpal articulation. Normal distal radioulnar joint. Normal visualized carpal bones. Normal carpal articulations Normal carpometacarpal articulation of the thumb. Normal second through fifth carpometacarpal joints. Normal metacarpi. Normal metacarpophalangeal joints of the second through fifth fingers. Normal proximal and distal interphalangeal joints of the second through fifth fingers. Normal phalanges of the second through fifth fingers. The soft tissue structures are unremarkable. RAD/Hand Min 3 Views IMPRESSION: No fracture Electronically Signed: Lio Pulliam MD at 21:26 EDT Tel , Service support , CC: Coreen Jones MD; Modesto Jeffries Swimming Pool Maintenance: Signed SHOULDER MIN 2 VIEWS Observed: 07/13/2017 Status: F Source: [place] 8:52 PM [facility] [place] [facility] Imaging Services [address] [place] [address] Shoulder min 2 Views MR#: [id number] Acct: [id number] Name: MARI EDEN Rep #: [id number] : 1955 F 62 From: Lio Pulliam MD PCP: Modesto Jeffries Status: REG ER Study: Shoulder min 2 Views Date of Exam: 07/13/17 Exam# [id number] Ordering Dr: Coreen Jones MD STUDY: X-RAY - RIGHT SHOULDER REASON FOR EXAM: Female, 62 years old. Pain, injury TECHNIQUE: 4 view(s) of the shoulder. COMPARISON: 05/30/2017 FINDINGS: There is nondisplaced fracture at the proximal humerus with evidence of healing compared to prior examination. The glenohumeral joint is intact. Normal glenohumeral articulation. Normal acromioclavicular joint. Normal acromion. The soft tissue structures are unremarkable. Normal visualized pulmonary apex. RAD/Shoulder min 2 Views IMPRESSION: Healing nondisplaced fracture, proximal humerus Electronically Signed: Lio Pulliam MD at 21:33 EDT Tel , Service support , CC: Coreen Jones MD; Modesto Jeffries Swimming Pool Maintenance: Signed INITAL EVALUATION (1) Observed: 07/13/2017 Status: F Source: [place] - PT 1:36 PM [facility] [place] [facility] Physical Therapy [facility] [address] [place], [place] [address] Fax REHABILITATION SERVICES INITIAL EVALUATION MR#: [id number] Acct: [id number] Name: MARI EDEN Rep #: [id number] : 1955 62 From: Aurelia Valencia PT, Cert. MDT Referring Dr.: Iglesia Bass MD Status: REG RCR Insurance: [employer] SELF PAY INSURANCE Patient's Visit Information MARI EDEN is a 62 year old F referred to Physical [facility] a diagnosis of RIGHT SHOULDER NON-DISPLACED FX OF GREATER TUBEROSITY OF HUMERUS.. Date of Evaluation: 07/13/17 Physical Therapist: Aurelia Valencia - Visit Plan Frequency: 2-3x /Week Duration: 4-6 Weeks Plan: POSTURE CORRECTION/STRENGTHENING, INSTRUCTION IN APPROPRIATE BODY MECHANICS AND ACTIVITY MODIFICATIONS. [place] UE ROM, STRETCHING AND STRENGTHENING STARTING WITH PASSIVE ROM FOR 2 WEEKS THEN BEGIN AROM. HEP INSTRUCTION. - Subjective Subjective: Diagnosis: CLOSED NON-DISPLACED FX OF GREATER TUBEROSITY OF THE RIGHT HUMERUS. 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 Disability: NO. Present symptoms: RIGHT SHOULDER AND UPPER ARM PAIN. NO PAIN, NUMBNESS OR TINGLING BELOW THE ELBOW. Present since: 05/30/17. Pain Scale: WORST 9/10, LEAST 0/10. Currently: 0/10. Commenced as a result of: FALL. Symptoms at onset: RIGHT SHOULDER/ARM. Worse: TRYING TO REACH. Better: RESTING IT. Disturbed sleep: YES. Previous history/Previous treatment: UNREMARKABLE. HISTORY OF NECK ARTHRITIS. Dizziness: NO. Tinnitis: CHRONIC. Nausea: NO. Difficulty Swollowing: NO. Gait: NORMAL. Accidents: FX LEFT WRIST LAST YEAR - ORIF. FROM FALL. Unexplained weight loss: NO. Imaging: YES - ED AND THEN AT [facility]. PATIENT REPORTS SHE BROKE HER ARM IN 3 PLACES. NO MRI. PMH: DEPRESSION. NO CANCER. NO CVA. NOT DIABETIC. NO HEART DZ. Recent major surgery: 2017 ORIF LEFT WRIST. OTHER: PATIENT REPORTS THAT SHE ADMITS SHE HAS BEEN USING HER RIGHT ARM OUT OF THE SLING. PATIENT IS RIGHT HAND DOMINANT. - Objective Sitting Posture: POOR. Other Observations: INDEP GAIT INTO PT WITH NO GROSS DEVIATIONS NOTED. PATIENT IS ABLE TO INDEP'LY DON AND DOFF SLING. Motor deficit: LEFT UE WFL. RIGHT NT. Sensory deficit: INTACT. ROM deficit: PATIENT IS VERY GUARDED AND PAINFUL WITH PROM TESTING TODAY. IN SUPINE, RIGHT SHOULDER PROM INTO FLEX = 65 DEG, ABD 45 DEG, IR = 30 DEG, ER = 10 DEG. ROTATION TESTED WITH 40 DEG ABD. RIGHT ELBOW, FOREARM, WRIST AND HAND AROM IS FULL AND DOES NOT PROVOKE RIGHT SHOULDER PAIN. Cervical Mvmt Loss: Flex: NIL. Pro: NIL. Ext: MOD. Ret: RD. RSB: MOD. LSB: MOD. R Rot: MOD. L Rot: MOD. PATIENT HAS C/O STIFFNESS WITH CERVICAL ROM TESTING ALL PLANES AND REPORTS IT HAS BEEN THIS WAY FOR YEARS. Postural strength: POOR. TREATMENT: INSTRUCTED PATIENT IN CW AND CCW PASSIVE PENDULUM EX X [address] HOME INSTRUCTION TO CONTINUE PENDULEM EX 3 TIMES A DAY ALONG WITH AROM OF ELBOW, FOREARM, WRIST AND HAND. PATIENT DEMO'S GOOD TECHNIQUE WITH AND TOLERANCE TO ALL HOME EX'S. - Goals Goal 1:: DECREASE C/O RIGHT UE PAIN Goal Time Frame: 4-6 Weeks Goal 2:: IMPROVE LIFTING, REACHING, PUSHING, PULLING, ADL, WORK, RECREATIONAL AND SLEEP FUCNTION. Goal Time Frame: 4-6 Weeks Goal 3:: INDEP HEP Goal Time Frame: 4-6 Weeks - Rehabilitation Potential Rehabilitation Potential: Fair - Anticipated Interventions Patient/Client Instruction: Educate patient on: Condition, Plan of Care, Risk Factors, Benefits of Fitness Program For the Purpose of:: To improve self management Therapeutic Exercise to Include: Strength training, Body mechanics, Postural training, Passive ROM, Active ROM, Scapular Strength/Stabilization For the Purpose of:: To decrease pain, To increase ROM, To improve muscle performance and motor function, To improve ability to perform ADL's, To improve ability of physical actions for home/community/work/leisure Manual Therapy Techniques to Include: Passive ROM For the Purpose of:: To increase ROM Cryotherapy (ice pack, ice massage): Yes Thermo therapy (hot pack): Yes For the Purpose of:: To decrease pain, To decrease swelling/inflammation, To increase ROM Thank you for the opportunity to evaluate your patient. For Medicare and Medicare HMO plans, please review the plan of care and approve it. It will need to be FAXED BACK to us at [phone] for Medicare purposes. Please let me know if there are questions or concerns regarding this plan of care. Physician Signature: Date: <Electronically signed by Aurelia Valencia PT, Cert. MDT> 07/13/17 1336 CC: Iglesia Bass MD; Modesto Jeffries ROQUE Signed For Medicare only, by signing this I certify the plan of care. Physicians Signature Date DEXA BONE DENSITY Observed: 07/08/2017 Status: F Source: [place] STUDY 3:34 PM [facility] [place] Imaging Services [address] [place] [address] Dexa Bone Density Study MR#: [id number] Acct: [id number] Name: SHERRY EDENDian Tompkins Rep #: [id number] : 1955 F 62 From: Bernardo Leonard MD PCP: Modesto Jeffries Status: REG CLI Study: Dexa Bone Density Study Date of Exam: 07/08/17 Exam# [id number] Ordering Dr: Modesto Jeffries MD STUDY: DUAL ENERGY X-RAY ABSORPTIOMETRY / DXA REASON FOR EXAM: Female, 62 years old. The patient is postmenopausal. TECHNIQUE: Bone Mineral Density (BMD) measurements of lumbar spine and bilateral hips were obtained. COMPARISON: Comparison is made with prior study dated November 10, 2007. FINDINGS: Lumbar Spine (L1-L4): g/cm2 (0.947) / T-score (-1.9) / Z-score (-0.6) Findings are suggestive of osteopenia with a moderate fracture risk. Left Femur Total: g/cm2 (0.813) / T-score (-1.5) / Z- score (-0.5) Left Femoral Neck: g/cm2 (0.901) / T-score (-1.0) / Z- score (0.3) Right Femur Total: g/cm2 (0.793) / T-score (-1.7) / Z- score (-0.7) Right Femoral Neck: g/cm2 (0.810) / T-score (-1.6) / Z-score (-0.3) The T-Scores on the most recent prior examination were: Lumbar Spine (L1-L4): There has been worsening of bone density since the previous examination. Left Femur Total: which represents a worsening of 10.4%. Right Femur Total: . BD/Dexa Bone Density Study IMPRESSION: The patient is considered osteopenic as outlined below according to World Abelardo Organization (WHO) criteria with a moderate fracture risk. There has been worsening of bone density since the previous examination. Reference Information: The T-score is the number of standard deviations above or below the standard which is normal for young adults at their peak bone mineral density. The World Health Organization (WHO) interprets the T-scores as follows: Above -1 Normal bone density Between -1 and -2.5 Osteopenia Equal to / or below -2.5 Osteoporosis As a practical clinical guideline, osteopenia may be graded as follows: Mild -1 through -1.5 Moderate -1.6 through -2.0 Severe -2.1 through -2.4 The Z-score is the number of standard deviations above or below age-matched controls. A Z-score of less than -1.5 would be considered abnormal. References: 1. NIH Osteoporosis and Related Bone Diseases http://www.osteo.org 2. International Society for Clinical Densitometry http://www.iscd.org 3. National Osteoporosis Foundation http://www.nof.org Electronically Signed: Bernardo Leonard MD at 14:00 EDT Tel [phone], Service support , CC: Modesto Jeffries Swimming Pool Maintenance: Signed EMERGENCY DEPARTMENT Observed: 05/31/2017 Status: F Source: [place] SUMMARY 7:03 AM [facility] Medical Records Department [address] [place] [address] Emergency Department Summary 05/30/17 1047 MR#: [id number] Acct: [id number] Name: MARI EDEN Rep #: [id number] : 1955 62 From: Preston Vail DO PCP: Modesto Jeffries Status: DEP ER - ER Visit Summary Date of Service: 05/30/17 Chief Complaint: Right shoulder injury History of Present Illness: The patient is a 62 F states last night around 10 PM she went to let the dog out. He was on a leash and pulled her. She fell down landing on her right shoulder and striking her head. She denies loss of consciousness. No nausea no vomiting. No arm or leg weakness or paresthesias. No speech difficulty. Patient notes pain in the right shoulder particularly with abduction. She states that below the shoulder joint her arm feels fine. Physical Examination: Afebrile vital signs are stable Gen: Well-nourished well-developed Head: Normocephalic atraumatic Eyes: Perrl EOMI ENT: TMs clear no rhinorrhea moist mucous membranes Neck: Supple no lymphadenopathy no JVD nontender CVS: Regular rate rhythm no murmurs normal S1-S2 Respiratory: No distress clear to auscultation bilaterally chest nontender Abdomen: Soft nontender nondistended normal bowel sounds no masses Back: Nontender Extremity: Patient is tender to palpation over the greater tuberosity of the right humerus. She has limited abduction. Neurovascularly she is intact distally. Skin: Normal color no rash Neuro: alert orientated 3 CN II-XII intact normal strength sensation reflexes gait cerebellar Psych: Normal affect normal mood Test Results: X-rays demonstrate a probable nondisplaced greater tuberosity fracture. CT the shoulder was obtained which confirms the suspicion. Emergency Department Course and Treatment: She will be placed in a sling. I will write pain medication. She is seeing [facility] in the past and wishes to follow-up with them. I will place her images on a disc for their review. Impression: 1. Right humerus fracture This note was generated with [employer] dictation software. It may contain incorrect words, spelling, and punctuation that were not noted in review of the chart prior to signing ED Disposition - Plan for ED Patient: Disposition: Home or Assisted Living Chief Complaint: Upper Extremity Injury Instructions: ED Fx Shoulder Prescriptions: Hydrocodone Bitart/Apap 5-325 [[place] 5/325] 1 - 2 tab PO Q6H PRN PRN 4 Days #20 tab PRN Reason: Pain Referrals: Modesto Jeffries MD [Primary Care Provider] - Additional Instructions: Follow-up with [facility] orthopedics as discussed. Please take your x-rays with you. What to do if you have Problems For any increased pain, shortness of breath, bleeding, nausea or vomiting, chest pain, or any unexpected problems, contact your Primary Care Provider. Call [facility] ([phone]) or report to the closest Emergency Room. Call 911 if necessary. 05/31/17 0703 <Electronically signed by Preston Vail DO> Date Preston Vail DO Cosigner Signature (If Indicated): Date CC: Modesto Jeffries EXTREMITY UPPER Observed: 05/30/2017 Status: F Source: [place]K WITHOUT CONTRA 10:11 AM [facility] [place] Imaging Services [address] [place] [address] Extremity Upper without Contra MR#: [id number] Acct: [id number] Name: MARI EDEN Rep #: [id number] : 1955 F 62 From: Pedro Young MD PCP: Modesto Jeffries Status: REG ER Study: Extremity Upper without Contra Date of Exam: 05/30/17 Exam# [id number] Ordering Dr: Preston Vail DO STUDY: CT RIGHT SHOULDER REASON FOR EXAM: Female, 62 years old. Patient pulled while walking dog. Posterior right shoulder pain. RADIATION DOSAGE (If Supplied By Facility): CTDIvol = ( 12.34 ) mGy, DLP = ( 244.52 ) mGycm TECHNIQUE: The patient was scanned in a multi detector CT scanner. High resolution transaxial imaging was performed without the administration of intravenous contrast material. Sagittal and coronal images were reconstructed. Individualized dose optimization techniques were used for this CT. COMPARISON: None. FINDINGS: Normal glenohumeral articulation. Normal glenoid rim, neck and visualized scapula. Degenerative changes in the greater tuberosity of the humeral head. There is a nondisplaced fracture of the greater tuberosity. Normal coracoid process. Normal visualized lateral clavicle. Normal acromioclavicular articulation. There is a Type II morphology (curved), with a neutral orientation. There is a small calcification lateral to the humeral head consistent with calcific tendinitis. CT/Extremity Upper without Contra IMPRESSION: Nondisplaced fracture of the greater tuberosity of the humeral head. Calcific tendinitis of the right shoulder. 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 Patient pulled while walking dog. Posterior right shoulder pain TECHNIQUE: 2 view(s) of the humerus. COMPARISON: None. FINDINGS: There is irregularity of the greater tuberosity of the humeral head with questionable nondisplaced fracture. There is cephalad migration of the humeral head which probably impinge on the rotator cuff. The acromioclavicular joint appears to be unremarkable. The humeral shaft appear unremarkable. There is no demonstrated soft tissue abnormality. RAD/Humerus min 2 Views IMPRESSION: Questionable nondisplaced fracture of the greater tuberosity of the humeral head. Shoulder views or CT scan of the shoulder are recommended. Electronically Signed: Pedro Young MD at 10:34 EST Tel , Service support , CC: Preston Jeffries Swimming Pool Maintenance: Signed ALLERGIES ALLERGIES DATE TYPE / CODE NAME / CODE REACTION SEVERITY SOURCE 04/25/2018 Drug Iodinated Vomiting Unknown [facility] Allergy/416 Contrast- [facility] 154271(SNOM and IV Repository ED CT) Dye/[id number](R XNORM) 03/12/2009 Chemical/42 ADHESIVE TAPE ITCHING [facility] [id number](SNO (ROSINS) [facility] [place] [facility]) Repository 07/28/2005 DRUG CLAMS DIARRHEA [facility] INGREDI/419 [facility] 776246(SNOM Repository ED CT) Drug/147134 iodine Nausea [facility]ism 003([facility] CT) System Repository ENCOUNTERS ENCOUNTERS ADMIT/DISCHARGE ACCOUNT NUMBER ADMITTING ENCOUNTER LOCATION SOURCE CLASS 04/25/2018/04/25/19 [id number] Emergency [address] ding:ED Repository 04/19/2018 [id number] Ambulatory BMSBuilding: Dk BMS.[facility] Repository 04/18/2018/04/19/19 [id number] Dw[place], Inpatient [address] ding:PCURoom Repository : UXH547Hcx: 1 04/18/2018 [id number] [facility], Ambulatory BMSBuilding: [place] Reji BMS.[facility] Repository 04/18/2018 [id number] [facility], Ambulatory BMSBuilding: Dk Reji BMS.CF.[facility] Repository 04/18/2018 [id number] [facility], Ambulatory BMSBuilding: [place] Reji BMS.[facility] Repository 04/12/2018 [id number] Ambulatory [facility] ding:LABSPEC Repository 12/09/2017/12/11/19 [id number] Ambulatory [address] Repository 08/30/2017/08/31/19 [id number] Emergency [address] ding:ED Repository 08/29/2017/08/30/19 [id number] [place], Emergency Mormonism Mormonism [facility] ding:[facility] EDRoom: WR Repository 08/29/2017 [id number] Ambulatory [address] [place] [address] Repository 08/11/2017/08/12/19 [id number] Ambulatory [address] ding:PT Repository 07/13/2017/07/14/19 [id number] Emergency [address] ding:ED Repository 07/08/2017 [id number] Ambulatory [facility] ding:OPBD Repository 05/30/2017/05/30/19 [id number] Emergency [address] ding:ED Repository PAYERS PAYERS ENCOUNTER GUARANTOR PAYER SUBSCRIBER SOURCE 04/25/2018 L GALE Primary MARI Root [id number] AYDIN Insurance:AETNAPolicy STREITDOB: [place], [place] Number: [id number] [facility] [address]Ujw: 330 [id number] Repository [phone] () Date:4348-79-64KW [address] [address]GI: 04/25/2018 Secondary NOT GIVENUNK [place] Insurance:SELF PAY [facility] Number: Effective Repository Date:2018-04-25 04/19/2018 L GALE Primary MARI Root [id number] AYDIN Insurance:AETNAPolicy STREITDOB: [place], [place] Number: [id number] [facility] [address]Kvp: 330 [id number] Repository [phone] () Date:0148-37-05YU [address] [address]EY: 04/19/2018 Secondary NOT GIVENUNK Dk Insurance:SELF PAY [facility] Number: Effective Repository Date:2018-04-19 04/18/2018 L GALE Primary MARI Root [id number] AYDIN Insurance:AETNAPolicy STREITDOB: [facility] [place] Number: [id number] Hospital [address]Qze: 330 [id number] Repository [phone] () Date:8565-50-58ML [address] [place] [address]NA: 04/18/2018 Secondary NOT GIVENUNK Dk Insurance:SELF PAY [facility] Number: Effective Repository Date:2018-04-18 04/18/2018 L GALE Primary MARI Root [id number] AYDIN Insurance:AETNAPolicy STREITDOB: [facility] [place] Number: [id number] Hospital [address]Eoq: (330 [id number] Repository [phone] (HP) Date:2340-61-21EP [address] [address]KI: 04/18/2018 Secondary NOT GIVENUNK Dk Insurance:SELF PAY [facility] Number: Effective Repository Date:2018-04-18 04/18/2018 L GALE Primary MARI Tompkins [place] [id number] AYDIN Insurance:AETNAPolicy STREITDOB: [facility] [place] Number: [id number] Hospital [address]Pez: (330 [id number] Repository [phone] (HP) Date:7819-15-97FL [address] [place] [address]TS: 04/18/2018 Secondary NOT GIVENUNK [place] Insurance:SELF PAY [facility] Number: Effective Repository Date:2018-04-18 04/18/2018 L GALE Primary MARI Tompkins [place] [id number] AYDIN Insurance:AETNAPolicy STREITDOB: [facility] [place] Number: [id number] Hospital [address]Qyw: (524) [id number] Repository [phone] () Date:6841-64-29YF [address] [place] [address]QL: 04/18/2018 Secondary NOT GIVENUNK Dk Insurance:SELF PAY [facility] Number: Effective Repository Date:2018-04-18 04/12/2018 L GALE Primary MARI Root [id number] Aydin Insurance:AETNAPolicy STREITDOB: [facility], Number: [id number] [address]Fcl: [id number] Repository Date:5970-16-44NY [address] ([address]) [place] [address]VC: 04/12/2018 Secondary NOT GIVENUNK Dk Insurance:SELF PAY [facility] Number: Effective Repository Date:2018-04-12 08/30/2017 Cr Gale [facility] MARI Root [id number] Aydin Insurance:AETNAPolicy STREITDOB: [facility], Number: [id number] [facility] Medical Center [address]Vli: [id number] Repository Date:9323-08-04IJ [address] () [address] [address]VL: 08/30/2017 Secondary NOT GIVENUNK Dk Insurance:SELF PAY [facility] Number: Effective Repository Date:2017-08-30 08/29/2017 MARI Tompkins [facility] MARI Tompkins Mormonism STREITDOB: Insurance:Self STREITDOB: [facility] [id number] [facility] Number: [id number] [facility] Effective 3 [place], [place] Date:2017-08-29 [place] [address]Xfp: [id number] [address]Vab: Name:Self Pay (HP) (HP) () 08/29/2017 MARI STREITDOB: [facility] MARI STREITDOB: [place] [id number] Insurance:Temp[employer]P [id number] [place] [address] [facility][note 3]Jomar Number: 3 [facility] [address] Effective Date:[place], [place] Name:[place] [address] 08/11/2017 L Gale Primary MARI Root [id number] Aydin Insurance:AETNAPolicy STREITDOB: [facility], Number: [id number] [facility] Medical Center [address]Dkp: [id number] Repository Date:3417-62-62OD [address] () [address] [place] [address]ZO: 08/11/2017 Secondary NOT GIVENUNK [place] Insurance:SELF PAY [facility] Number: Effective Repository Date:2017-07-01 07/13/2017 L Gale Primary MARI Root [id number] Aydin Insurance:AETNAPolicy STREITDOB: [facility], Number: [id number] [facility] Medical Center [address]Flb: [id number] Repository Date:8450-35-12ZD [address] () [address] [place] [address]GP: 07/13/2017 Secondary NOT GIVENUNK Dk Insurance:SELF PAY [facility] Number: Effective Repository Date:2017-07-13 07/08/2017 L Gale Primary MARI Root [id number] Aydin Insurance:AETNAPolicy STREITDOB: [facility], Number: [id number] [facility] Medical Center [address]Shl: [id number] Repository Date:7745-59-88EN [address] () [address] [place] [address]RA: 07/08/2017 Secondary NOT GIVENUNK [place] Insurance:SELF PAY [facility] Number: Effective Repository Date:2017-06-24 05/30/2017 L Gale Primary MARI Root [id number] Aydin Insurance:AETNAPolicy STREITDOB: [facility], Number: [id number] New [facility] Medical Center [address]Gbe: [id number] Repository Date:4802-83-19FL [address] (RR) [address] [place]UC[place] [address]UY: 05/30/2017 Secondary NOT GIVENUNK [place] Insurance:SELF PAY [facility] Number: Effective Repository Date:2017-05-30
== END 2018-04-25 09:57 | disposition home or self-care (01) ==
PROVIDERS: Emergency Provider Emergency Medicine; Family Provider Family Medicine; PCP Family Medicine
DX: L27.1 Localized skin eruption due to drugs and medicaments taken internally (principal); T50.905A Adverse effect of unspecified drugs, medicaments and biological substances, initial encounter; Y92.9 Unspecified place or not applicable; I25.10 Atherosclerotic heart disease of native coronary artery without angina pectoris; F32.9 Major depressive disorder, single episode, unspecified; Z79.01 Long term (current) use of anticoagulants; Z79.899 Other long term (current) drug therapy
CPT/HCPCS: 99282

== ENCOUNTER → 2018-09-01 | Outpatient (CLI) | payer OTHER, SELFPAY ==
[2018-06-01 10:05] VITALS: BMI 24.2
--- NOTE | 2018-09-01 14:48 | ECHOL_ITS ---
Reason For Study: DYSPNEA/SOB Procedure This was a limited 2D transthoracic echocardiogram. Exam performed in department. Left Ventricle Normal LV size. Left ventricular systolic function is normal. The estimated ejection fraction is 60 %. No regional wall motion abnormalities noted. [place] : Normal. Right Ventricle Normal RV size. Normal systolic function. Atria Normal left atrium. Normal right atrium. Mitral Valve Normal mitral valve. Tricuspid Valve Normal tricuspid valve. Aortic Valve Normal aortic valve. Trisinus/trileaflet aortic valve. Pulmonic Valve Normal pulmonic valve. Great Vessels Normal aortic root. The pulmonary artery is normal size. Normal inferior vena cava. Pericardium/Pleural No pericardial effusion. MMode/2D Measurements & Calculations LVIDd: 4.8 cm IVSd: 1.0 cm Ao root diam: 3.2 cm LVIDs: 2.9 cm LVPWd: 0.95 cm RVDd: 2.9 cm FS: 40.3 % LAV(MOD-bp): 55.6 ml LA A4 area: 17.4 cm2 LA dimension(2D): 3.2 cm LAV(MOD-bp) Indexed: 33.7 ml/m2 LAV(MOD-sp2): 53.1 ml LAV(MOD-sp4): 53.1 ml RA A4 area: 15.6 cm2 Interpretation Summary Normal LV size. Left ventricular systolic function is normal. The estimated ejection fraction is 60 %. [place] : Normal. Compared to previous study, the left ventricular systolic function has improved.. Ordering Physician: Eladio Castillo Referring Physician: Modesto Jeffreis Performed By: Shayy Hoang, CLARISA, RVT
== END | disposition home or self-care (01) ==
PROVIDERS: Family Provider Family Medicine; PCP Family Medicine; Referring Provider Internal Medicine Cardiovascular Disease; Visit Provider Internal Medicine Cardiovascular Disease
DX: I51.81 Takotsubo syndrome (principal)
CPT/HCPCS: 93308

== ENCOUNTER 2020-06-06 16:02 | Outpatient (RCR) | payer OTHER, SELFPAY ==
[2020-05-03 15:18] VITALS: BMI 24.9
[2020-06-06] MEDS: COVID-19 VACC, MRNA(PFIZER)/PF 30 MCG/0.3 ML SYRINGE IM (18:21)
[2020-06-27] MEDS: COVID-19 VACC, MRNA(PFIZER)/PF 30 MCG/0.3 ML SYRINGE IM (17:48)
== END 2020-06-06 23:59 ==
LOC: IMMUN 16:02
PROVIDERS: PCP Family Medicine; Referring Provider Family Medicine; Visit Provider Family Medicine
DX: Z23 Encounter for immunization (principal)
CPT/HCPCS: 0001A; 0002A; 91300

== ENCOUNTER → 2021-01-31 14:27 | Outpatient (CLI) | payer OTHER, SELFPAY ==
--- NOTE | 2021-01-31 14:30 | US_ITS ---
STUDY: ABDOMINAL ULTRASOUND - LEFT UPPER QUADRANT REASON FOR EXAM: Female, 65 years old. LUQ PAIN TECHNIQUE: Transabdominal ultrasound was performed with real-time and static de los santos scale imaging. TECHNICAL QUALITY: Adequate. COMPARISON: None. FINDINGS: Spleen: Normal size of the spleen. The spleen measures 7.3 cm x 3.7 cm x 2.5 cm. Left Kidney: Normal size of the left kidney. The left kidney measures 9.8 cm x 4.6 cm x 5.1 cm. Normal renal cortex. The left cortex measures 1.1 cm. There is a 2 cm x 1.9 cm x 1.9 cm cyst in the upper pole of the left kidney. There is no left hydronephrosis. US/Abdomen Limited IMPRESSION: Left renal cyst. Electronically Signed: Bernardo Leonard MD at 15:22 EDT , Service support ,
--- NOTE | 2021-01-31 15:00 | RAD_ITS ---
EXAM: XR CHEST, 2 VIEWS CLINICAL INDICATION: R/O PNEUMONIA TECHNIQUE: Frontal and lateral views of the chest. This report was created using [facility] report generation technology. COMPARISON: None. FINDINGS: LUNGS AND PLEURAL SPACES: Unremarkable. No consolidation or edema. No pneumothorax. No effusion. HEART: Unremarkable. Cardiac silhouette not enlarged. MEDIASTINUM: Central airways and mediastinal contour are unremarkable. BONES/JOINTS: Unremarkable. SOFT TISSUES: Unremarkable. RAD/Chest PA and Lateral IMPRESSION: No radiographic evidence of acute cardiopulmonary disease. Electronically Signed: Mg Olvera MD at 17:43 EDT , Service support ,
== END ==
PROVIDERS: PCP Family Medicine; Referring Provider Family Medicine; Visit Provider Family Medicine
DX: R10.12 Left upper quadrant pain (principal); R50.9 Fever, unspecified
CPT/HCPCS: 71046; 76705

== ENCOUNTER 2021-07-01 06:55 | Emergency (ER) | payer OTHER, SELFPAY ==
[2021-07-01 06:56] VITALS: BP 176/71; PULSE 70; RESP 16; TEMP 37.1; O2SAT 98; BMI 24.9
--- NOTE | 2021-07-01 07:11 | CT_ITS ---
STUDY: CT CHEST WITHOUT CONTRAST REASON FOR EXAM: Female, 66 years old. fall. Right rib fractures ?? RADIATION DOSAGE (If Supplied By Facility): CTDIvol = ( 9.7 ) mGy, DLP = ( 375.54 ) mGycm TECHNIQUE: Transaxial imaging was performed without the administration of intravenous contrast material. Individualized dose optimization techniques were used for this CT. COMPARISON: None. FINDINGS: The lungs are normal. There is a small right pleural effusion. Normal heart and pericardium. Normal mediastinum. Normal hilar regions. Normal unenhanced pulmonary arteries. Normal aorta arch and descending thoracic aorta. There are nondisplaced fractures of right fifth and sixth ribs. There is no demonstrated abnormality of the visualized upper abdomen. CT/Chest without Contrast IMPRESSION: There are nondisplaced fractures of right fifth and sixth ribs. Electronically Signed: Chris Rudolph MD at 7:41 EDT ,
--- NOTE | 2021-07-01 07:12 | EX.ED.GENINJ ---
HPI History of Present Illness Chief Complaint: Chest Other Detail of Chief Complaint: Fell last Wednesday injuring her right rib cage. Informant: patient and spouse/S.O. Onset/Context/Timing Onset: Days Current Severity: Moderate Maximum Severity: Moderate Associated Symptoms Associated Symptoms: Negative for Parasthesias, Weakness, Loss of function, Inability to ambulate, Loss of consciousness and Amnesia Narrative Narrative: 66-year-old female prior RI. Not on blood thinners. States she was drinking last Wednesday lost her balance fell injuring her right rib cage. She was seen in urgent care at the [facility] on . Had a chest x-ray done. It did not see any specific rib fractures on the chest x-ray. She is having continued pain. Worse with movement. Denies any head injury. No LOC. No other complaints. Prior similar symptoms: No Recent Illness/Hospitalization: No [facility] Medical History (Updated 07/01/21 @ 08:[address] Jamil Brar MD) Nicotine dependence Non-STEMI (non-ST elevated myocardial infarction) (04/18/18) Takotsubo cardiomyopathy (04/18/18) Home Medications sertraline 100 mg PO BID 02/09/16 [History Last Taken 05/30/17] calcium carbonate-vitamin D3 1 ea PO DAILY 04/18/18 [History Last Taken Unknown] folic acid 0.4 mg PO DAILY@0800 04/18/18 [History Last Taken Unknown] bj-cyl-kjvuu-calcium carb-K1 1 ea PO DAILY 04/18/18 [History Last Taken Unknown] cholecalciferol (vitamin D3) 25 mcg (1,000 unit) capsule 1,000 unit PO DAILY 06/01/18 [History Last Taken Unknown] buspirone 10 mg tablet 10 mg PO BID 05/03/19 [History Last Taken Unknown] alprazolam 0.25 mg tablet 0.25 mg PO QHS PRN tab 05/03/20 [History Last Taken Unknown] lisinopril 20 mg tablet 20 mg PO DAILY #90 tab 07/26/20 [Rx Last Taken Unknown] metoprolol succinate 25 mg tablet,extended release 24 hr 25 mg PO DAILY #90 tab 05/19/21 [Rx Last Taken Unknown] hydrocodone-acetaminophen 1 tab PO Q4H PRN 5 Days #20 tab 07/01/21 [Rx Last Taken Unknown] Allergy/AdvReac Type Severity Reaction Status Date / Time Iodinated Contrast Media AdvReac Vomiting Verified 07/01/21 07:01 [Iodinated Contrast Media - IV Dye] Family History Mother Heart disease Father Heart disease Surgical History History of bunionectomy of left great toe History of hysterectomy History of left heart catheterization (04/18/18) History of open reduction and internal fixation (ORIF) procedure Social History Smoking Status: Current every day smoker tobacco type: cigarettes ROS ROS ED ROS Narrative Denies. Review of Systems ROS Unobtainable: Denies due to encephalopathy Constitutional Constitutional ED: Denies fever(s) Eyes Eyes: Denies change in vision ENT ENT ED: Denies ear pain Cardiovascular Cardiovascular: Denies chest pain Respiratory/Chest Respiratory/Chest: Denies dyspnea Gastrointestinal Gastrointestinal: Denies abdominal pain Genitourinary Genitourinary ED: Denies dysuria Musculoskeletal Musculoskeletal: Denies myalgias Integumentary Denies rash Neurologic Neurologic: Denies headache(s) Psychiatric Psychiatric: Denies depression Endocrine Endocrinology: Denies polyuria Hematologic/Lymphatic Hematologic/Lymphatic: Denies easy bruising Allergic/Immunologic Allergic/Immunologic ED: Denies urticaria EXAM Physical Exam Narrative Exam Narrative: 66-year-old female no acute distress. Complaining of right lateral rib cage pain. Pulse ox 98% on room air no signs of hypoxia. Vital signs are stable afebrile. HEENT exam unremarkable atraumatic. Pupils round reactive light. Nontender. C-spine trachea nontender no lymphadenopathy. Lungs clear to auscultation bilaterally. Splinting on the right. Heart regular rate and rhythm no murmur. Rate of 70. Right lateral rib cage is tender. There is no bruising or subcu air noted. Left side nontender. Abdomen soft nontender. Pelvic girdle intact. Moving all 4 extremities. Normal layboy tender strength. Normal dorsi plantar flexion. Normal range of motion upper and lower extremities. Nontender. Back right lateral posterior rib cage is tender. There is no ecchymosis or bruising. Spine is nontender. Neurologic exam normal. GCS of 15. Const Vital Signs: 07/01/21 06:56 07/01/21 06:59 Temperature 98.8 F Temperature Source Oral Pulse Rate 70 Respiratory Rate 16 Respiratory Effort Normal Non-Labored Blood Pressure 176/71 H Blood Pressure Mean 106 Pulse Ox 98 Oxygen Delivery Method Room Air Positive well nourished and well developed; Negative for obese, cachectic, contractures or unkempt General Appearance ED: well developed and NAD; Negative for unkempt, cachectic or contractures Nutritional Appearance: Negative for cachectic or obese HEENT atraumatic; Negative for trauma or tenderness Eyes PERRL and EOMs intact bilaterally Neck full ROM General: Negative for tenderness Chest Wall inspection of chest normal and palpation of chest normal Resp normal respiratory effort and clear to auscultation bilaterally Auscultation: Negative for rales, rhonchi or wheezes Cardio regular rhythm, S1 normal heart sound and no murmurs Rate: regular rate GI normal to inspection, nondistended, normoactive bowel sounds, non-tender, non-distended and no masses Inspection: Negative for abdominal distention Auscultation: normoactive bowel sounds Palpation: soft; Negative for tender, guarding or rebound tenderness present Back/Spine normal to inspection and no thoracic nor lumbar tenderness General Back: Negative for CVA tenderness Thoracic Spine / Upper Back: Negative for thoracic spinal tenderness Extremity normal to inspection and full ROM General Extremety ED: Negative for deformity, edema or tenderness General Extremity: Negative for deformity or edema Neuro oriented x3, moves all extremities and no focal motor deficits [place] Coma Scale: document GCS findings Spontaneous Obeys Commands Oriented 15 Sensorium / Orientation: alert, oriented to person, oriented to place and oriented to time; Negative for orientation impaired, lethargic or stuporous Motor Exam: strength 5/5 throughout Psych mental status grossly normal and thought process normal Appearance: Negative for unkempt Attitude: No agitated Mood & Affect: Negative for depressed or tearful Skin no rashes or lesions noted, no wounds, No skin turgor normal and no jaundice Rashes: No rashes noted MDM MDM MDM Narrative Medical decision making narrative: 66-year-old female fall 6 days ago. Complaining of right rib cage pain. Prior x-rays were negative. I discussed with the patient and her explained to them often x-rays can miss nondisplaced rib fractures. They understand that. She would like more advanced imaging. The CAT scan is going to be obtained. She be given [place] for pain. Repeat exam patient is doing well at 8:15 AM. We went over her test results and ways to treat rib fractures. She will be discharged home on [place]. Ice to the area. Pillow for support. Radiography Diagnostic Testing: Clinical Impression(s) from Imaging Studies Chest CT 07/01/21 07:11 IMPRESSION: There are nondisplaced fractures of right fifth and sixth ribs. Electronically Signed: Chris Rudolph MD at 7:41 EDT Reading Location ID and State: [facility] / [place] Tel , Service support , CAT scan of the chest is read by the radiologist and reviewed by me shows right fifth and sixth rib nondisplaced fractures. No pneumothorax. No significant effusion. Discussed results with patient and her . Discharge Plan Triage Chief Complaint: Chest Other ED Provider: Jamil Brar Dx/Rx/DC Orders Clinical Impression: Fracture, ribs Instructions: ED Rib Fracture Prescriptions: New hydrocodone-acetaminophen 5-325 mg tablet 1 tab PO Q4H PRN (Reason: pain) 5 Days Qty: 20 RF: 0 No Action cholecalciferol (vitamin D3) 1,000 unit capsule 1,000 unit capsule 1,000 unit PO DAILY RF: 0 buspirone 10 mg tablet 10 mg PO BID RF: 0 alprazolam 0.25 mg tablet 0.25 mg PO QHS PRNRF: 0 sertraline 100 MG tablet 100 mg PO BID RF: 0 folic acid 0.4 MG tablet 0.4 mg PO DAILY@0800 RF: 0 calcium carbonate-vitamin D3 1 EACH tablet 1 ea PO DAILY RF: 0 er-haw-mbxhd-calcium carb-K1 1 EACH tablet 1 ea PO DAILY RF: 0 lisinopril 20 mg tablet 20 mg PO DAILY Qty: 90 RF: 4 metoprolol succinate [Toprol XL] 25 mg tablet extended release 24 hr 25 mg PO DAILY Qty: 90 RF: 3 Primary Care Provider: Modesto Jeffries Referrals: Modesto Jeffries MD [Primary Care Provider] - Activity Restrictions/Additional Instructions: You have the fifth and sixth ribs are broken on the right. Pillow to the area to support the broken ribs. Ice to decrease pain and inflammation. Motrin for pain and inflammation. [place] is a pain medication you can use for your broken ribs. Do not drink or drive while using it. Plenty of fluids, fruits and vegetables and fiber to prevent constipation. Disposition Disposition: Home, Self Care
[2021-07-01] MEDS: HYDROcodone Bitartrate/Apap 5/325 Tablet PO (07:16)
[2021-07-01 08:29] VITALS: BP 160/70; PULSE 73; RESP 16
== END 2021-07-01 08:30 | disposition home or self-care (01) ==
PROVIDERS: Emergency Provider Emergency Medicine; PCP Family Medicine; Visit Provider Emergency Medicine
DX: S22.41XA Multiple fractures of ribs, right side, initial encounter for closed fracture (principal); F17.210 Nicotine dependence, cigarettes, uncomplicated; I25.2 Old myocardial infarction; Z79.899 Other long term (current) drug therapy; W19.XXXA Unspecified fall, initial encounter; Y93.9 Activity, unspecified; Y92.9 Unspecified place or not applicable
CPT/HCPCS: 71250; 99283

== ENCOUNTER → 2021-12-11 | Outpatient (CLI) | payer OTHER, SELFPAY ==
--- NOTE | 2021-12-11 13:40 | RAD_ITS ---
STUDY: X-RAY - LEFT KNEE REASON FOR EXAM: Female, 66 years old. Swelling. Chronic knee pain. TECHNIQUE: 4 view(s) of the knee. COMPARISON: None. FINDINGS: No visible fracture. No osseous destruction. Alignment anatomic. Normal joint space. Small patellar osteophytes. No acute soft tissue abnormality. Calcific atherosclerosis. RAD/Knee 4 or More Views IMPRESSION: No acute osseous abnormality. Mild for age degenerative changes. Electronically Signed: Yoshi Cobos MD at 5:06 EDT Reading Location ID and State: [facility] / [place] Tel , Service support ,
== END | disposition home or self-care (01) ==
LOC: MTRAD 13:38
PROVIDERS: PCP Family Medicine; Referring Provider Family Medicine; Visit Provider Family Medicine
DX: M17.12 Unilateral primary osteoarthritis, left knee (principal)
CPT/HCPCS: 73564

== ENCOUNTER 2022-11-15 13:22 | Emergency (ER) | payer OTHER, SELFPAY ==
[2022-11-15 13:24] VITALS: BP 150/88; PULSE 75; RESP 18; TEMP 35.9; O2SAT 97; BMI 23.0
--- NOTE | 2022-11-15 13:44 | EX.ED.VIS.UR ---
HPI HPI - URI History of Present Illness Chief Complaint: Nosebleed Detail of Chief Complaint: Right-sided nosebleed that started on yesterday. Informant: patient and spouse/S.O. Onset/Context/Timing Onset: Today and Yesterday Context: Gradual Onset Timing: Intermittent Current Severity: Gone Maximum Severity: Moderate Narrative Narrative: 67-year-old female who does not typically get nosebleeds. States that yesterday started getting right-sided nosebleeds that were intermittent and at times it would gush. She is on no blood thinners not even aspirin. Denies any trauma to her nose. Denies any bleeding from her gums, bruising, gross hematuria or blood in her stool. Prior similar symptoms: No Recent Illness/Hospitalization: No ROS ROS ED ROS Narrative Denies recent illness. Review of Systems ROS Unobtainable: Denies due to encephalopathy Constitutional Constitutional ED: Denies chills or fever(s) Eyes Eyes: Denies blurry vision ENT ENT ED: Denies ear pain Cardiovascular Cardiovascular: Denies chest pain Respiratory/Chest Respiratory/Chest: Denies cough or dyspnea Gastrointestinal Gastrointestinal: Denies abdominal pain Genitourinary Genitourinary ED: Denies dysuria or hematuria Musculoskeletal Musculoskeletal: Denies arthralgias Integumentary Denies abscess or Abrasions Neurologic Neurologic: Denies headache(s) Psychiatric Psychiatric: Denies anxiety Endocrine Endocrinology: Denies cold intolerance Hematologic/Lymphatic Hematologic/Lymphatic: Denies easy bleeding, easy bruising or lymphadenopathy Allergic/Immunologic Allergic/Immunologic ED: Denies mouth swelling or tongue swelling [facility] Medical History Nicotine dependence Non-STEMI (non-ST elevated myocardial infarction) (04/18/18) Takotsubo cardiomyopathy (04/18/18) Home Medications sertraline 100 mg tablet 100 mg PO BID depression 02/09/16 [History Last Taken 05/30/17] calcium carbonate-vitamin D3 600 mg-125 unit tablet 1 ea PO DAILY suppliment 04/18/18 [History Last Taken Unknown] folic acid 400 mcg tablet 0.4 mg PO DAILY@0800 suppliment 04/18/18 [History Last Taken Unknown] jovfzuee-vho-ggcdj ac 400 mcg-calcium carb 500 mg-vit K1 20 mcg tablet 1 ea PO DAILY suppliment 04/18/18 [History Last Taken Unknown] cholecalciferol (vitamin D3) 25 mcg (1,000 unit) capsule 1,000 unit PO DAILY 06/01/18 [History Last Taken Unknown] buspirone 10 mg tablet 10 mg PO BID 05/03/19 [History Last Taken Unknown] alprazolam 0.25 mg tablet 0.25 mg PO QHS PRN 05/03/20 [History Last Taken Unknown] hydrocodone-acetaminophen 5-325mg 5mg-325mg 1 tab PO Q4H PRN pain 5 days #20 tabs 07/01/21 [Rx Last Taken Unknown] lisinopril 20 mg tablet 20 mg PO DAILY #90 tabs 07/30/22 [Rx Last Taken Unknown] metoprolol succinate 25 mg tablet,extended release 24 hr (Toprol XL) 25 mg PO DAILY #90 tabs 07/30/22 [Rx Last Taken Unknown] amoxicillin 500 mg capsule 500 mg PO BID 3 days #6 caps 11/15/22 [Rx Last Taken Unknown] Allergy/AdvReac Type Severity Reaction Status Date / Time Iodinated Contrast Media AdvReac Vomiting Verified 11/15/22 13:24 [Iodinated Contrast Media - IV Dye] Family History Mother Heart disease Father Heart disease Surgical History History of bunionectomy of left great toe History of hysterectomy History of left heart catheterization (04/18/18) History of open reduction and internal fixation (ORIF) procedure Social History Smoking Status: Current every day smoker tobacco type: cigarettes EXAM Physical Exam Narrative Exam Narrative: Well-appearing 67-year-old female. Vital signs stable afebrile. HEENT exam posterior pharynx unremarkable. Left nare is normal. Right naris is a small amount of blood at Evonne box plexus on the anterior nasal septum. Currently there is no active bleeding or clots. Neck nontender. Lungs clear. Heart regular rhythm. Abdomen soft nontender. Moving all 4 extremities. No bruising noted. Exam benign. Const Vital Signs: 11/15/22 13:24 Temperature 96.7 F L Temperature Source Temporal Pulse Rate 75 Respiratory Rate 18 Blood Pressure 150/88 H Blood Pressure Mean 108 Pulse Ox 97 Oxygen Delivery Method Room Air Positive well nourished and well developed; Negative for obese, cachectic or contractures General Appearance ED: well developed and NAD; Negative for cachectic, contractures, cyanotic, diaphoretic or pallor Nutritional Appearance: Negative for cachectic or obese HEENT Reports moist mucous membranes; Denies dry mucous membranes normocephalic and atraumatic; Negative for scalp tenderness Face and Sinus: Negative for sinus tenderness Mouth ED: No dry mucous membranes Mouth: No dry mucous membranes Teeth and Gingiva: Negative for caries Throat: posterior oropharynx normal Eyes PERRL and EOMs intact bilaterally General Eye ED: Negative for pale conjunctiva, scleral icterus or other Neck no lymphadenopathy, supple, no meningeal signs and no JVD General: Negative for anterior neck swelling or lymphadenopathy Resp normal respiratory effort and clear to auscultation bilaterally Effort and Inspection: Negative for retractions Auscultation: Negative for rales, rhonchi or wheezes Cardio S1 normal heart sound, S2 normal heart sound and no murmurs Rate: regular rate; Negative for bradycardia or tachycardic Rhythm: regular rhythm GI non-tender, non-distended and no masses Inspection: Negative for abdominal distention Auscultation: normoactive bowel sounds Palpation: soft; Negative for tender or guarding Back/Spine no CVA tenderness and normal ROM General Back: Negative for CVA tenderness Cervical Spine: Negative for cervical spine tenderness Thoracic Spine / Upper Back: Negative for thoracic spinal tenderness Lumbar Spine / Lower Back: Negative for lumbar spinal tenderness Sacrum: Negative for tenderness Extremity normal to inspection and full ROM General Extremety ED: Negative for cyanosis or tenderness General Extremity: Negative for cyanosis Neuro oriented x3 and CN's II-XII intact bilaterally Sensorium / Orientation: alert, oriented to person, oriented to place and oriented to time; Negative for orientation impaired, lethargic or stuporous Motor Exam: strength 5/5 throughout Psych mental status grossly normal Appearance: Negative for other Attitude: No agitated Mood & Affect: Negative for depressed, anxious or tearful Skin General Skin Exam: Negative for jaundice or pallor Lesions: no lesions Rashes: no rashes Trauma: Negative for abrasion or laceration MDM MDM MDM Narrative Medical decision making narrative: 67-year-old female right anterior nosebleed. Currently is not actively bleeding. Anterior nasal pack Merisel pack will be placed. Remove in 3 days. She be placed on amoxicillin twice daily for 3 days. Follow-up with ENT as needed. Return if worse. Patient has a benign exam. She has no issues with bleeding currently I do not think she needs any labs. History & Record Review Discussion w/independent historian: Patient and Family Additional record(s) reviewed:: Prior inpatient record, Prior outpatient record, Prior ED visit and Prior labs Procedures Other Procedures Procedure(s): Right anterior nasal pack. Placed a Merisel pack. Discharge Plan Triage Chief Complaint: Nosebleed ED Provider: Jamil Brar Dx/Rx/DC Orders Clinical Impression: Acute anterior epistaxis Instructions: ED Epistaxis (Adult) Prescriptions: New amoxicillin 500 mg capsule 500 mg PO BID 3 Days Qty: 6 0RF No Action cholecalciferol (vitamin D3) 1,000 unit capsule 1,000 unit capsule 1,000 unit PO DAILY buspirone 10 mg tablet 10 mg PO BID alprazolam 0.25 mg tablet 0.25 mg PO QHS PRN Patient Comments: ONE TABLET BY MOUTH DAILY NEEDED FOR SLEEP/ANXIETY sertraline 100 MG tablet 100 mg PO BID folic acid 0.4 MG tablet 0.4 mg PO DAILY@0800 calcium carbonate-vitamin D3 1 EACH tablet 1 ea PO DAILY ah-snd-yurcf-calcium carb-K1 1 EACH tablet 1 ea PO DAILY hydrocodone-acetaminophen 5-325 mg tablet 1 tab PO Q4H PRN (Reason: pain) 5 Days Qty: 20 0RF metoprolol succinate [Toprol XL] 25 mg tablet extended release 24 hr 25 mg PO DAILY Qty: 90 3RF lisinopril 20 mg tablet 20 mg PO DAILY Qty: 90 4RF Primary Care Provider: Modesto Jeffries Referrals: Elias Davey MD [Med Staff - Active Staff] - 3-5 Days if not improving Modesto Jeffries MD [Primary Care Provider] - Activity Restrictions/Additional Instructions: You can pull the packing out either Wednesday night or Wednesday morning. The amoxicillin twice a day for the next 3 days to prevent a sinus infection. If it rebleeds hold direct pressure by pinching your nose for 20 to 30 minutes if unable to get it stopped return. Follow-up with ear nose and throat doctors as needed. Disposition Disposition: Home, Self Care
[2022-11-15] MEDS: Oxymetazoline 0.05% 1 SPRAY SPRAY.BTL 2 SPRAY NASAL (13:46)
== END 2022-11-15 14:08 | disposition home or self-care (01) ==
PROVIDERS: Emergency Provider Emergency Medicine; PCP Family Medicine; Visit Provider Emergency Medicine
DX: R04.0 Epistaxis (principal); F17.210 Nicotine dependence, cigarettes, uncomplicated; I25.2 Old myocardial infarction; I5A Non-ischemic myocardial injury (non-traumatic); Z90.710 Acquired absence of both cervix and uterus
CPT/HCPCS: 30901; 99282; J7030; A4216

== ENCOUNTER 2022-12-31 08:08 | Emergency (ER) | payer OTHER, SELFPAY ==
[2022-12-31 08:09] VITALS: BP 177/66; PULSE 85; RESP 14; TEMP 35.7; O2SAT 98; BMI 22.3
[2022-12-31 08:11] VITALS: BMI 22.3
--- NOTE | 2022-12-31 08:50 | CT_ITS ---
STUDY: CTA HEAD AND NECK WITH CONTRAST REASON FOR EXAM: Female, 67 years old. Vision changes. Pressure behind the right eye. RADIATION DOSAGE (If Supplied By Facility): CTDIvol = ( 28.54 ) mGy, DLP = ( 1316.79 ) mGycm TECHNIQUE: CT angiography was performed with a multi-detector CT scanner. Data acquisition was obtained from the skull base through the vertex following intravenous administration of IV 100mL [id number]-370. MIP images were reconstructed from the axial data set. Post-processing of the angiographic images was performed, with multiplanar reformation and 3D reconstruction. Individualized dose optimization techniques were used for this CT. COMPARISON: No relevant priors. FINDINGS: Normal bilateral petrous carotid arteries. There is calcified plaque formation of the right cavernous carotid artery, without a cross-sectional luminal stenosis. There is calcified plaque formation of the left cavernous carotid artery, without a cross-sectional luminal stenosis. Normal right A1 segments of the anterior cerebral artery. Normal left A1 segments of the anterior cerebral artery. Normal intact anterior communicating artery (ACOM). Normal bilateral A2 segments of the anterior cerebral arteries. Normal right M1 and M2 segments of the middle cerebral arteries, with a normal M1 bifurcation. Normal left M1 and M2 segments of the middle cerebral arteries, with a normal M1 bifurcation. Normal right posterior communicating artery (PCOM). Normal left posterior communicating artery (PCOM). Normal bilateral vertebral arteries. Normal basilar artery with a normal basilar bifurcation. The visualized bilateral superior cerebellar (SCA) arteries are normal. Normal bilateral P1, P2 and visualized P3 segments of the posterior cerebral arteries. There is no demonstrated aneurysm of the [place] of [place]. There is no demonstrated abnormality of the visualized brain. AORTIC ARCH: There is atherosclerotic calcific plaque formation of the aortic arch and great vessels arising from the aortic arch, without a hemodynamically significant stenosis. There is a normal origin of the brachiocephalic, left common carotid, and left subclavian arteries. RIGHT CAROTID ARTERIES: Normal right common carotid artery (CCA). Normal right common carotid bulb. There is mild atherosclerotic plaque formation of the origin of the right internal carotid artery with less than 50% cross sectional diameter stenosis. Normal visualized cervical portion of the right internal carotid artery. Normal origin of the right external carotid artery (ECA). LEFT CAROTID ARTERIES: Normal left common carotid artery (CCA). Normal left common carotid bulb. There is mild atherosclerotic plaque formation of the origin of the left internal carotid artery with less than 50% cross sectional diameter stenosis. Normal visualized cervical portion of the left internal carotid artery. Normal origin of the left external carotid artery (ECA). VERTEBRAL ARTERIES: There is enhancement within the bilateral vertebral arteries with a small right vertebral artery, and a dominant left vertebral artery. CT/CTA Head AND Neck W/ Contrast IMPRESSION: Mild atherosclerotic plaque formation at the origin of the right and left internal carotid arteries. Electronically Signed: Bernardo Leonard MD at 10:09 EDT ,
[2022-12-31 08:59] LABS: Absolute Lymphocyte Count 2.38 X10^3/uL (0.83-4.51); Basophil# 0.03 X10^3/uL; Basophil% 0.7 % (0-1); Eosinophil# 0.16 X10^3/uL; Eosinophils% 3.7 % (0-5); Hemoglobin 13.9 g/dL (12.0-15.0); Lymphocyte # 2.38 X10^3/ul (0.83-4.51); Lymphocyte % 54.8 % (19-41); Mean Corp Hgb Conc 33.9 g/dL (32-36); Mean Corpuscular Hgb 33.7 pg (27.0-32.0); Mean Corpuscular Volume 99.5 fL (81-99); Mean Platelet Vol. 12.3 fl (6.2-12.0); Monocyte# 0.75 X10^3/uL; Monocyte% 17.3 % (0-10); NRBC Flagged by Analyzer 0 % (0-5); Neutrophil # 1.01 X10^3/uL (2.7-7.7); Neutrophil % 23.3 % (47-70); Platelet Count 209 K/mm3 (150-450); RBC Distribution Width CV 12.7 % (11.6-14.6); Red Blood Count 4.12 M/mm3 (4.2-5.4); White Blood Count 4.3 K/mm3 (4.4-11.0)
[2022-12-31] MEDS: 0.9% Normal Saline (1000mL) 1,000 ML 150 ML IV (09:10)
[2022-12-31] MEDS: Ondansetron 4 MG/2 ML Vial IV (09:11)
[2022-12-31 09:19] LABS: Anion Gap 4 (5-15); BUN 17 mg/dL (7-18); BUN/Creat Ratio 19.6 RATIO (10-20); CRP < 2.90 mg/L (0.0-3.0); Calcium,Total 9.3 mg/dL (8.5-10.1); Chloride 107 mmol/L (98-107); Creatinine, Serum 0.87 mg/dL (0.55-1.02); EST Glomerular Filtration Rate 69 mL/min (>60); Est Glom Filt Rate - Afr Amer 84 mL/min (>60); Estimated Creatinine Clearance 54.18 ml/min; Glucose 114 mg/dL (74-106); Potassium 3.8 mmol/L (3.5-5.1); Sodium Level 140 mmol/L (136-145)
--- NOTE | 2022-12-31 09:20 | EX.ED.DYSGE1 ---
HPI History of Present Illness Chief Complaint: Neuro S/Sx Detail of Chief Complaint: Vision changes Informant: patient Narrative Narrative: Patient presents secondary to vision changes. She reports having a foreign body sensation in her right eye for the past 2 weeks. Over the past couple days she had some very mild blurred vision from the right. She woke at 530 this morning with double vision. Patient states with both eyes open she will see 2 objects 1 above the other. When she closes 1 eye she only sees 1 object. She reports slight pressure behind her right eye. She does report history of cataracts but is never required surgery and does not wear glasses or contacts. [facility] Medical History (Updated 12/31/22 @ 11:[address] Coreen Jones MD) Nicotine dependence Non-STEMI (non-ST elevated myocardial infarction) (04/18/18) Takotsubo cardiomyopathy (04/18/18) Home Medications sertraline 100 mg tablet 100 mg PO BID depression 02/09/16 [History Last Taken 05/30/17] calcium carbonate-vitamin D3 600 mg-125 unit tablet 1 ea PO DAILY suppliment 04/18/18 [History Last Taken Unknown] folic acid 400 mcg tablet 0.4 mg PO DAILY@0800 suppliment 04/18/18 [History Last Taken Unknown] ksjrnlsj-wnq-bllgn ac 400 mcg-calcium carb 500 mg-vit K1 20 mcg tablet 1 ea PO DAILY suppliment 04/18/18 [History Last Taken Unknown] cholecalciferol (vitamin D3) 25 mcg (1,000 unit) capsule 1,000 unit PO DAILY 06/01/18 [History Last Taken Unknown] buspirone 10 mg tablet 10 mg PO BID 05/03/19 [History Last Taken Unknown] alprazolam 0.25 mg tablet 0.25 mg PO QHS PRN 05/03/20 [History Last Taken Unknown] hydrocodone-acetaminophen 5-325mg 5mg-325mg 1 tab PO Q4H PRN pain 5 days #20 tabs 07/01/21 [Rx Last Taken Unknown] lisinopril 20 mg tablet 20 mg PO DAILY #90 tabs 07/30/22 [Rx Last Taken Unknown] metoprolol succinate 25 mg tablet,extended release 24 hr (Toprol XL) 25 mg PO DAILY #90 tabs 07/30/22 [Rx Last Taken Unknown] amoxicillin 500 mg capsule 500 mg PO BID 3 days #6 caps 11/15/22 [Rx Last Taken Unknown] Allergy/AdvReac Type Severity Reaction Status Date / Time Iodinated Contrast Media AdvReac Vomiting Verified 12/31/22 08:09 [Iodinated Contrast Media - IV Dye] Family History Mother Heart disease Father Heart disease Surgical History History of bunionectomy of left great toe History of hysterectomy History of left heart catheterization (04/18/18) History of open reduction and internal fixation (ORIF) procedure Social History Smoking Status: Current every day smoker tobacco type: cigarettes ROS ROS ED Constitutional Constitutional ED: Denies chills or fever(s) Eyes Eyes: Reports change in vision ENT ENT ED: Denies rhinorrhea or sore throat Cardiovascular Cardiovascular: Denies chest pain or palpitations Respiratory/Chest Respiratory/Chest: Denies cough or dyspnea Gastrointestinal Gastrointestinal: Denies abdominal pain, nausea or vomiting Musculoskeletal Musculoskeletal: Denies back pain or extremity pain Integumentary Denies Abrasions or rash Neurologic Neurologic: Denies headache(s), paresthesias or weakness Psychiatric Psychiatric: Denies anxiety or depression Allergic/Immunologic Allergic/Immunologic ED: Denies lip swelling or urticaria EXAM Physical Exam Const Vital Signs: 12/31/22 08:09 Temperature 96.2 F L Temperature Source Temporal Pulse Rate 85 Respiratory Rate 14 Blood Pressure 177/66 H Blood Pressure Mean 103 Pulse Ox 98 Oxygen Delivery Method Room Air Positive well nourished and well developed General Appearance ED: well developed HEENT Reports normocephalic and head/scalp atraumatic Eyes PERRL and EOMs intact bilaterally Neck supple Chest Wall inspection of chest normal and palpation of chest normal Resp normal respiratory effort and clear to auscultation bilaterally Cardio regular rate and regular rhythm GI normal to inspection, nondistended, normoactive bowel sounds Palpation: soft Extremity normal to inspection Neuro oriented x3 and no sensory deficits noted Neuro Narrative: Patient reports double vision with both eyes open. Extract movements appear to be intact and symmetric. Pupils are equal and reactive. 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 EKG obtained to evaluate for cardiac arrhythmia/ischemia. Labwork obtained to evaluate for leukocytosis, anemia, and electrolyte derangement. CTA of the head and neck obtained to evaluate for stroke, aneurysm, trauma. She does have a documented history of IV contrast allergy. She states this causes vomiting. This was found when she was eating clams in [place]. She has had a heart cath in the past without difficulty. I did speak with CT scan and they are comfortable scanning her with IV contrast. I will give her a dose of Zofran out of precaution. She denies having any rash, swelling, difficulty breathing. History & Record Review Discussion w/independent historian: Patient and Family Lab Data Attestation: I reviewed the patient's lab results. Labs: Laboratory Results - last 24 hr 12/31/22 08:17 WBC 4.3 L RBC 4.12 L Hgb 13.9 Hct 41.0 MCV 99.5 H MCH 33.7 H MCHC 33.9 RDW Std Deviation 46.0 H RDW Coeff of Dick 12.7 Plt Count 209 MPV 12.3 H Immature Gran % (Auto) 0.200 Neut % (Auto) 23.3 L Lymph % (Auto) 54.8 H [place] % (Auto) 17.3 H Eos % (Auto) 3.7 Baso % (Auto) 0.7 Absolute Neuts (auto) 1.0 L Absolute Lymphs (auto) 2.38 Nucleated RBC % 0 ESR 9 Sodium 140 Potassium 3.8 Chloride 107 Carbon Dioxide 29.0 Anion Gap 4 L BUN 17 Creatinine 0.87 Estim Creat Clear Calc 54.18 Est GFR (MDRD) Af Amer 84 Est GFR (MDRD) Non-Af 69 BUN/Creatinine Ratio 19.6 Glucose 114 H Calcium 9.3 C-React Prot Ext Range < 2.90 Radiography Diagnostic Testing: Clinical Impression(s) from Imaging Studies Head/Neck CTA 12/31/22 08:50 IMPRESSION: Mild atherosclerotic plaque formation at the origin of the right and left internal carotid arteries. Electronically Signed: Bernardo Leonard MD at 10:09 EDT , EKG Initial EKG: Attestation: I personally reviewed and interpreted this EKG as follows: Interpretation: Sinus Rhythm (Sinus at 70 with no acute ischemia.) Treatment and Re-Evaluation :: CBC reveals low white count 4.3 which appears consistent with her prior labs. Hemoglobin is normal at 13.9. Chemistry studies unremarkable. Sed rate and CRP are both normal. CTA of the head and neck reveals mild atherosclerotic plaque formation at the origin of the right and left internal carotids. No evidence of aneurysm. I spoke with Dr. Méndez, on-call for ophthalmology. He would like to see the patient in the office either this afternoon or tomorrow. Patient will call when she gets home for follow-up. Patient is comfortable this plan and return instructions have been given. Discharge Plan Triage Chief Complaint: Neuro S/Sx ED Provider: Coreen Jones Dx/Rx/DC Orders Clinical Impression: Diplopia Instructions: ED Double Vision (Diplopia) Prescriptions: No Action cholecalciferol (vitamin D3) 1,000 unit capsule 1,000 unit capsule 1,000 unit PO DAILY buspirone 10 mg tablet 10 mg PO BID alprazolam 0.25 mg tablet 0.25 mg PO QHS PRN Patient Comments: ONE TABLET BY MOUTH DAILY NEEDED FOR SLEEP/ANXIETY sertraline 100 MG tablet 100 mg PO BID folic acid 0.4 MG tablet 0.4 mg PO DAILY@0800 calcium carbonate-vitamin D3 1 EACH tablet 1 ea PO DAILY [id number] carb-K1 1 EACH tablet 1 ea PO DAILY hydrocodone-acetaminophen 5-325 mg tablet 1 tab PO Q4H PRN (Reason: pain) 5 Days Qty: 20 0RF amoxicillin 500 mg capsule 500 mg PO BID 3 Days Qty: 6 0RF metoprolol succinate [Toprol XL] 25 mg tablet extended release 24 hr 25 mg PO DAILY Qty: 90 3RF lisinopril 20 mg tablet 20 mg PO DAILY Qty: 90 4RF Primary Care Provider: Monika Fu Referrals: Lenard éMndez MD [Med Staff - Active Staff] - As soon as possible Monika Fu DO [Primary Care Provider] - Disposition Disposition: Home, Self Care
[2022-12-31 09:38] LABS: Erythrocyte Sedimentation Rate 9 mm/hr (0-30)
[2022-12-31 11:35] VITALS: BP 164/85; PULSE 75; RESP 17; O2SAT 95
== END 2022-12-31 11:38 | disposition home or self-care (01) ==
PROVIDERS: Emergency Provider Emergency Medicine; PCP Family Medicine; Visit Provider Emergency Medicine
DX: H53.2 Diplopia (principal); F17.210 Nicotine dependence, cigarettes, uncomplicated; I25.2 Old myocardial infarction; I5A Non-ischemic myocardial injury (non-traumatic); Z90.710 Acquired absence of both cervix and uterus
CPT/HCPCS: 70496; 70498; 80048; 85025; 85652; 86140; 93005; 96361; 96374; 99283; J7030; Q9967; A4216; J2405

== ENCOUNTER → 2022-12-31 | Outpatient (CLI) | payer OTHER, SELFPAY | END | disposition home or self-care (01) | PROVIDERS: PCP Family Medicine; Referring Provider Ophthalmology; Visit Provider Ophthalmology | DX: H53.2 Diplopia (principal) | CPT/HCPCS: 36415; 84238 ==

== ENCOUNTER 2023-09-03 07:04 | Outpatient (RCR) | payer OTHER, SELFPAY ==
[2023-09-03 08:10] VITALS: BP 205/84; PULSE 63; RESP 18; TEMP 36.9; BMI 21.4
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
--- NOTE | 2023-09-07 08:41 | WC ---
09/03/2023 LEFT MEDIAL THIGH (I)
== END 2023-09-03 23:59 | disposition home or self-care (01) ==
LOC: WC 07:04
PROVIDERS: PCP Family Medicine; Referring Provider Family Medicine; Visit Provider Surgery
DX: T23.252A Burn of second degree of left palm, initial encounter (principal); T24.212A Burn of second degree of left thigh, initial encounter; X19.XXXA Contact with other heat and hot substances, initial encounter; I51.81 Takotsubo syndrome; I10 Essential (primary) hypertension; Z71.6 Tobacco abuse counseling; F17.210 Nicotine dependence, cigarettes, uncomplicated; Z79.899 Other long term (current) drug therapy; I25.2 Old myocardial infarction
CPT/HCPCS: 11042; 11045; 99213; G0463

== ENCOUNTER 2023-09-21 14:30 | Outpatient (RCR) | payer OTHER, SELFPAY ==
[2023-09-04 02:42] VITALS: BP 205/84; PULSE 63; RESP 18; TEMP 36.9; BMI 21.4
[2023-09-07 10:14] VITALS: BP 156/78; PULSE 68; RESP 18; TEMP 36.6; BMI 21.4
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
[2023-09-14 14:51] VITALS: BP 159/85; PULSE 72; RESP 18; TEMP 35.6; BMI 21.4
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
--- NOTE | 2023-09-15 11:26 | WC ---
09/14/2023 LEFT HAND PALM
[2023-09-21 14:27] VITALS: BP 156/82; PULSE 82; RESP 16; BMI 21.4
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
== END 2023-09-21 15:30 | disposition home or self-care (01) ==
LOC: WC 14:30
PROVIDERS: PCP Family Medicine; Referring Provider Family Medicine; Visit Provider Surgery
DX: T24.212A Burn of second degree of left thigh, initial encounter (principal); T23.252A Burn of second degree of left palm, initial encounter; X19.XXXA Contact with other heat and hot substances, initial encounter; I10 Essential (primary) hypertension; I51.81 Takotsubo syndrome; Z71.6 Tobacco abuse counseling; F17.210 Nicotine dependence, cigarettes, uncomplicated; I25.2 Old myocardial infarction; Z79.899 Other long term (current) drug therapy
CPT/HCPCS: 97597; 97598; 99212; 99213; G0463

== ENCOUNTER 2024-02-19 09:55 | Inpatient (IN) | payer OTHER, MEDICARE, SELFPAY ==
[2024-02-19 09:56] VITALS: BP 131/71; PULSE 83; RESP 18; TEMP 35.6; O2SAT 98; BMI 21.4
--- NOTE | 2024-02-19 10:26 | RAD_ITS ---
HISTORY: Trauma. TECHNIQUE: XR Hip Unilateral with Pelvis when performed; 2-3 Views. COMPARISON: 12/11/2013. FINDINGS: OSSEOUS STRUCTURES: Nondisplaced subcapital right femoral neck fracture with mild linear sclerosis laterally and small cortical linear lucency medially. Note that overlapping bowel shadows may obscure osseous detail. Probable small bone island or calcification overlying the right sacrum. JOINT SPACES: No dislocation. Mild degenerative changes of the hips. SOFT TISSUES: Vascular calcifications present. RAD/HIP, UNI W/ Pelvis 2-3 Views IMPRESSION: Nondisplaced subcapital right femoral neck fracture. Electronically Signed: Sania Pritchard MD at 11:32 EST ,
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
[2024-02-19] MEDS: oxyCODONE 5 MG Tablet PO (10:31)
[2024-02-19 11:24] VITALS: BP 158/77; PULSE 74; RESP 16; TEMP 37.1; O2SAT 98
--- NOTE | 2024-02-19 11:50 | EKG12_ITS ---
Test Reason : ARRYTH Blood Pressure : */* mmHG Vent. Rate : 74 BPM Atrial Rate : 74 BPM P-R Int : 132 ms QRS Dur : 72 ms QT Int : 398 ms P-R-T Axes : 41 -20 11 degrees QTcB Int : 441 ms Normal sinus rhythm Minimal voltage criteria for LVH, may be normal variant ( R in aVL ) Borderline ECG Confirmed by CLEM SHEIKH, TRAY ([id number]), news editor ADRIAN CAMACHO ([id number]) on 02/21/2024 9:42:01 AM Referred By: Confirmed By: TRAY NJ MD
--- NOTE | 2024-02-19 12:05 | RAD_ITS ---
HISTORY: preoperative, cad. TECHNIQUE: XR Chest 1 View. COMPARISON: 01/31/2021. FINDINGS: CARDIOMEDIASTINAL BORDERS: Cardiac silhouette within normal limits in size. Mediastinal contour also unchanged with calcification of the aortic knob. LUNGS: Radiographically clear. PLEURA: No pleural effusion or pneumothorax seen. OSSEOUS STRUCTURES: Old right sixth rib fracture. RAD/Chest 1 View (Portable) IMPRESSION: No acute cardiopulmonary process identified. Electronically Signed: Sania Pritchard MD at 12:45 EST ,
[2024-02-19 12:13] LABS: Absolute Lymphocyte Count 1.61 X10^3/uL (0.83-4.51); Absolute Neutrophil Count 2.7 X10^3/uL (2.0-7.7); Basophil# 0.03 X10^3/uL; Basophil% 0.5 % (0-1); Eosinophils% 1.8 % (0-5); Hematocrit 38.6 % (37-47); Hemoglobin 12.6 g/dL (12.0-15.0); Lymphocyte # 1.61 X10^3/ul (0.83-4.51); Lymphocyte % 28.6 % (19-41); Mean Corp Hgb Conc 32.6 g/dL (32-36); Mean Corpuscular Hgb 32.2 pg (27.0-32.0); Mean Corpuscular Volume 98.7 fL (81-99); Monocyte# 1.12 X10^3/uL; Monocyte% 19.9 % (0-10); NRBC Flagged by Analyzer 0 % (0-5); Neutrophil # 2.74 X10^3/uL (2.7-7.7); Neutrophil % 48.8 % (47-70); Platelet Count 254 K/mm3 (150-450); RBC Distribution Width CV 12.3 % (11.6-14.6); RBC Distribution Width SD 45.1 fl (35.1-43.9); Red Blood Count 3.91 M/mm3 (4.2-5.4); White Blood Count 5.6 K/mm3 (4.4-11.0)
[2024-02-19 12:31] LABS: ALB/GLOB Ratio 0.8 RATIO (0.9-2.4); AST(SGOT) 16 U/L (15-37); Alanine Aminotransfer ALT/SGPT 20 U/L (13-56); Albumin, Serum 3.4 g/dL (3.2-5.0); Alkaline Phosphatase 113 U/L (45-117); Anion Gap 4 (5-15); BUN 24 mg/dL (7-18); BUN/Creat Ratio 25.3 RATIO (10-20); Calcium,Total 9.3 mg/dL (8.5-10.1); Chloride 106 mmol/L (98-107); Creatinine, Serum 0.95 mg/dL (0.55-1.02); EST Glomerular Filtration Rate 62 mL/min (>60); Est Glom Filt Rate - Afr Amer 75 mL/min (>60); Estimated Creatinine Clearance 48.94 ml/min; Globulin 4.1 g/dL (2.2-4.2); Glucose 90 mg/dL (74-106); Protein, Total 7.5 g/dL (6.4-8.2); Sodium Level 138 mmol/L (136-145)
[2024-02-19 12:40] VITALS: BP 158/77; PULSE 74; RESP 16; TEMP 37.1; O2SAT 98
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
[2024-02-19] MEDS: Ondansetron 4 MG/2 ML Vial IM (14:03)
[2024-02-19] MEDS: Morphine 4 MG/ML Syringe IV (14:03)
[2024-02-19 14:49] VITALS: BP 167/79; PULSE 74; RESP 16; TEMP 37.4; O2SAT 100
[2024-02-19 14:59] VITALS: BMI 21.8
[2024-02-19] MEDS: Acetaminophen 500 MG Tablet 1000 MG PO ×2 (15:41→22:04)
[2024-02-19] MEDS: busPIRone 5 MG Tablet 10 MG PO ×2 (16:36→22:04)
[2024-02-19 20:47] VITALS: RESP 15; O2SAT 95
[2024-02-19 21:55] VITALS: BP 169/102; PULSE 69; RESP 15; TEMP 36.8; O2SAT 94
[2024-02-19] MEDS: Sertraline 100 MG Tablet PO (22:04)
[2024-02-20] VITALS (19 sets, daily range): BP systolic 135–188; BP diastolic 69–102; PULSE 68–82; RESP 10–18; TEMP 36.1–37.5; O2SAT 83–99; BMI 21.8
[2024-02-20 06:33] LABS: Absolute Lymphocyte Count 1.47 X10^3/uL (0.83-4.51); Absolute Neutrophil Count 1.6 X10^3/uL (2.0-7.7); Basophil# 0.02 X10^3/uL; Basophil% 0.5 % (0-1); Eosinophil# 0.14 X10^3/uL; Eosinophils% 3.5 % (0-5); Hematocrit 37.4 % (37-47); Hemoglobin 12.1 g/dL (12.0-15.0); Lymphocyte # 1.47 X10^3/ul (0.83-4.51); Lymphocyte % 36.9 % (19-41); Mean Corp Hgb Conc 32.4 g/dL (32-36); Mean Corpuscular Hgb 31.7 pg (27.0-32.0); Mean Corpuscular Volume 97.9 fL (81-99); Mean Platelet Vol. 11.3 fl (6.2-12.0); Monocyte# 0.77 X10^3/uL; Monocyte% 19.3 % (0-10); NRBC Flagged by Analyzer 0 % (0-5); Neutrophil # 1.58 X10^3/uL (2.7-7.7); Neutrophil % 39.8 % (47-70); Platelet Count 221 K/mm3 (150-450); RBC Distribution Width CV 12.3 % (11.6-14.6); RBC Distribution Width SD 44.6 fl (35.1-43.9); Red Blood Count 3.82 M/mm3 (4.2-5.4)
[2024-02-20 07:02] LABS: Anion Gap 4 (5-15); BUN 20 mg/dL (7-18); BUN/Creat Ratio 23.9 RATIO (10-20); Calcium,Total 8.9 mg/dL (8.5-10.1); Chloride 108 mmol/L (98-107); Creatinine, Serum 0.84 mg/dL (0.55-1.02); EST Glomerular Filtration Rate 72 mL/min (>60); Est Glom Filt Rate - Afr Amer 87 mL/min (>60); Estimated Creatinine Clearance 53.02 ml/min; Glucose 106 mg/dL (74-106); Magnesium 1.8 mg/dL (1.6-2.6); Phosphorus 3.3 mg/dL (2.5-4.9); Potassium 3.8 mmol/L (3.5-5.1); Sodium Level 138 mmol/L (136-145)
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
--- NOTE | 2024-02-20 07:23 | PCM.PN.HOSP ---
Reason for Visit Reason for Visit: Diagnoses Unspecified intracapsular fracture of right femur, initial encounter for closed fracture (02/19/24) Subjective Subjective Patient scheduled to undergo ORIF Objective Data Objective Data Vital Signs: Vital Signs Temp Pulse Resp BP Pulse Ox O2 Del Method 97.7 F L 70 15 186/102 H 95 Room Air 02/20/24 07:20 02/20/24 07:20 02/20/24 07:20 02/20/24 07:20 02/20/24 07:20 02/20/24 07:20 Oxygen Delivery Method Room Air Weight: 56.6 kg Body Mass Index (BMI) 21.8 Intake & Output: Intake and Output for Last 24 Hours 02/18/24 02/19/24 02/20/24 23:59 23:59 23:59 Intake Total 400 / 400 Output Total 900 / 900 Balance -500 / -500 Lab / Micro Data 02/20/24 05:36 02/20/24 05:36 Labs: Laboratory Results - last 24 hr 02/19/24 11:59: WBC 5.6, RBC 3.91 L, Hgb 12.6, Hct 38.6, MCV 98.7, MCH 32.2 H, MCHC 32.6, RDW Std Deviation 45.1 H, RDW Coeff of Dick 12.3, Plt Count 254, MPV 11.0, Immature Gran % (Auto) 0.400, Neut % (Auto) 48.8, Lymph % (Auto) 28.6, [place] % (Auto) 19.9 H, Eos % (Auto) 1.8, Baso % (Auto) 0.5, Absolute Neuts (auto) 2.7, Absolute Lymphs (auto) 1.61, Nucleated RBC % 0, Sodium 138, Potassium 4.0, Chloride 106, Carbon Dioxide 28.0, Anion Gap 4 L, BUN 24 H, Creatinine 0.95, Estim Creat Clear Calc 48.94, Est GFR (MDRD) Af Amer 75, Est GFR (MDRD) Non-Af 62, BUN/Creatinine Ratio 25.3 H, Glucose 90, Calcium 9.3, Total Bilirubin 0.40, AST 16, ALT 20, Alkaline Phosphatase 113, Total Protein 7.5, Albumin 3.4, Globulin 4.1, Albumin/Globulin Ratio 0.8 L, Blood Type A POSITIVE, Antibody Screen NEGATIVE 02/20/24 05:36: WBC 4.0 L, RBC 3.82 L, Hgb 12.1, Hct 37.4, MCV 97.9, MCH 31.7, MCHC 32.4, RDW Std Deviation 44.6 H, RDW Coeff of Dick 12.3, Plt Count 221, MPV 11.3, Immature Gran % (Auto) 0.000, Neut % (Auto) 39.8 L, Lymph % (Auto) 36.9, [place] % (Auto) 19.3 H, Eos % (Auto) 3.5, Baso % (Auto) 0.5, Absolute Neuts (auto) 1.6 L, Absolute Lymphs (auto) 1.47, Nucleated RBC % 0, Sodium 138, Potassium 3.8, Chloride 108 H, Carbon Dioxide 27.0, Anion Gap 4 L, BUN 20 H, Creatinine 0.84, Estim Creat Clear Calc 53.02, Est GFR (MDRD) Af Amer 87, Est GFR (MDRD) Non-Af 72, BUN/Creatinine Ratio 23.9 H, Glucose 106, Calcium 8.9, Phosphorus 3.3, Magnesium 1.8 Radiography Diagnostic Testing: Radiology Impression Hip/Pelvis X-Ray 02/19/24 10:26 IMPRESSION: Nondisplaced subcapital right femoral neck fracture. Electronically Signed: Sania Pritchard MD at 11:32 EST , Chest X-Ray 02/19/24 12:05 IMPRESSION: No acute cardiopulmonary process identified. Electronically Signed: Sania Pritchard MD at 12:45 EST , Physical Exam Narrative GENERAL: cooperative HEENT: Atraumatic; normocephalic EYES; Anicteric, Normal Conjunctiva NECK; supple, normal thyroid, RESPIRATORY: Diminished to auscultation CARDIOVASCULAR: Regular S1 S2, GI: soft, normoactive bowel sounds, : No Renal angle tenderness; EXTREMITIES: No edema, no clubbing, MUSCULOSKELETAL: no muscle wasting NEURO: Awake; no lateralizing signs. SKIN: No Rash PSYCH; Flat affect Assessment & Plan Assessment/Plan (1) Subcapital fracture of right hip: PLAN: Plan Patient is a 68-year-old lady presenting with right hip pain following a fallimaging studies demonstrated nonndisplaced subcapital right femoral neck fracture. 1. Fall with Nondisplaced subcapital right femoral neck fracture. ? Patient has been admitted to regular nursing floor treatment initiated with immobilization, pain management and consult placed to orthopedics surgery. Dr. Han Jordan orthopedic surgeon on-call was notified on admission. ? 02/20/2024; patient underwent R Hip pinning by Dr. Han Jordan on 02/20/2024 2. Hypertension ? Blood pressure controlled, home medications continued with dose adjustment as needed 3. Tobacco dependence ? Counseled on cessation, offered nicotine patch for tobacco cravings 4. History of Takotsubo cardiomyopathy ? Currently remains stable 4. Depression with anxiety ? Patient is on sertraline as well as alprazolam did continue home medications 6. History of chronic alcohol dependence ? Patient currently not at risk for withdrawal but will monitor closely 7. DVT prophylaxis plan is to initiate chemoprophylaxis following patient surgical intervention ? 02/20/2024 ordered enoxaparin to start on 02/21/2024 Time spent in the patient's overall evaluation,decision-making process, review of diagnostic data, adjustment of management, discussion with other providers, nursing nursing and ancillary staff involved in patient's care documentation, 38 Minutes Charges/Coding Visit Charges Inpatient E&M: 92129 Subs Hosp L2
[2024-02-20] MEDS: Metoprolol(XL)Succ 25 MG Tablet PO (07:41)
[2024-02-20] MEDS: Lisinopril 20 MG Tablet PO (07:41)
[2024-02-20] MEDS: Cefazolin 2 GM in Syringe IV (08:02)
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
--- NOTE | 2024-02-20 09:24 | PCM.OPRPT ---
Problems Associated Problem List Diagnoses (1) Subcapital fracture of right hip: Operative Report (Standard) Operative Information Surgery/Procedure Performed: R hip pinning Surgeon: Han Jordan Date of Procedure: 02/20/24 Procedure Start Time: 08:20 Procedure Stop Time: 09:25 Pre-Operative Diagnosis: Right hip fracture femoral neck Post-Operative Diagnosis: Same Select all DRAINS/GRAFTS/IMPLANTS that apply: None Type of Anesthesia: General Estimated Blood Loss: 10 Specimen collected: No Description of surgery: Preoperative diagnosis: Impacted nondisplaced right femoral neck fracture Post operative diagnosis: Same Procedure: R Hip pinning Surgeon: Dr. Han Jordan Mat Linker: Jerson PEÑALOZA Anesthesia: General, LMA Anesthesiologist: Dr. Arnett / TRAVELING CLERK Indications for surgery: Patient is a 68-year-old female fell February 18, 2024 injuring the hip. X-ray showed an impacted nondisplaced femoral neck fracture on the involved side. No obvious other fracture. Patient and the family explained her treatment options. They did wish to proceed with hip pinning Findings: Impacted hip fracture Details of procedure: Patient was taken to the OR and transferred to the OR table after being placed under an adequate anesthetic. Ancef was given IV preoperatively. СЕРГЕЙ hose and SCDs on the nonoperative limb. Operative sided foot was well-padded. Nonoperative lower extremity was padded and placed along the central post of the table padded out of harm's way. Right foot was placed in traction boot. With gentle rotation and no traction of lower extremity was positioned. X-ray brought in. AP lateral and oblique fluoroscopic images showed good position of the femoral neck fracture. Hip was prepped padded draped in the usual orthopedic sterile fashion for the procedure. With x-ray guidance a longitudinal incision was made over the lateral aspect of the thigh distal to the greater trochanter. Blunt dissection brought us down onto the lateral aspect of the proximal femur. Guide system was utilized for placement of our guidepins. 1 guidepin at the mid portion of the femur at the distal portion of the fracture into the femoral head. Another guidepin anterior and superior to that. Another guidepin posterior and superior to the first pin. Triangular construct. Good position of the guidepins on all views. Measurements done. Drilling through the lateral cortex only. Appropriate length screw, thread length, washer if needed. Each of the screws had an excellent purchase in bone. 3 Screws placed. Guide pins removed. Final set of AP lateral and fluoroscopic oblique images obtained and saved. We did place the fluoroscopic unit through an arc of motion confirming that the screws were within the femoral head and neck and not protruding. Incision site was well irrigated. No undue bleeding. Deep tissues closed with an 0 Vicryl in a [id number] fashion. Then inverted 2-0 Vicryl and skin ange, Mepilex bandage. Patient was awoken from the anesthetic and transferred to the room bed and to recovery room in satisfactory condition. Will be transferred back to the floor under the care of the hospitalist service. Surgical Findings: fracture Laminating Machine Operator agent producer: Yes Wood Pattern Maker: yes Tasks completed by assisted sales representative: Closing Complications Complications: No
--- NOTE | 2024-02-20 09:24 | PCM.POST.ANE ---
Anesthesia: Postop Eval I Current Vital Signs Temperature: 98.3 F Pulse Rate: 75 Blood Pressure: 178/85 Respiratory Rate: 16 Pulse Ox: 93 Oxygen Delivery Method: Nasal Cannula Oxygen Flow Rate (L/min): 4 Assessment Airway patent: Yes Spontaneous unlabored respirations: Yes Mental status: Awake and Calm nausea: No Vomiting: No Anesthesia Complication: No Fluid Hydration Crystalloid volume administer (ml): 900 Total IV fluid infused: 900 Progress Note Anesthesia document: Postop Eval 1 completed: Yes
--- NOTE | 2024-02-20 09:30 | PCM.POSTANE2 ---
Anesthesia Postop Eval I Sum Postop Eval Completion status Anesthesia document: Postop Eval 1 completed: Yes Anesthesia Postop Eval I Summary Anesthesia Postop Eval I Summary: Anesthesia Postop Eval I: Assessment Summary Airway patent Yes 02/20/24 09:28 Spontaneous unlabored Yes 02/20/24 09:28 respirations Mental status nausea Yes 02/20/24 09:28 Vomiting Yes 02/20/24 09:28 Anesthesia Postop Eval I: Fluid Summary Crystalloid volume administer 1,000 02/20/24 09:28 (ml) Colloids volume administered ( ml) Blood Product volume administered (ml) Total IV fluid infused 1,000 02/20/24 09:28 Anesthesia Postop Eval I: Summary Notes Anesthesia Complication No 02/20/24 09:28 Anesthesia Complication Comment: Post-operative progress note Anesthesia: Postop Eval II Evaluation Mental status: Awake Pain Level: 0 nausea: No Vomiting: No
--- NOTE | 2024-02-20 09:30 | POSTOPAN2_ITS ---
Anesthesia Postop Eval I Sum Postop Eval Completion status Anesthesia document: Postop Eval 1 completed: Yes Anesthesia Postop Eval I Summary Anesthesia Postop Eval I Summary: Anesthesia Postop Eval I: Assessment Summary Airway patent Yes 02/20/24 09:30 SKILLED NURSING FACILITY COUNSELOR.MEDM Spontaneous unlabored Yes 02/20/24 09:30 SKILLED NURSING FACILITY COUNSELOR.MEDM respirations Mental status Awake,Calm 02/20/24 09:30 SKILLED NURSING FACILITY COUNSELOR.MEDM nausea Yes 02/20/24 09:30 SKILLED NURSING FACILITY COUNSELOR.MEDM Vomiting Yes 02/20/24 09:30 SKILLED NURSING FACILITY COUNSELOR.MEDM Anesthesia Postop Eval I: Fluid Summary Crystalloid volume administer 1,000 02/20/24 09:30 SKILLED NURSING FACILITY COUNSELOR.MEDM (ml) Colloids volume administered ( ml) Blood Product volume administered (ml) Total IV fluid infused 1,000 02/20/24 09:30 SKILLED NURSING FACILITY COUNSELOR.MEDM Anesthesia Postop Eval I: Summary Notes Anesthesia Complication No 02/20/24 09:30 SKILLED NURSING FACILITY COUNSELOR.MEDM Anesthesia Complication Comment: Post-operative progress note Anesthesia: Postop Eval II Evaluation Mental status: Awake and Calm Pain Level: 3 nausea: No Vomiting: No Complications Anesthesia Complication: No
--- NOTE | 2024-02-20 09:30 | PCM.POSTANE2 ---
Anesthesia Postop Eval I Sum Postop Eval Completion status Anesthesia document: Postop Eval 1 completed: Yes Anesthesia Postop Eval I Summary Anesthesia Postop Eval I Summary: Anesthesia Postop Eval I: Assessment Summary Airway patent Yes 02/20/24 09:30 SECURITY RISK ANALYST.MEDM Spontaneous unlabored Yes 02/20/24 09:30 SECURITY RISK ANALYST.MEDM respirations Mental status Awake,Calm 02/20/24 09:30 SECURITY RISK ANALYST.MEDM nausea Yes 02/20/24 09:30 SECURITY RISK ANALYST.MEDM Vomiting Yes 02/20/24 09:30 SECURITY RISK ANALYST.MEDM Anesthesia Postop Eval I: Fluid Summary Crystalloid volume administer 1,000 02/20/24 09:30 SECURITY RISK ANALYST.MEDM (ml) Colloids volume administered ( ml) Blood Product volume administered (ml) Total IV fluid infused 1,000 02/20/24 09:30 SECURITY RISK ANALYST.MEDM Anesthesia Postop Eval I: Summary Notes Anesthesia Complication No 02/20/24 09:30 SECURITY RISK ANALYST.MEDM Anesthesia Complication Comment: Post-operative progress note Anesthesia: Postop Eval II Evaluation Mental status: Awake and Calm Pain Level: 3 nausea: No Vomiting: No Complications Anesthesia Complication: No
[2024-02-20] MEDS: Lactated Ringers 1,000 ML 15 ML IV (10:36)
[2024-02-20] MEDS: Folic Acid 1 MG Tablet 0.5 MG PO (13:45)
[2024-02-20] MEDS: Calcium Carb/Vitamin D 1 TABLET Tablet PO (13:46)
[2024-02-20] MEDS: Sertraline 100 MG Tablet PO ×2 (13:46→21:13)
[2024-02-20] MEDS: busPIRone 5 MG Tablet 10 MG PO ×2 (13:47→21:13)
[2024-02-20] MEDS: Acetaminophen 500 MG Tablet 1000 MG PO ×2 (13:47→21:12)
[2024-02-20] MEDS: Cefazolin 1 GM/50 ML BAG IV (15:15)
[2024-02-21] MEDS: Cefazolin 1 GM/50 ML BAG IV (00:02)
[2024-02-21 00:11] VITALS: BP 135/70; PULSE 68; RESP 15; TEMP 36.6; O2SAT 97
[2024-02-21 02:00] VITALS: O2SAT 94
[2024-02-21 03:02] VITALS: BMI 21.8
[2024-02-21] MEDS: Acetaminophen 500 MG Tablet 1000 MG PO (06:31)
[2024-02-21] MEDS: busPIRone 5 MG Tablet 10 MG PO (06:32)
[2024-02-21 07:02] VITALS: BMI 21.8
[2024-02-21 07:07] LABS: Absolute Lymphocyte Count 2.12 X10^3/uL (0.83-4.51); Absolute Neutrophil Count 0.9 X10^3/uL (2.0-7.7); Basophil# 0.01 X10^3/uL; Basophil% 0.3 % (0-1); Eosinophil# 0.11 X10^3/uL; Eosinophils% 2.8 % (0-5); Hematocrit 34.2 % (37-47); Hemoglobin 11.4 g/dL (12.0-15.0); Lymphocyte # 2.12 X10^3/ul (0.83-4.51); Lymphocyte % 53.9 % (19-41); Mean Corp Hgb Conc 33.3 g/dL (32-36); Mean Corpuscular Hgb 32.7 pg (27.0-32.0); Mean Platelet Vol. 11.1 fl (6.2-12.0); Monocyte# 0.82 X10^3/uL; Monocyte% 20.9 % (0-10); NRBC Flagged by Analyzer 0 % (0-5); Neutrophil # 0.86 X10^3/uL (2.7-7.7); Neutrophil % 21.8 % (47-70); POSITIVE DIFFERENTIAL YES; Platelet Count 215 K/mm3 (150-450); RBC Distribution Width SD 43.3 fl (35.1-43.9); Red Blood Count 3.49 M/mm3 (4.2-5.4); White Blood Count 3.9 K/mm3 (4.4-11.0)
[2024-02-21 07:41] LABS: Differential Indicated SCAN CRITERIA MET
[2024-02-21 07:45] VITALS: BP 176/80; PULSE 70; RESP 16; TEMP 36.7; O2SAT 95
[2024-02-21 07:47] VITALS: BP 176/80; PULSE 70
[2024-02-21] MEDS: Metoprolol(XL)Succ 25 MG Tablet PO (07:47)
[2024-02-21] MEDS: Sertraline 100 MG Tablet PO (07:47)
[2024-02-21] MEDS: Lisinopril 20 MG Tablet PO (07:47)
[2024-02-21] MEDS: Folic Acid 1 MG Tablet 0.5 MG PO (07:47)
[2024-02-21 07:48] LABS: Anion Gap 5 (5-15); BUN 18 mg/dL (7-18); BUN/Creat Ratio 21.8 RATIO (10-20); Calcium,Total 8.9 mg/dL (8.5-10.1); Chloride 107 mmol/L (98-107); Creatinine, Serum 0.82 mg/dL (0.55-1.02); EST Glomerular Filtration Rate 73 mL/min (>60); Est Glom Filt Rate - Afr Amer 88 mL/min (>60); Estimated Creatinine Clearance 54.32 ml/min; Glucose 105 mg/dL (74-106); Potassium 3.9 mmol/L (3.5-5.1); Sodium Level 141 mmol/L (136-145)
--- NOTE | 2024-02-21 09:05 | PCM.PN.HOSP ---
Reason for Visit Reason for Visit: Diagnoses Unspecified intracapsular fracture of right femur, initial encounter for closed fracture (02/19/24) Objective Data Objective Data Vital Signs: Vital Signs Temp Pulse Resp BP Pulse Ox O2 Del Method O2 Flow Rate 98.1 F 70 16 176/80 H 95 Room Air 2 02/21/24 07:45 02/21/24 07:47 02/21/24 07:45 02/21/24 07:47 02/21/24 07:45 02/21/24 08:43 02/20/24 13:10 Oxygen Flow Rate (L/min) 2 Oxygen Delivery Method Room Air Weight: 56.6 kg Body Mass Index (BMI) 21.8 Intake & Output: Intake and Output for Last 24 Hours 02/19/24 02/20/24 02/21/24 23:59 23:59 23:59 Intake Total 1470 / 1770 450 / 450 Output Total 1350 / 1350 Balance 120 / 420 450 / 450 Lab / Micro Data 02/21/24 06:31 02/21/24 06:31 Labs: Laboratory Results - last 24 hr 02/21/24 06:31: WBC 3.9 L, RBC 3.49 L, Hgb 11.4 L, Hct 34.2 L, MCV 98.0, MCH 32.7 H, MCHC 33.3, RDW Std Deviation 43.3, RDW Coeff of Dick 12.0, Plt Count 215, MPV 11.1, Immature Gran % (Auto) 0.300, Neut % (Auto) 21.8 L, Lymph % (Auto) 53.9 H, [facility] % (Auto) 20.9 H, Eos % (Auto) 2.8, Baso % (Auto) 0.3, Absolute Neuts (auto) 0.9 L, Absolute Lymphs (auto) 2.12, Nucleated RBC % 0, Sodium 141, Potassium 3.9, Chloride 107, Carbon Dioxide 29.0, Anion Gap 5, BUN 18, Creatinine 0.82, Estim Creat Clear Calc 54.32, Est GFR (MDRD) Af Amer 88, Est GFR (MDRD) Non-Af 73, BUN/Creatinine Ratio 21.8 H, Glucose 105, Calcium 8.9 Radiography Diagnostic Testing: Radiology Impression Hip/Pelvis X-Ray 02/20/24 07:02 IMPRESSION: 2 intraoperative images showing 3 cannulated screws traversing the femoral neck. No complications. Electronically Signed: Albaro Esets MD at 23:57 EST , Assessment & Plan Assessment/Plan (1) Subcapital fracture of right hip: QUALIFIERS: Encounter type: initial encounter Fracture type: closed Qualified Code(s): S72.011A - Unspecified intracapsular fracture of right femur, initial encounter for closed fracture PLAN: Plan # Fall with nondisplaced subcapital right femoral neck fracture -Patient's status post right hip pinning with Dr. Han Jordan on 02/20/2024 -PT/OT -Case management/social work -Pain control -Supportive care #Hypertension -Patient remains quite hypertensive despite lisinopril 20 and metoprolol, will add amlodipine #Depression/anxiety -Continue home medications #Tobacco use -Advise cessation -Nicotine replacement available if desired #DVT ppx: Lovenox subcu to start 02/20 Anh Rolle MD Charges/Coding Visit Charges Inpatient E&M: 15922 Subs Hosp L1
--- NOTE | 2024-02-21 09:27 | CASEMGMT ---
EMMETT POLO Assessment: Face to Face with pt for initial transition planning/care coordination assessment. EMMETT POLO introduced self and role at [facility], pt voices understanding and consents to assessment. Pt is A&O x4 and answers all questions appropriately at this time. Pt sitting up in chair with at bedside. Pt states she just finished working with therapy and did well. Care providers, pharmacy, and demographics verified/updated. Admitting Dx: nondisplaced subcapital R femoral neck fracture Strata Score: 2 PCP:Nickie Specialists: Denies Preferred Pharmacy:[facility] Insurance: [employer], MCR A Prescription Benefit: yes LNOK: Isaías Maximino, Living Arrangements: Pt lives with in a single story home with 3 steps to enter. Pt reports prior to her fall, she was I in ADLs. Transportation: Pt drives self and denies concerns with transportation. Pt will transport her until she can drive again. DME:crutches, will borrow a FWW, shower chair HHC/SNF: Denies hx of Pt states no concerns with going home at time of dc. Pt asks if she can do her own therapy at home. Spoke to Rosa SAMSON who states pt really needs to have therapy to determine when she can bear more weight. Discussed this with pt and . Pt would like to go to outpt at [facility]. Provided pt with an outpt therapy rx as pt states she wants to set it up herself. Pt states no further concerns/needs. CM to follow. Advised pt to ask CM if any further question/concerns/needs arise, voices understanding. Pt Goal: Home with outpt therapy Plan: Home with outpt therapy Kati CHRISTINE CM
--- NOTE | 2024-02-21 09:34 | PN.ORTHO_ITS ---
Subjective Subjective Patient is s/p right hip pinning with Dr. Jordan 02/20/2024. Patient was admitted to the ER 02/18/2024 after a fall. X-rays revealed nondisplaced subcapital femoral neck fracture. Today patient resting comfortably in bed. states no pain at all. States taking Tylenol and oxycodone as needed and ice help to relieve pain. Patient has been up with therapy. Walking with the assit of a walker 25% weightbearing. Patient states she refused the lovenox injections because she feels she does not need them. Afebrile, no chest pain, shortness of breath, negative calf pain/ erythema, and no other signs of DVT. Objective Data Objective Data Vital Signs: Vital Signs Temp Pulse Resp BP Pulse Ox O2 Del Method O2 Flow Rate 98.1 F 70 16 176/80 H 95 Room Air 2 02/21/24 07:45 02/21/24 07:47 02/21/24 07:45 02/21/24 07:47 02/21/24 07:45 02/21/24 08:43 02/20/24 13:10 Oxygen Flow Rate (L/min) 2 Oxygen Delivery Method Room Air Weight: 56.6 kg Body Mass Index (BMI) 21.8 Intake & Output: Intake and Output for Last 24 Hours 02/19/24 02/20/24 02/21/24 23:59 23:59 23:59 Intake Total 1470 / 1770 450 / 450 Output Total 1350 / 1350 Balance 120 / 420 450 / 450 Lab / Micro Data 02/21/24 06:31 02/21/24 06:31 Labs: Laboratory Results - last 24 hr 02/21/24 06:31: WBC 3.9 L, RBC 3.49 L, Hgb 11.4 L, Hct 34.2 L, MCV 98.0, MCH 32.7 H, MCHC 33.3, RDW Std Deviation 43.3, RDW Coeff of Dick 12.0, Plt Count 215, MPV 11.1, Immature Gran % (Auto) 0.300, Neut % (Auto) 21.8 L, Lymph % (Auto) 53.9 H, Jerome % (Auto) 20.9 H, Eos % (Auto) 2.8, Baso % (Auto) 0.3, Absolute Neuts (auto) 0.9 L, Absolute Lymphs (auto) 2.12, Nucleated RBC % 0, Sodium 141, Potassium 3.9, Chloride 107, Carbon Dioxide 29.0, Anion Gap 5, BUN 18, Creatinine 0.82, Estim Creat Clear Calc 54.32, Est GFR (MDRD) Af Amer 88, Est GFR (MDRD) Non-Af 73, BUN/Creatinine Ratio 21.8 H, Glucose 105, Calcium 8.9 Radiography Diagnostic Testing: Radiology Impression Hip/Pelvis X-Ray 02/20/24 07:02 IMPRESSION: 2 intraoperative images showing 3 cannulated screws traversing the femoral neck. No complications. Electronically Signed: Albaro Estes MD at 23:57 EST , Physical Exam Narrative Patient resting comfortably in bed No signs of acute distress Satting well on room air Limb is warm to touch, Sensation intact throughout entire lower extremity, including saphenous, sural, superficial and deep peroneal, and tibial distribution. DP/PT pulses bounding. Dorsiflexion plantarflexion strength 5/5 Dressing clear dry intact Calf nontender to palpation, no erythema, no edema. Negative Homans Assessment & Plan Assessment/Plan (1) Subcapital fracture of right hip: QUALIFIERS: Encounter type: initial encounter Fracture type: c losed Qualified Code(s): S72.011A - Unspecified intracapsular fracture of right femur, initial encounter for closed fracture PLAN: Postop day 1 status post right hip pinning 1. Will continue PT today. Patient is to be 25% weightbearing 2. Ultimate discharge per primary team. Orthopedically she is stable for discharge when appropriate. 3. Patient will follow up for post op appointment on in 2 weeks in our office with post orthopedics. This needs to be arranged. 4. Patient has outpatient PT appointment which will need to be scheduled. This should start in the next day or 2 after discharge. 5. WBC 3.9 acute reactive leukocytosis: secondary to pre operative decadron. no acute systemic signs of infection. will monitor, and likely self resolve. 6. H/H 11.4/34.2: post operative anemia secondary to acute blood loss intraoperatively. Patient is asymptomatic at this time. No intraoperative complications. will continue to monitor. no acute interventions. 7. DVT prophylaxis : Patient currently ordered for Lovenox injections. From an orthopedic standpoint this is acceptable, however patient states she was refusing them and doesn't feel that she needed them. Educated patient on the importance of dvt ppx and this is potentially life threatening. recommend to transition to oral medication upon discharge we are recommending aspirin 81 mg twice daily x 4 weeks. overall continue DVT ppx for at least 4 weeks post op. further duration will depend on WB status. also educated patient on СЕРГЕЙ hose and movement for DVT ppx. 8. Pain control: patient instructed to take tylenol 500mg 2 tablets TID. and oxycodone 1-2 tablets every 4-6 hours only as needed for pain control. 9. ok to remove post op dressing. post op day 5 10. patient understands no driving for likely 4-6 weeks 11. orthopaedics will sign off at this time.
[2024-02-21] MEDS: Calcium Carb/Vitamin D 1 TABLET Tablet PO (10:54)
[2024-02-21] MEDS: amLODIPine 5 MG Tablet PO (10:54)
[2024-02-21 10:55] VITALS: BP 165/76
[2024-02-21 11:02] VITALS: BMI 21.8
--- NOTE | 2024-02-21 14:57 | DCINST_ITS ---
Discharge Instructions Diet Discharge Diet: - (DASH diet) Activity Discharge Activity: - (25% weightbearing) Follow Up Care Test Results: Test results from this visit will be discussed in further detail at your follow- up appointment, if applicable. Discharge Plan Admission Admit Date/Time: 02/19/24 13:12 Primary Reason for Your Visit: Right hip fracture Attending Provider: Anh Rolle Primary Care Provider: Monika Fu Consulting Providers: Han Jordan; Louie Gautam Instructions Patient Instructions: ED Fall Prevention Additional Instructions / Restrictions: DISCHARGE INSTRUCTIONS PLEASE READ *Please take this with you to your next doctors appointment* -Okay to remove your dressing 5 days postoperatively -You are 25% weightbearing and orthopedics has advised no driving for 4 to 6 weeks -You will be discharged on aspirin 81 mg twice daily for 4 weeks and possibly longer but this will be determined by your orthopedic physician at follow-up -Please follow-up with orthopedics upon discharge. Please call their office to schedule hospital follow-up appointment upon discharge for 2 weeks. -You will need to begin outpatient physical therapy in the next 1 to 2 days -Due to persistently high blood pressure you were started on amlodipine 5 mg which she will take daily -Please call your primary care provider's office upon discharge to schedule a hospital follow up within 1 week. -For any concerning signs or symptoms please call 911 or proceed to the nearest emergency department Discharge Orders/Prescriptions Prescriptions: New acetaminophen 500 mg Tablet 1,000 mg PO Q8 7 Days Qty: 0 0RF amlodipine 5 mg Tablet 5 mg PO DAILY 30 Days Qty: 30 0RF oxycodone 5 mg Tablet 5 mg PO Q4H PRN PRN (Reason: Pain Score 4-10) 4 Days Qty: 30 0RF aspirin 81 mg capsule 81 mg PO BID 30 Days Qty: 60 0RF Continued buspirone 10 mg tablet 10 mg PO TID alprazolam 0.25 mg tablet 0.25 mg PO QHS PRN (Reason: anxiety) Patient Comments: ONE TABLET BY MOUTH DAILY NEEDED FOR SLEEP/ANXIETY sertraline 100 MG tablet 100 mg PO BID folic acid 0.4 MG tablet 0.4 mg PO DAILY@0800 calcium carbonate-vitamin D3 1 EACH tablet 1 ea PO DAILY [id number] carb-K1 1 EACH tablet 1 ea PO DAILY metoprolol succinate [Toprol XL] 25 mg tablet extended release 24 hr 25 mg PO DAILY Qty: 90 3RF lisinopril 20 mg tablet 20 mg PO DAILY Qty: 90 4RF Discontinued meloxicam 15 mg tablet 15 mg PO DAILY Referrals / Follow Up: Monika Fu DO [Primary Care Provider] - Within 1 Week Han Jordan MD [Med Staff - Active Staff] - Within 2 Weeks Disposition Disposition (needs filled in before D/C Order can be placed): Home, Self Care
[2024-02-21 15:02] VITALS: BMI 21.8
--- NOTE | 2024-02-21 15:06 | PCM.DC.SUM ---
Providers Date of Admission: 02/19/24 Primary Care Physician: Dr. Monika Fu, Consultations 02/19/24 13:31 Consult: Orthopedics Routine Consulting Provider: Han Jordan Reason for Consult: Hip Fx EMERGENT Consult: No MD Notified: Yes Date Notified: 02/19/24 Time Notified: 13:36 Method of Notification: ED Physician Initiated Reason For Visit: NONDISPLACED SUBCAPITAL RIGHT FEMORAL NECK FRACTUR Diagnosis Discharge Diagnosis (1) Subcapital fracture of right hip: Status: Acute Code(s): S72.011A - Unspecified intracapsular fracture of right femur, initial encounter for closed fracture Qualifiers: Encounter type: initial encounter Fracture type: closed Qualified Code(s): S72.011A - Unspecified intracapsular fracture of right femur, initial encounter for closed fracture Plan # Fall with nondisplaced subcapital right femoral neck fracture #Hypertension #Depression/anxiety #Tobacco use Medications at Discharge Home Medications sertraline 100 mg tablet 100 mg PO BID depression 02/09/16 calcium carbonate-vitamin D3 600 mg-125 unit tablet 1 ea PO DAILY suppliment 04/18/18 folic acid 400 mcg tablet 0.4 mg PO DAILY@0800 suppliment 04/18/18 avqdsjwt-ibg-shmth ac 400 mcg-calcium carb 500 mg-vit K1 20 mcg tablet 1 ea PO DAILY suppliment 04/18/18 buspirone 10 mg tablet 10 mg PO TID 05/03/19 alprazolam 0.25 mg tablet 0.25 mg PO QHS PRN anxiety 05/03/20 lisinopril 20 mg tablet 20 mg PO DAILY #90 tabs 10/14/23 metoprolol succinate 25 mg tablet,extended release 24 hr (Toprol XL) 25 mg PO DAILY #90 tabs 10/14/23 acetaminophen 500 mg tablet 1,000 mg (2 x 500 mg) PO Q8 7 days #0 tabs 02/21/24 amlodipine 5 mg tablet 5 mg PO DAILY 30 days #30 tabs 02/21/24 aspirin 81 mg capsule 81 mg PO BID 30 days #60 caps 02/21/24 oxycodone 5 mg tablet 5 mg PO Q4H PRN PRN Pain Score 4-10 4 days #30 tabs 02/21/24 Hospital Course Procedures - (R Hip pinning 02/20/24 w/ Dr. Jordan) Summary of Care Provided Minutes Spent on Discharge: 22 Hospital Course: 68-year-old female history of Takotsubo cardiomyopathy, nicotine use, hypertension, anxiety and depression presented to [facility] ED 02/19/2024 with right hip pain. She was sitting in her garage and got up and tripped on a flight of stairs and injured her right hip. Patient was found to have nondisplaced subcapital right femoral neck fracture and she underwent right hip pinning 02/20/2024. Patient did very well and plan was to go home. Patient did have persistently elevated blood pressures some leg pain was added. On day of discharge she reports feeling fair overall, does still have pain but is comfortable with going home. Discharge instructions as follows: -Okay to remove your dressing 5 days postoperatively -You are 25% weightbearing and orthopedics has advised no driving for 4 to 6 weeks -You will be discharged on aspirin 81 mg twice daily for 4 weeks and possibly longer but this will be determined by your orthopedic physician at follow-up -Please follow-up with orthopedics upon discharge. Please call their office to schedule hospital follow-up appointment upon discharge for 2 weeks. -You will need to begin outpatient physical therapy in the next 1 to 2 days -Due to persistently high blood pressure you were started on amlodipine 5 mg which she will take daily -Please call your primary care provider's office upon discharge to schedule a hospital follow up within 1 week. -For any concerning signs or symptoms please call 911 or proceed to the nearest emergency department Physical Exam Narrative General: Alert, oriented, no apparent distress HEENT: Atraumatic, normocephalic Eyes: Anicteric, normal conjunctiva, extraocular movements grossly intact Neck: Supple Respiratory: Clear to auscultation bilaterally, normal respiratory effort Cardiovascular: Regular rate and rhythm GI: Soft, nontender, nondistended Extremities: No edema Musculoskeletal: Moving all extremities Neuro: No overt focal neurological deficits, does not appear to have almost tic-like movements Skin: No rashes appreciated Psych: Little bit anxious but cooperative Weight / BMI Weight Weight: 56.6 kg Body Mass Index (BMI) 21.8 ABG / Lab / Microbiology Data 02/21/24 06:31 02/21/24 06:31 Laboratory: Laboratory Results - last 24 hr 02/21/24 06:31: WBC 3.9 L, RBC 3.49 L, Hgb 11.4 L, Hct 34.2 L, MCV 98.0, MCH 32.7 H, MCHC 33.3, RDW Std Deviation 43.3, RDW Coeff of Dick 12.0, Plt Count 215, MPV 11.1, Immature Gran % (Auto) 0.300, Neut % (Auto) 21.8 L, Lymph % (Auto) 53.9 H, [place] % (Auto) 20.9 H, Eos % (Auto) 2.8, Baso % (Auto) 0.3, Absolute Neuts (auto) 0.9 L, Absolute Lymphs (auto) 2.12, Nucleated RBC % 0, Differential Comment COMMENT, Sodium 141, Potassium 3.9, Chloride 107, Carbon Dioxide 29.0, Anion Gap 5, BUN 18, Creatinine 0.82, Estim Creat Clear Calc 54.32, Est GFR (MDRD) Af Amer 88, Est GFR (MDRD) Non-Af 73, BUN/Creatinine Ratio 21.8 H, Glucose 105, Calcium 8.9 Radiography Diagnostic Testing: Radiology Impression Hip/Pelvis X-Ray 02/20/24 07:02 IMPRESSION: 2 intraoperative images showing 3 cannulated screws traversing the femoral neck. No complications. Electronically Signed: Albaro Estes MD at 23:57 EST , D/C Instructions Discharge Diet: - (DASH diet) Discharge Activity: - (25% weightbearing) Meaningful Use Info Meaningful Use Meaningful Use Diagnoses (Choose all that apply): None applicable Ischemic Stroke Statin Dosing Therapy Reference: STATIN DOSE THERAPY REFERENCE: * Patients > 75 years receive moderate or high dose statin therapy. * Patients 75 years or YOUNGER should receive HIGH intensity statin dose unless contraindicated. You will be required to document reason for non-treatment if statin daily dose does not meet guidelines. HIGH DOSE STATIN THERAPY DAILY Atorvastatin > than or = to 40 mg Rosuvastatin > than or = to 20 mg Amlodipine + Atorvastatin > than or = to 2.5/40 mg Ezetimibe + Simvastatin 10/80 mg Simvastatin 80mg Discharge Plan Admission Admit Date/Time: 11/16/24 13:12 Primary Reason for Your Visit: Right hip fracture Attending Provider: Anh Rolle Primary Care Provider: Monika Fu Consulting Providers: Han Jordan; Louie Gautam Instructions Patient Instructions: ED Fall Prevention Additional Instructions / Restrictions: DISCHARGE INSTRUCTIONS PLEASE READ *Please take this with you to your next doctors appointment* -Okay to remove your dressing 5 days postoperatively -You are 25% weightbearing and orthopedics has advised no driving for 4 to 6 weeks -You will be discharged on aspirin 81 mg twice daily for 4 weeks and possibly longer but this will be determined by your orthopedic physician at follow-up -Please follow-up with orthopedics upon discharge. Please call their office to schedule hospital follow-up appointment upon discharge for 2 weeks. -You will need to begin outpatient physical therapy in the next 1 to 2 days -Due to persistently high blood pressure you were started on amlodipine 5 mg which she will take daily -Please call your primary care provider's office upon discharge to schedule a hospital follow up within 1 week. -For any concerning signs or symptoms please call 911 or proceed to the nearest emergency department Discharge Orders/Prescriptions Prescriptions: New acetaminophen 500 mg Tablet 1,000 mg PO Q8 7 Days Qty: 0 0RF amlodipine 5 mg Tablet 5 mg PO DAILY 30 Days Qty: 30 0RF oxycodone 5 mg Tablet 5 mg PO Q4H PRN PRN (Reason: Pain Score 4-10) 4 Days Qty: 30 0RF aspirin 81 mg capsule 81 mg PO BID 30 Days Qty: 60 0RF Continued buspirone 10 mg tablet 10 mg PO TID alprazolam 0.25 mg tablet 0.25 mg PO QHS PRN (Reason: anxiety) Patient Comments: ONE TABLET BY MOUTH DAILY NEEDED FOR SLEEP/ANXIETY sertraline 100 MG tablet 100 mg PO BID folic acid 0.4 MG tablet 0.4 mg PO DAILY@0800 calcium carbonate-vitamin D3 1 EACH tablet 1 ea PO DAILY bh-iax-zzjko-calcium carb-K1 1 EACH tablet 1 ea PO DAILY metoprolol succinate [Toprol XL] 25 mg tablet extended release 24 hr 25 mg PO DAILY Qty: 90 3RF lisinopril 20 mg tablet 20 mg PO DAILY Qty: 90 4RF Discontinued meloxicam 15 mg tablet 15 mg PO DAILY Referrals / Follow Up: Monika Fu, DO [Primary Care Provider] - Within 1 Week Han Jordan MD [Med Staff - Active Staff] - Within 2 Weeks Disposition Disposition (needs filled in before D/C Order can be placed): Home, Self Care Charges/Coding Visit Charges Inpatient E&M: 04213 Disch Hosp
[2024-02-21 15:35] VITALS: BP 150/90; PULSE 83; RESP 16; TEMP 36.6; O2SAT 97
--- NOTE | 2024-02-21 15:47 | PHA.DC.MC.R ---
Pharmacy [facility] has performed discharge medication reconciliation and counseling for this patient. The patient's discharge medication list was reviewed for discrepancies and discrepancies were resolved. The patient was counseled on the following discharge medications and changes in medications for homegoing were reviewed. The Reason for Use, instructions for use, and potential side effects were reviewed for all new medications. The patient's questions regarding all of their medications were answered. 1. Amlodipine 5 mg PO daily 2. Acetaminophen 1000 mg PO Q8H 3. Aspirin 81 mg PO BID 4. Oxycodone 5 mg PO Q4H PRN pain 4-10 x 4 days The patient was able to verbally demonstrate an understanding of their discharge medications. The patient was counselled on new medications by pharmacy laboratory technician Pino. Medications at Discharge Home Medications sertraline 100 mg tablet 100 mg PO BID depression 02/09/16 calcium carbonate-vitamin D3 600 mg-125 unit tablet 1 ea PO DAILY suppliment 04/18/18 folic acid 400 mcg tablet 0.4 mg PO DAILY@0800 suppliment 04/18/18 pjvtafum-bhj-mhqcd ac 400 mcg-calcium carb 500 mg-vit K1 20 mcg tablet 1 ea PO DAILY suppliment 04/18/18 buspirone 10 mg tablet 10 mg PO TID 05/03/19 alprazolam 0.25 mg tablet 0.25 mg PO QHS PRN anxiety 05/03/20 lisinopril 20 mg tablet 20 mg PO DAILY #90 tabs 10/14/23 metoprolol succinate 25 mg tablet,extended release 24 hr (Toprol XL) 25 mg PO DAILY #90 tabs 10/14/23 acetaminophen 500 mg tablet 1,000 mg (2 x 500 mg) PO Q8 7 days #0 tabs 02/21/24 amlodipine 5 mg tablet 5 mg PO DAILY 30 days #30 tabs 02/21/24 aspirin 81 mg capsule 81 mg PO BID 30 days #60 caps 02/21/24 oxycodone 5 mg tablet 5 mg PO Q4H PRN PRN Pain Score 4-10 4 days #30 tabs 02/21/24
== END 2024-02-21 15:55 | disposition home or self-care (01) | DRG 482 ==
LOC: ED 13:14 → MS3 13:53
PROVIDERS: Orthopaedic Surgery; Admitting Provider Internal Medicine; Emergency Provider Emergency Medicine; PCP Family Medicine; Visit Provider Internal Medicine
PROC: 0QH634Z Insertion of Internal Fixation Device into Right Upper Femur, Percutaneous Approach (ICD-10-PCS; principal; 2024-02-20 08:00)
DX: S72.011A Unspecified intracapsular fracture of right femur, initial encounter for closed fracture (principal); F10.21 Alcohol dependence, in remission; I10 Essential (primary) hypertension; F32.A Depression, unspecified; W10.9XXA Fall (on) (from) unspecified stairs and steps, initial encounter; F41.9 Anxiety disorder, unspecified; F17.210 Nicotine dependence, cigarettes, uncomplicated; Y92.019 Unspecified place in single-family (private) house as the place of occurrence of the external cause; Z79.899 Other long term (current) drug therapy
CPT/HCPCS: 36415; 71045; 73501; 73502; 76000; 80048; 80053; 83735; 84100; 85025; 86850; 86900; 86901; 93005; 94668; 97162; 97166; 99252; 99284; C1713; J7120; A4216; G0463; J2405

== ENCOUNTER → 2024-04-26 | Outpatient (CLI) | payer OTHER, SELFPAY ==
--- NOTE | 2024-04-26 15:47 | BD_ITS ---
STUDY: DUAL ENERGY X-RAY ABSORPTIOMETRY / DXA REASON FOR EXAM: Female, 68 years old. 733.00OsteoporosisBONE DENSITY REASON FOR EXAM TECHNIQUE: Bone Mineral Density (BMD) measurements of lumbar spine and left hip were obtained. COMPARISON: Comparison is made with prior study of July 08, 2017. FINDINGS: Lumbar Spine (L1-L4): g/cm2 (0.766) / T-score (-2.6) / Z-score (-0.5) Findings are suggestive of osteoporosis with a high fracture risk. Left Femur Total: g/cm2 (0.718) / T-score (-1.8) / Z-score (-0.4) Left Femoral Neck: g/cm2 (0.695) / T-score (-1.4) / Z-score (0.4) The T-Scores on the most recent prior examination were: Lumbar Spine (L1-L4): There has been worsening of bone density since the previous examination. Left Femur Total: which represents a worsening of 4.7%. BD/Dexa Bone Density Study IMPRESSION: The patient is considered osteoporotic as outlined below according to World [employer] Organization (WHO) criteria with a high fracture risk. There has been worsening of bone density since the previous examination. Reference Information: The T-score is the number of standard deviations above or below the standard which is normal for young adults at their peak bone mineral density. The World Health Organization (WHO) interprets the T-scores as follows: Above -1 Normal bone density Between -1 and -2.5 Osteopenia Equal to / or below -2.5 Osteoporosis As a practical clinical guideline, osteopenia may be graded as follows: Mild -1 through -1.5 Moderate -1.6 through -2.0 Severe -2.1 through -2.4 The Z-score is the number of standard deviations above or below age-matched controls. A Z-score of less than -1.5 would be considered abnormal. References: 1. NIH Osteoporosis and Related Bone Diseases www osteo.org 2. International Society for Clinical Densitometry www iscd.org 3. National Osteoporosis Foundation www nof.org Electronically Signed: Bernardo Leonard MD at 11:31 EST ,
== END | disposition home or self-care (01) ==
LOC: OPBD 15:42
PROVIDERS: PCP Family Medicine; Referring Provider Orthopaedic Surgery Orthopaedic Surgery of the Spine; Visit Provider Orthopaedic Surgery Orthopaedic Surgery of the Spine
DX: M81.0 Age-related osteoporosis without current pathological fracture (principal)
CPT/HCPCS: 77080

== ENCOUNTER → 2024-05-19 | Outpatient (CLI) | payer MEDICARE, SELFPAY ==
[2024-05-19 12:07] LABS: Absolute Lymphocyte Count 1.98 X10^3/uL (0.83-4.51); Absolute Neutrophil Count 1.3 X10^3/uL (2.0-7.7); Basophil# 0.03 X10^3/uL; Basophil% 0.7 % (0-1); Eosinophil# 0.11 X10^3/uL; Eosinophils% 2.5 % (0-5); Hematocrit 41.3 % (37-47); Lymphocyte # 1.98 X10^3/ul (0.83-4.51); Lymphocyte % 45.2 % (19-41); Mean Corp Hgb Conc 33.9 g/dL (32-36); Mean Corpuscular Hgb 32.9 pg (27.0-32.0); Mean Corpuscular Volume 97.2 fL (81-99); Mean Platelet Vol. 11.8 fl (6.2-12.0); Monocyte# 0.98 X10^3/uL; Monocyte% 22.4 % (0-10); NRBC Flagged by Analyzer 0 % (0-5); Neutrophil # 1.27 X10^3/uL (2.7-7.7); POSITIVE COUNT YES; RBC Distribution Width CV 13.9 % (11.6-14.6); RBC Distribution Width SD 49.7 fl (35.1-43.9); Red Blood Count 4.25 M/mm3 (4.2-5.4); White Blood Count 4.4 K/mm3 (4.4-11.0)
[2024-05-19 13:30] LABS: Differential Indicated SCAN CRITERIA MET
[2024-05-19 13:38] LABS: Differential Comment SCANNED; Platelet Estimate ADEQUATE (ADEQ); Platelet Morphology CLUMPED
[2024-05-19 13:39] LABS: Ovalocyte 1+
== END | disposition home or self-care (01) ==
LOC: LAB 10:51
PROVIDERS: PCP Family Medicine; Referring Provider Family Medicine; Visit Provider Family Medicine
DX: D75.839 Thrombocytosis, unspecified (principal)
CPT/HCPCS: 36415; 85025